=== PATIENT | male | born 1950 | race African-American/Black ===

== ENCOUNTER 2016-05-17 17:06 | Inpatient (IN) ==
[2016-05-17] MEDS ORDERED: PANTOPRAZOLE 40 MG VIAL IV STA (19:10)
[2016-05-17] MEDS ORDERED: ONDANSETRON 4 MG/2 ML VIAL IV STA (19:10)
[2016-05-17] MEDS ORDERED: SODIUM CHLORIDE 0.9% 1,000 ML IV STA (19:10)
[2016-05-17] MEDS ORDERED: METOPROLOL TARTRATE 5 MG/5 ML VIAL IV STA (19:12)
[2016-05-17] MEDS ORDERED: METOCLOPRAMIDE 10 MG/2 ML VIAL IV STA (19:12)
--- NOTE | 2016-05-17 19:15 | Emergency Department Note ---
Arrival - Arrival Chief Complaint: Neuro Stated Complaint: LEG CRAMPS ED Nursing Triage Note: PT C/O WEAKNESS TO LEFT UPPER AND LOWER EXTREMITIES. PT STATES HAD MUSCLES SPASMS IN LEFT LEG 2 DAYS AGO, GIVEN BACLOFEN BY DR VELOZ. PT STATES HE HAS HAD N/V SINCE THEN. PT STATES SINCE YESTERDAY MORNING HE HAS HAD INCREASED WEAKNESS IN LEFT ARM/HAND. STATES HAS DROPPED HIS CANE AND A GLASS A WATER WITHOUT REALIZING HE DID NOT HAVE A [facility]. NO FACIAL DROOP OR SLURRED SPEECH NOTED. Mode of Arrival: Wheelchair Limitations: No Limitations Source: Patient Time Seen by Provider: 05/17/16 19:10 - History of Present Illness HPI Narrative: This 65-year-old black male presents primarily for complaints of nausea and vomiting following beginning Lyrica for muscle cramps of the left lower extremity and to a lesser extent the right lower extremity. However the patient also gives a history of feeling weak with the left upper and lower extremities approximately 7-10 days ago. However on further questioning it would appear his weakness is more association with cramps and what that does to his function. He denies any recent headaches, visual changes, chest pain, shortness breath, diarrhea, chills, fever, slurred speech, or focal weakness. Currently he is in no acute distress. Onset (ago): day(s) Consistency: constant Severity: moderate Allergies/Adverse Reactions: Allergies Allergy/AdvReac Type Severity Reaction Status Date / Time metformin Allergy Vomiting Verified 05/17/16 17:38 Home Medications: Home Medications Medication Instructions Recorded Confirmed Type Aspirin EC Tab 81 mg PO DAILY 05/17/16 05/17/16 History Atorvastatin [Lipitor] 10 mg PO DAILY 05/17/16 05/17/16 History Baclofen Tab [Lioresal] 5 mg PO TID W/MEALS 05/17/16 05/17/16 History Cetirizine Tab [ZyrTEC Tab] 10 mg PO BEDTIME 05/17/16 05/17/16 History Doxazosin [Cardura] 4 mg PO DAILY 05/17/16 05/17/16 History Ferrous Sulfate Tab [Feosol 325 mg PO BID 05/17/16 05/17/16 History Original Tab] Isosorbide Mononitrate [Isosorbide 30 mg PO DAILY 05/17/16 05/17/16 History Mononitrate ER] Mupirocin 2% Oint [Bactroban 2% 1 applic TOP BID 05/17/16 05/17/16 History Oint] glipiZIDE [Glipizide] 5 mg PO BID 05/17/16 05/17/16 History hydrALAZINE TAB [Apresoline Tab] 75 mg PO TID 05/17/16 05/17/16 History Review of System - Review of System 12 point system: reviewed and no additional remarkable complaints except as stated - Review of System Constitutional: Present: as per HPI Respiratory: Present: as per HPI Cardiovascular: Present: as per HPI Gastrointestinal: Present: as per HPI Neurological: Present: as per HPI Medical,Surgical,& Family Hx - Medical History Cardio: History of: Hypertension Endocrine: History of: Diabetes Mellitus (IDDM), Dyslipidemia - Social History Smoking Status: Never smoker Frequency of Alcohol Use: None Type of Drug Use: None Exam Physical Examination: GENERAL: Well developed, well nourished black male in no acute distress. HEENT: Normocephalic. No trauma. Moist mucous membranes. EOMI. PERRLA. ENT normal NECK: Supple. No adenopathy. CARDIAC: Regular. No murmurs. Heart rate 70 CHEST: Clear to auscultation. No respiratory distress. O2 sat 98% ABDOMEN: Soft. Nontender. Active bowel sounds. EXTREMITIES: No trauma. Normal ROM. No pedal edema. Right BKA SKIN: No diaphoresis. No rash. NEURO: Alert. Oriented 3. Motor, sensory, vibratory intact with no evidence of left-sided weakness at this time. Vital Signs: Vital Signs Temperature 97.6 F 05/17/16 17:28 Pulse Rate 70 05/17/16 17:28 Respiratory Rate 18 05/17/16 17:28 Blood Pressure 229/88 05/17/16 17:28 O2 Sat by Pulse Oximetry 98 05/17/16 17:28 Course - Reevaluation(s) Reevaluation #1: Discussed with patient need for hospitalization and follow-up on his abnormal laboratory values. - Consultations Consultation #1: Discussed with Dr. Alexi Solomon who will admit to Dr. Kat Liu further evaluation treatment. Results - Labs CBC & BMP: 05/17/16 19:36 05/17/16 19:36 Labs: I have reviewed the laboratory noted the abnormal cardiac enzymes. - Impressions EKG: First-degree heart block, normal QRS duration. Left ventricular hypertrophy with left ventricular strain. Heart rate 61. No acute injury pattern noted. - Diagnostic Findings Procedure: Abdominal x-ray: image reviewed by me, report reviewed by me ( nonspecific gas and feces), CT: image reviewed by me, report reviewed by me ( head: No acute injury pattern) Disposition Clinical Impression: abnormal cardiac enzymes, muscle spasms Case discussed with: patient Disposition: Still a Patient Condition: Stable Time of Disposition: 21:22
[2016-05-17] MEDS ORDERED: PANTOPRAZOLE 40 MG VIAL IV ONE (19:31)
[2016-05-17] MEDS ORDERED: ONDANSETRON 4 MG/2 ML VIAL ONE (19:31)
[2016-05-17] MEDS ORDERED: METOPROLOL TARTRATE 5 MG/5 ML VIAL IV ONE (19:31)
[2016-05-17] MEDS ORDERED: METOCLOPRAMIDE 10 MG/2 ML VIAL ONE (19:31)
--- NOTE | 2016-05-17 19:42 | CT Report ---
Exam: CT scan of brain without contrast Date: 05/17/2016 Indication: Left-sided weakness Comparison: None Patient's classification: Emergency department Technical: Images were obtained from the skull base to the vertex without the use of intravenous contrast. Dose reduction was performed with decreasing kv and mA and automated exposure Total DLP: 1053.4 mGy*cm Findings: The brainstem, cerebellum and cerebral hemispheres are intact. The paranasal sinuses are unremarkable. Mastoids are intact. The ventricles are located in normal position without midline shift or mass effect. The globes and sella are intact. The calvarium is unremarkable. Impression: 1. No acute hemorrhage infarction or mass effect. If symptoms or MRI is recommended. PROCEDURE INTERPRETED AT [facility] DEPARTMENT OF RADIOLOGY Final Report Signed by: Dr. Tarun Viera
--- NOTE | 2016-05-17 19:45 | XRay Report ---
Exam: XR abdomen 2V Date: 05/17/2016 7:10 PM Indication: Abdominal pain Comparison: None Technical:Supine erect imaging Findings: Mild cardiomegaly present. The liver and spleen shadows are mostly obscured. The renal shadows are obscured Nonspecific GI pattern is present. Degenerative change present along the thoracolumbar spine. Vascular plaque is present. Impression: 1. Nonspecific GI pattern 2. Degenerative spondylosis changes thoracolumbar spine and hips reveal mild arthritic change present PROCEDURE INTERPRETED AT [facility] DEPARTMENT OF RADIOLOGY Final Report Signed by: Dr. Tarun Viera
[2016-05-17 20:14] LABS: Basophils % 0.6 % (0.0-0.8); Eosinophils # 0.1 10*3/uL (0.0-0.87); Eosinophils % 1.1 % (0.00-10.9); Hematocrit 36.7 VOL% (42.0-52.0); Hemoglobin 11.9 GM/DL (14.0-18.0); Immature Granulocytes % 0.5 %; Immature Granulocytes Absolute 0.03 #; Lymphocytes # 0.6 10*3/uL (1.4-4.0); Lymphocytes % 9.6 % (21.2-54.2); Mean Corpuscular HGB Conc 32.4 GM/DL (32-36); Mean Corpuscular Hemoglobin 30 PG (27-34); Mean Corpuscular Volume 92.4 FL (87-102); Mean Platelet Volume 12.9 FL (9.6-12.0); Monocytes # 0.4 10*3/uL (0.11-0.8); Monocytes % 5.6 % (1.7-12.7); Neutrophils # 5.4 10*3/uL (1.4-7.4); Neutrophils % 82.6 % (38.7-73.9); Platelet Count 169 10*3/uL (130-400); Red Blood Count 3.97 10*6/uL (3.8-5.5); White Blood Count 6.6 10*3/uL (4.5-13.71)
[2016-05-17 20:33] LABS: Albumin 3.6 G/DL (3.4-5.0); Bilirubin,Total 0.6 MG/DL (0.2-1.0); CKMB % 1.2 %; Calcium 9.2 MG/DL (8.5-10.1); Osmolality,Calculated 303.3 MOS/KG (273-304); Potassium 4.8 MMOL/L (3.5-5.1); Total Protein 7.2 G/DL (6.4-8.3)
[2016-05-17 20:34] LABS: Troponin I Only 0.054 NG/ML (0.00-0.045)
--- NOTE | 2016-05-17 20:38 | EKG Report ---
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
[2016-05-17] MEDS ORDERED: hydrALAZINE 20 MG/1 ML VIAL IV STA (21:02)
[2016-05-17] MEDS ORDERED: hydrALAZINE 20 MG/1 ML VIAL ONE (21:02)
[2016-05-17] MEDS ORDERED: ONDANSETRON 4 MG/2 ML VIAL IV PRN (21:23)
[2016-05-17 23:12] LABS: Apearance,Urine Slightly Hazy (Clear); Bilirubin,Urine Negative (Negative); Blood, Urine Small mg/dL (Negative); Glucose,Urine (UA) 50 mg/dL (Negative); Granular Casts,Urine 4 /LPF (0-1); Hyaline Casts,Urine 3 /LPF (0-3); Ketones,Urine 5 mg/dL (Negative); Mucus,Urine Occasional /LPF (Occasional); Nitrite,Urine Negative (Negative); Protein,Urine >=500 MG/DL; RBC,Urine 7 /HPF (0-4); Urine Color Yellow (Yellow); Urine Specific Gravity 1.019 (1.001-1.035); Urine Urobilinogen < 2.0 EU/DL (0.2-1.0); WBC,Urine 1 /HPF (0-6)
[2016-05-17] MEDS ORDERED: DEXTROSE 50% 25 GM/50 ML VIAL IV PRN (23:17)
[2016-05-17] MEDS ORDERED: GLUCAGON 1 MG VIAL IM PRN (23:17)
[2016-05-18 04:28] LABS: CKMB % 1.1 %
[2016-05-18 04:32] LABS: Troponin I Only 0.073 NG/ML (0.00-0.045)
--- NOTE | 2016-05-18 07:34 | EKG Report ---
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
[2016-05-18] MEDS: glipiZIDE 5 MG TABLET PO SCH ×2 (08:34→17:17)
[2016-05-18] MEDS: INSULIN LISPRO 100 UNIT/ML SUBCUT SCH ×4 (08:37→21:02)
[2016-05-18] MEDS: PANTOPRAZOLE 40 MG TABLET PO SCH (08:38)
[2016-05-18] MEDS: NITROGLYCERIN 2% OINT 1 INCH/GM PACK TOP SCH ×2 (08:57→21:07)
--- NOTE | 2016-05-18 14:17 | Internal Med History&Physical ---
Assessment and Plan (1) Diabetes Status: Chronic Current Visit: Yes Qualifiers: Diabetes mellitus type: type 2 Diabetes mellitus complication status: with circulatory complication Diabetes mellitus complication detail: with peripheral angiopathy with gangrene Diabetes mellitus group home insulin use: without technician terminal and repeater use Qualified Code(s): E11.52 - Type 2 diabetes mellitus with diabetic peripheral angiopathy with gangrene (2) Hypertension Problem details: uncontrolled and historically uncontrolled Status: Chronic Current Visit: Yes Qualifiers: Hypertension type: essential hypertension Qualified Code(s): I10 - Essential (primary) hypertension (3) Numbness and tingling Status: Acute Current Visit: Yes (4) Noncompliance Status: Acute Current Visit: Yes History of Present Illness Chief complaint: acute numbness History of present illness: Mr. Casarez is a 65 year old male with history of HTN, DM, left below knee amputation, OA, who presented to ER with numbness and tingling to arms acutely. CT brain negative. He was found to have taken an overdose of Baclofen because of cramping in his leg. Home Medications Medication Instructions Recorded Confirmed Type Aspirin EC Tab 81 mg PO DAILY 05/17/16 05/17/16 History Atorvastatin [Lipitor] 10 mg PO DAILY 05/17/16 05/17/16 History Baclofen Tab [Lioresal] 5 mg PO TID W/MEALS 05/17/16 05/17/16 History Cetirizine Tab [ZyrTEC Tab] 10 mg PO BEDTIME 05/17/16 05/17/16 History Doxazosin [Cardura] 4 mg PO DAILY 05/17/16 05/17/16 History Ferrous Sulfate Tab [Feosol 325 mg PO BID 05/17/16 05/17/16 History Original Tab] Isosorbide Mononitrate [Isosorbide 30 mg PO DAILY 05/17/16 05/17/16 History Mononitrate ER] Mupirocin 2% Oint [Bactroban 2% 1 applic TOP BID 05/17/16 05/17/16 History Oint] glipiZIDE [Glipizide] 5 mg PO BID 05/17/16 05/17/16 History hydrALAZINE TAB [Apresoline Tab] 75 mg PO TID 05/17/16 05/17/16 History Allergies Allergy/AdvReac Type Severity Reaction Status Date / Time metformin Allergy Vomiting Verified 05/17/16 17:38 Medical,Surgical,& Family Hx - Medical History Cardio: History of: Hypertension Psychological: History of: Anxiety Disorders HEENT: History of: Eye Problem Endocrine: History of: Diabetes Mellitus (IDDM), Dyslipidemia Gastrointestinal: History of: GERD Musculoskeletal: History of: Amputation Hematology: History of: Anemia (chronic disease) - Surgical History Orthopedic Surgeries: Surgical HX of;: Orthopedic Surgery (left lower extremitiy amputation) - Family History Family History: Reports;: Family Diabetes, Family Heart Disease, Family Hypertension - Social History Smoking Status: Never smoker Frequency of Alcohol Use: None Type of Drug Use: None Marital Status: Lives With:: Spouse Functional capacity: independent ambulation - Constitutional Constitutional: Present: weakness - Respiratory Respiratory: Present: dyspnea (occasionaly) - Gastrointestinal Gastrointestinal: Present: nausea - Musculoskeletal Musculoskeletal: Present: arthralgias, myalgias - Neurological Neurological: Present: focal weakness Exam - Constitutional Vitals: Period Temp Pulse Resp BP Sys/Blankenship Pulse Ox Last 24 Hr 97.8 F-98.6 F 63-69 16-18 150-214/54-83 98-100 General appearance: no acute distress - Head Head exam: Present: normocephalic - Eye Eye exam: Present: EOMI - Respiratory Respiratory exam: Present: clear to auscultation bilaterally - Cardiovascular Cardiovascular exam: Present: regular rate and rhythm - GI/Abdominal GI/Abdominal exam: Present: soft. Absent: tenderness - Extremities Exam Extremities exam: Absent: edema (left lower extremitiy) - Neurological Exam Neurological exam: Present: alert, oriented X3 - Psychiatric Psychiatric exam: Present: normal affect, normal mood - Skin Skin exam: Present: warm, dry Results - Labs CBC & BMP: 05/17/16 19:36 05/17/16 19:36 - EKG EKG shows: sinus rhythm - Diagnostic Findings Procedure: Chest x-ray: report reviewed by me Quality Measures - Stroke Onset of Symptoms Date: 05/14/16
[2016-05-18] MEDS ORDERED: DOXAZOSIN 4 MG TABLET PO ONE (20:16)
[2016-05-18] MEDS ORDERED: ASPIRIN EC 81 MG TABLET PO ONE (20:17)
[2016-05-18] MEDS ORDERED: ISOSORBIDE MONONITRATE 30 MG TABLET PO ONE (20:19)
--- NOTE | 2016-05-18 20:42 | Discharge Summary ---
Hospital Course - Hospital Course Hospital Course: Mr. Casarez is a 65 year old male with history of HTN, DM, left below knee amputation, OA, who presented to ER with numbness and tingling to arms acutely. CT brain negative. He was found to have taken an overdose of Baclofen because of cramping in his leg. Will discharge him to home and will discontinue Baclofen. He can try Zanaflex at bedtime for muscle cramps. Diagnosis - Discharge Diagnosis (1) Diabetes Status: Chronic (2) Hypertension Status: Chronic (3) Numbness and tingling Status: Acute (4) Noncompliance Status: Acute Discharge Plan - Discharge Data Disposition: Disch To Home/Self Care Condition at Discharge: Stable Discharge Diet: heart healthy, low fat, low cholesterol Activity: increase activity as tolerated - Discharge Medications New glipiZIDE [Glucotrol] 15 mg PO BIDAC #60 tablet hydrALAZINE TAB [Apresoline Tab] 100 mg PO TID #90 tablet Continue Doxazosin [Cardura] 4 mg PO DAILY Mupirocin 2% Oint [Bactroban 2% Oint] 1 applic TOP BID Isosorbide Mononitrate [Isosorbide Mononitrate ER] 30 mg PO DAILY Cetirizine Tab [ZyrTEC Tab] 10 mg PO BEDTIME Atorvastatin [Lipitor] 10 mg PO DAILY Aspirin EC Tab 81 mg PO DAILY Ferrous Sulfate Tab [Feosol Original Tab] 325 mg PO BID Discontinued glipiZIDE [Glipizide] 5 mg PO BID hydrALAZINE TAB [Apresoline Tab] 75 mg PO TID Baclofen Tab [Lioresal] 5 mg PO TID W/MEALS - Follow Up or Referral Follow Up: Elizabeth Liu DO [Physician] - - Forms/Instructions Additional Discharge Instructions: Follow up with Dr. Saúl Liu at clinic within 2 weeks. He can be discharged tomorrow, Saturday, morning after breakfast. Exam - Constitutional Vitals: Period Temp Pulse Resp BP Sys/Blankenship Pulse Ox Last 24 Hr 97.8 F-98.6 F 62-69 16-20 150-214/54-83 98-100 Exam: General appearance: no acute distress - Respiratory Respiratory exam: Present: clear to auscultation bilaterally - Cardiovascular Cardiovascular exam: Present: regular rate and rhythm - GI/Abdominal GI/Abdominal exam: Present: soft. Absent: tenderness - Extremities Exam Extremities exam: Absent: edema (left lower extremitiy) - Neurological Exam Neurological exam: Present: alert, oriented X3 - Psychiatric Psychiatric exam: Present: normal affect, normal mood - Skin Skin exam: Present: warm, dry Discharge Results Labs on day of discharge: Labs from last 24 hours 05/18/16 05/18/16 05/18/16 19:54 15:22 11:21 POC Glucose 208 H 199 H 120 H Total Creatine Kinase CK-MB (CK-2) CK and CKMB Interp Troponin I 05/18/16 05/18/16 07:02 03:28 POC Glucose 172 H Total Creatine Kinase 596 H D CK-MB (CK-2) 6.7 H CK and CKMB Interp 1.1 Troponin I 0.073 H D DS: Provider Date of admission: 05/17/16 21:22 Primary care physician: . No PCP Attending physician on admission: Elizabeth Liu DO Discharging clinician: Elizabeth Liu DO Expected date of discharge: 05/19/16
[2016-05-18] MEDS ORDERED: CETIRIZINE 10 MG TABLET PO SCH (21:00)
[2016-05-18] MEDS ORDERED: ROSUVASTATIN 10 MG TABLET PO SCH (21:00)
[2016-05-19] MEDS ORDERED: DOXAZOSIN 4 MG TABLET PO SCH (09:00)
[2016-05-19] MEDS ORDERED: ASPIRIN EC 81 MG TABLET PO SCH (09:00)
[2016-05-19] MEDS ORDERED: ISOSORBIDE MONONITRATE 30 MG TABLET PO SCH (09:00)
[2016-05-19] MEDS: INSULIN LISPRO 100 UNIT/ML SUBCUT SCH ×2 (09:45→12:34)
--- NOTE | 2016-05-19 09:48 | Internal Med Progress Note ---
Assessment and Plan (1) Numbness and tingling Status: Acute Assessment and plan: 65-year-old male admitted to acute care * Diabetes. Blood sugar is low this morning. Will recheck Accu-Chek. May have to decrease his dose * Hypertension. Blood pressure is stable * Baclofen overdose. This has been discontinued. * Patient will go home. His blood sugar was 147 today Current Visit: Yes (2) Diabetes Status: Chronic Current Visit: Yes Qualifiers: Diabetes mellitus type: type 2 Diabetes mellitus complication status: with circulatory complication Diabetes mellitus complication detail: with peripheral angiopathy with gangrene Diabetes mellitus meterman insulin use: without [place] [facility] use Qualified Code(s): E11.52 - Type 2 diabetes mellitus with diabetic peripheral angiopathy with gangrene (3) Hypertension Problem details: uncontrolled and historically uncontrolled Status: Chronic Current Visit: Yes Qualifiers: Hypertension type: essential hypertension Qualified Code(s): I10 - Essential (primary) hypertension Internal Medicine - PN: Subj Interval history: Patient is feeling fine this morning. No chest pain or shortness of breath. He feels he is back to normal and wants to go home. Exam (Progress Note) - Constitutional Vitals: Period Temp Pulse Resp BP Sys/Blankenship Pulse Ox Last 24 Hr 97.8 F-98.7 F 62-75 18-20 140-192/60-84 97-100 General appearance: over weight - Head Head exam: Present: normal inspection - Eye Eye exam: Present: EOMI - Neck Neck exam: Present: normal inspection - Respiratory Respiratory exam: Present: clear to auscultation bilaterally - GI/Abdominal GI/Abdominal exam: Present: normal bowel sounds, soft. Absent: tenderness - Extremities Exam Extremities exam: Present: other (Right below-knee amputation ) Results - Labs CBC & BMP: 05/17/16 19:36 05/17/16 19:36 Quality Measures - Stroke Onset of Symptoms Date: 05/14/16 Specialty Discharge - Follow Up or Referrals Follow up with: Elizabeth Liu DO [Physician] -
[2016-05-19 10:30] VITALS: BP 133/55
[2016-05-19] MEDS: glipiZIDE 5 MG TABLET PO SCH (10:42)
[2016-05-19] MEDS: NITROGLYCERIN 2% OINT 1 INCH/GM PACK TOP SCH (10:42)
[2016-05-19] MEDS: PANTOPRAZOLE 40 MG TABLET PO SCH (10:42)
== END 2016-05-19 12:45 | disposition home or self-care (01) | DRG 918 ==
LOC: N.ED 17:06 → N.EDINP 21:22 → N.3E 22:46
PROVIDERS: ADMIT Internal Medicine; ATTEND Internal Medicine

== ENCOUNTER 2018-05-09 05:58 | Inpatient (IN) ==
[2018-05-09] MEDS ORDERED: DIAZEPAM 5 MG TABLET PO ONE (06:00)
[2018-05-09] MEDS ORDERED: diphenhydrAMINE CAP 25 MG CAPSULE PO ONE (06:00)
[2018-05-09] MEDS ORDERED: POTASSIUM CHLORIDE RIDER 10 MEQ in PREMIX 1 EACH IV PRN (06:00)
[2018-05-09] MEDS ORDERED: MAGNESIUM SULF RIDER 2 GM in PREMIX 1 EACH IV PRN (06:00)
[2018-05-09] MEDS ORDERED: SODIUM CHLORIDE 0.9% 1,000 ML IV SCH (06:00)
[2018-05-09] MEDS ORDERED: ASPIRIN 325 MG TABLET PO ONE (06:00)
[2018-05-09] MEDS ORDERED: diphenhydrAMINE CAP 25 MG CAPSULE ONE (06:54)
[2018-05-09] MEDS ORDERED: DIAZEPAM 5 MG TABLET ONE (06:54)
[2018-05-09] MEDS ORDERED: ASPIRIN 325 MG TABLET ONE (06:55)
[2018-05-09] MEDS ORDERED: LIDOCAINE 1% 20 ML VIAL ONE (08:26)
[2018-05-09] MEDS ORDERED: MIDAZOLAM 2 MG/2 ML VIAL ONE (08:26)
[2018-05-09] MEDS ORDERED: HYDROmorphone 2 MG/1 ML VIAL ONE (08:26)
[2018-05-09] MEDS ORDERED: hydrALAZINE 20 MG/1 ML VIAL ONE (09:06)
[2018-05-09] MEDS ORDERED: NITROGLYCERIN DRIP 50 MG/250 ML BOTTLE IV ONE (09:27)
[2018-05-09] MEDS ORDERED: VERAPAMIL 5 MG/2 ML VIAL ONE (09:27)
[2018-05-09] MEDS ORDERED: HEPARIN 5,000 UNIT/1 ML VIAL ONE (09:32)
[2018-05-09] MEDS ORDERED: NITROGLYCERIN SL 0.4 MG TABLET SL PRN (11:39)
[2018-05-09] MEDS ORDERED: ACETAMINOPHEN 325 MG TABLET PO PRN (11:39)
[2018-05-09] MEDS ORDERED: HYDROmorphone 2 MG/1 ML VIAL IV PRN (11:39)
[2018-05-09] MEDS ORDERED: ZALEPLON 5 MG CAPSULE PO PRN (11:39)
[2018-05-09] MEDS ORDERED: TICAGRELOR 90 MG TABLET ONE (11:43)
[2018-05-09] MEDS ORDERED: SODIUM CHLORIDE 0.45% 1,000 ML IV SCH (12:00)
[2018-05-09] MEDS ORDERED: amLODIPine 10 MG TABLET PO ONE (15:23)
[2018-05-09] MEDS: SODIUM CHLORIDE 0.45% 1,000 ML IV SCH (17:38)
[2018-05-09] MEDS: ISOSORBIDE DINITRATE 20 MG TABLET PO SCH (22:16)
[2018-05-10] MEDS: ONDANSETRON 4 MG/2 ML VIAL IV PRN ×2 (06:17→09:45)
[2018-05-10] MEDS: ISOSORBIDE DINITRATE 20 MG TABLET PO SCH ×3 (10:47→20:26)
[2018-05-10] MEDS: TICAGRELOR 90 MG TABLET PO SCH ×2 (10:47→20:26)
[2018-05-10 12:08] LABS: Basophils % 0.2 % (0.0-0.8); Eosinophils % 0.2 % (0.00-10.9); Hematocrit 31.8 VOL% (42.0-52.0); Hemoglobin 9.7 GM/DL (14.0-18.0); Immature Granulocytes % 0.4 %; Immature Granulocytes Absolute 0.04 #; Lymphocytes # 0.4 10*3/uL (1.4-4.0); Lymphocytes % 3.9 % (21.2-54.2); Mean Corpuscular HGB Conc 30.5 GM/DL (32-36); Mean Corpuscular Hemoglobin 29 PG (27-34); Mean Corpuscular Volume 93.5 FL (87-102); Mean Platelet Volume 11.6 FL (9.6-12.0); Monocytes # 0.6 10*3/uL (0.11-0.8); Monocytes % 6.7 % (1.7-12.7); Neutrophils # 7.9 10*3/uL (1.4-7.4); Neutrophils % 88.6 % (38.7-73.9); Platelet Count 176 T/CUMM (130-400); Red Cell Distribution Width 15.3 % (9.3-17.3); White Blood Count 8.9 T/CUMM (4-12)
[2018-05-10 12:26] LABS: Albumin 3.4 G/DL (3.4-5.0); Bilirubin,Total 0.5 MG/DL (0.2-1.0); Calcium 9.2 MG/DL (8.5-10.1); Osmolality,Calculated 294.4 MOS/KG (273-304); Potassium 4.3 MMOL/L (3.5-5.1); Total Protein 7.5 G/DL (6.4-8.3)
[2018-05-10 12:44] LABS: Anisocytosis 1+; Lymphocytes 5 % (20-55); Platelet Estimate Normal; Segmented Neutrophils 88 % (50-85); Total Cells Counted 100
[2018-05-10 12:45] LABS: Macrocytosis 1+
[2018-05-10] MEDS ORDERED: FUROSEMIDE 80 MG TABLET PO ONE (13:28)
[2018-05-11] MEDS: ISOSORBIDE DINITRATE 20 MG TABLET PO SCH ×3 (08:20→22:37)
[2018-05-11] MEDS: TICAGRELOR 90 MG TABLET PO SCH ×2 (08:20→22:37)
[2018-05-11] MEDS: SODIUM CHLORIDE 0.45% 1,000 ML IV SCH (10:04)
[2018-05-11] MEDS ORDERED: FUROSEMIDE 80 MG TABLET PO ONE (11:21)
[2018-05-11] MEDS: amLODIPine 5 MG TABLET PO SCH (11:37)
[2018-05-12 07:41] LABS: Calcium 9.3 MG/DL (8.5-10.1); Osmolality,Calculated 293.4 MOS/KG (273-304)
[2018-05-12] MEDS ORDERED: ONDANSETRON ODT 4 MG TABLET PO ONE (09:00)
[2018-05-12] MEDS ORDERED: ALBUTEROL 2.5 MG/3 ML NEB RESP TX PRN (09:02)
[2018-05-12] MEDS ORDERED: DEXTROSE 50% 25 GM/50 ML VIAL IV PRN (09:06)
[2018-05-12] MEDS ORDERED: GLUCAGON 1 MG VIAL IM PRN (09:06)
[2018-05-12] MEDS: TICAGRELOR 90 MG TABLET PO SCH (09:13)
[2018-05-12] MEDS: ISOSORBIDE DINITRATE 20 MG TABLET PO SCH ×3 (09:13→20:52)
[2018-05-12] MEDS: CARVEDILOL 3.125 MG TABLET PO SCH ×3 (09:14→20:52)
[2018-05-12] MEDS: amLODIPine 5 MG TABLET PO SCH (09:14)
[2018-05-12] MEDS ORDERED: CLOPIDOGREL 300 MG TABLET PO ONE (10:26)
[2018-05-12] MEDS: INSULIN LISPRO 100 UNIT/ML SUBCUT SCH ×3 (12:58→20:55)
[2018-05-12] MEDS ORDERED: ONDANSETRON ODT 4 MG TABLET PO PRN (13:50)
[2018-05-12] MEDS: CALCIUM CARBONATE CHEW 500 MG TABLET PO PRN ×2 (15:15→20:52)
[2018-05-12] MEDS ORDERED: BISACODYL 5 MG TABLET PO ONE (19:29)
[2018-05-12] MEDS: PIOGLITAZONE 15 MG TABLET PO SCH (20:52)
[2018-05-12] MEDS: ROSUVASTATIN 10 MG TABLET PO SCH (20:52)
[2018-05-12] MEDS: ASPIRIN EC 81 MG TABLET PO SCH (20:52)
[2018-05-12] MEDS: INSULIN GLARGINE 100 UNIT/ML SUBCUT SCH (20:54)
[2018-05-12] MEDS: LATANOPROST 0.005% OPH SOLN 2.5 ML BOTTLE RIGHT EYE SCH (20:57)
[2018-05-12] MEDS: DORZOLAMIDE/TIMOLOL OPH SOLN 10 ML BOTTLE RIGHT EYE SCH (20:58)
[2018-05-13 07:29] LABS: Basophils % 0.6 % (0.0-0.8); Eosinophils # 0.3 10*3/uL (0.0-0.87); Hematocrit 31.2 VOL% (42.0-52.0); Hemoglobin 9.3 GM/DL (14.0-18.0); Immature Granulocytes % 0.9 %; Immature Granulocytes Absolute 0.06 #; Lymphocytes # 0.7 10*3/uL (1.4-4.0); Lymphocytes % 10.8 % (21.2-54.2); Mean Corpuscular HGB Conc 29.8 GM/DL (32-36); Mean Corpuscular Hemoglobin 29 PG (27-34); Mean Corpuscular Volume 97.8 FL (87-102); Mean Platelet Volume 11.9 FL (9.6-12.0); Monocytes # 0.7 10*3/uL (0.11-0.8); Monocytes % 9.8 % (1.7-12.7); Neutrophils # 4.9 10*3/uL (1.4-7.4); Neutrophils % 72.9 % (38.7-73.9); Platelet Count 146 T/CUMM (130-400); Red Blood Count 3.19 MC/CUMM (3.8-5.5); White Blood Count 6.7 T/CUMM (4-12)
[2018-05-13 07:34] LABS: Calcium 7.5 MG/DL (8.5-10.1); Osmolality,Calculated 291.5 MOS/KG (273-304); Potassium 4.9 MMOL/L (3.5-5.1)
[2018-05-13] MEDS: CLOPIDOGREL 75 MG TABLET PO SCH (09:04)
[2018-05-13] MEDS: ISOSORBIDE DINITRATE 20 MG TABLET PO SCH ×3 (09:04→22:13)
[2018-05-13] MEDS: amLODIPine 5 MG TABLET PO SCH (09:04)
[2018-05-13] MEDS: CARVEDILOL 3.125 MG TABLET PO SCH (09:04)
[2018-05-13] MEDS: INSULIN LISPRO 100 UNIT/ML SUBCUT SCH ×4 (09:09→22:14)
[2018-05-13] MEDS ORDERED: CARVEDILOL 3.125 MG TABLET PO ONE (14:38)
[2018-05-13] MEDS: DORZOLAMIDE/TIMOLOL OPH SOLN 10 ML BOTTLE RIGHT EYE SCH ×2 (14:52→22:19)
[2018-05-13] MEDS ORDERED: MAGNESIUM HYDROXIDE SUSP 30 ML UDCUP PO PRN (15:01)
[2018-05-13] MEDS: PIOGLITAZONE 15 MG TABLET PO SCH (22:11)
[2018-05-13] MEDS: ROSUVASTATIN 10 MG TABLET PO SCH (22:12)
[2018-05-13] MEDS: ASPIRIN EC 81 MG TABLET PO SCH (22:12)
[2018-05-13] MEDS: CARVEDILOL 6.25 MG TABLET PO SCH (22:13)
[2018-05-13] MEDS: INSULIN GLARGINE 100 UNIT/ML SUBCUT SCH (22:16)
[2018-05-13] MEDS: LATANOPROST 0.005% OPH SOLN 2.5 ML BOTTLE RIGHT EYE SCH (22:20)
[2018-05-14 06:05] LABS: Basophils % 0.4 % (0.0-0.8); Eosinophils # 0.4 10*3/uL (0.0-0.87); Eosinophils % 5.6 % (0.00-10.9); Hematocrit 30.3 VOL% (42.0-52.0); Hemoglobin 9.3 GM/DL (14.0-18.0); Immature Granulocytes % 0.9 %; Immature Granulocytes Absolute 0.06 #; Lymphocytes # 0.7 10*3/uL (1.4-4.0); Lymphocytes % 10.2 % (21.2-54.2); Mean Corpuscular HGB Conc 30.7 GM/DL (32-36); Mean Corpuscular Hemoglobin 29 PG (27-34); Mean Corpuscular Volume 95.3 FL (87-102); Mean Platelet Volume 12.1 FL (9.6-12.0); Monocytes # 0.7 10*3/uL (0.11-0.8); Monocytes % 10.5 % (1.7-12.7); Neutrophils # 4.9 10*3/uL (1.4-7.4); Neutrophils % 72.4 % (38.7-73.9); Platelet Count 191 T/CUMM (130-400); Red Blood Count 3.18 MC/CUMM (3.8-5.5); Red Cell Distribution Width 14.7 % (9.3-17.3); White Blood Count 6.8 T/CUMM (4-12)
[2018-05-14 06:21] LABS: Calcium 8.7 MG/DL (8.5-10.1); Osmolality,Calculated 297.3 MOS/KG (273-304); Potassium 4.2 MMOL/L (3.5-5.1)
[2018-05-14] MEDS: INSULIN LISPRO 100 UNIT/ML SUBCUT SCH ×4 (08:24→21:32)
[2018-05-14] MEDS: amLODIPine 5 MG TABLET PO SCH (08:24)
[2018-05-14] MEDS: CLOPIDOGREL 75 MG TABLET PO SCH (08:24)
[2018-05-14] MEDS: DORZOLAMIDE/TIMOLOL OPH SOLN 10 ML BOTTLE RIGHT EYE SCH ×2 (08:24→21:17)
[2018-05-14] MEDS: CARVEDILOL 6.25 MG TABLET PO SCH (08:24)
[2018-05-14] MEDS: ISOSORBIDE DINITRATE 20 MG TABLET PO SCH ×3 (08:24→21:17)
[2018-05-14] MEDS: ALBUTEROL 2.5 MG/3 ML NEB RESP TX SCH ×2 (14:16→19:46)
[2018-05-14] MEDS: CALCIUM CARBONATE CHEW 500 MG TABLET PO PRN (17:18)
[2018-05-14] MEDS: BENZONATATE 100 MG CAPSULE PO PRN (19:59)
[2018-05-14] MEDS: LATANOPROST 0.005% OPH SOLN 2.5 ML BOTTLE RIGHT EYE SCH (21:16)
[2018-05-14] MEDS: PIOGLITAZONE 15 MG TABLET PO SCH (21:17)
[2018-05-14] MEDS: BUDESONIDE/FORMOTEROL 160-4.5 INHALER 6 GM INH SCH (21:18)
[2018-05-14] MEDS: NEBIVOLOL 5 MG TABLET PO SCH (21:21)
[2018-05-14] MEDS: ROSUVASTATIN 10 MG TABLET PO SCH (21:21)
[2018-05-14] MEDS: INSULIN GLARGINE 100 UNIT/ML SUBCUT SCH (21:27)
[2018-05-14] MEDS: ASPIRIN EC 81 MG TABLET PO SCH (21:31)
[2018-05-15] MEDS: ALBUTEROL 2.5 MG/3 ML NEB RESP TX SCH ×4 (00:41→20:03)
[2018-05-15] MEDS: CALCIUM CARBONATE CHEW 500 MG TABLET PO PRN ×4 (00:49→20:26)
[2018-05-15] MEDS: BENZONATATE 100 MG CAPSULE PO PRN ×2 (04:13→20:26)
[2018-05-15 07:17] LABS: Basophils % 0.3 % (0.0-0.8); Eosinophils # 0.3 10*3/uL (0.0-0.87); Eosinophils % 4.9 % (0.00-10.9); Hematocrit 27.9 VOL% (42.0-52.0); Hemoglobin 8.4 GM/DL (14.0-18.0); Immature Granulocytes % 0.6 %; Immature Granulocytes Absolute 0.04 #; Lymphocytes # 0.6 10*3/uL (1.4-4.0); Lymphocytes % 9.3 % (21.2-54.2); Mean Corpuscular HGB Conc 30.1 GM/DL (32-36); Mean Corpuscular Hemoglobin 28 PG (27-34); Mean Corpuscular Volume 93.9 FL (87-102); Mean Platelet Volume 12.1 FL (9.6-12.0); Monocytes # 0.7 10*3/uL (0.11-0.8); Monocytes % 10.9 % (1.7-12.7); Neutrophils # 4.8 10*3/uL (1.4-7.4); Platelet Count 187 T/CUMM (130-400); Red Blood Count 2.97 MC/CUMM (3.8-5.5); Red Cell Distribution Width 14.6 % (9.3-17.3); White Blood Count 6.5 T/CUMM (4-12)
[2018-05-15 07:42] LABS: Calcium 8.6 MG/DL (8.5-10.1); Osmolality,Calculated 294.4 MOS/KG (273-304); Potassium 4.1 MMOL/L (3.5-5.1)
[2018-05-15] MEDS: INSULIN LISPRO 100 UNIT/ML SUBCUT SCH ×4 (08:02→20:43)
[2018-05-15] MEDS: amLODIPine 5 MG TABLET PO SCH (08:11)
[2018-05-15] MEDS: ISOSORBIDE DINITRATE 20 MG TABLET PO SCH ×3 (08:12→21:51)
[2018-05-15] MEDS: CLOPIDOGREL 75 MG TABLET PO SCH (08:12)
[2018-05-15] MEDS: DORZOLAMIDE/TIMOLOL OPH SOLN 10 ML BOTTLE RIGHT EYE SCH ×2 (08:12→20:43)
[2018-05-15] MEDS: NEBIVOLOL 5 MG TABLET PO SCH (08:12)
[2018-05-15] MEDS: BUDESONIDE/FORMOTEROL 160-4.5 INHALER 6 GM INH SCH ×2 (08:13→21:50)
[2018-05-15] MEDS: ROSUVASTATIN 10 MG TABLET PO SCH (20:26)
[2018-05-15] MEDS: PIOGLITAZONE 15 MG TABLET PO SCH (20:26)
[2018-05-15] MEDS: ASPIRIN EC 81 MG TABLET PO SCH (20:27)
[2018-05-15] MEDS: INSULIN GLARGINE 100 UNIT/ML SUBCUT SCH (20:42)
[2018-05-15] MEDS: LATANOPROST 0.005% OPH SOLN 2.5 ML BOTTLE RIGHT EYE SCH (20:42)
[2018-05-16] MEDS: ALBUTEROL 2.5 MG/3 ML NEB RESP TX SCH ×2 (00:57→08:00)
[2018-05-16 05:00] LABS: Basophils % 0.4 % (0.0-0.8); Eosinophils # 0.2 10*3/uL (0.0-0.87); Eosinophils % 4.2 % (0.00-10.9); Hematocrit 26.3 VOL% (42.0-52.0); Immature Granulocytes % 0.5 %; Immature Granulocytes Absolute 0.03 #; Lymphocytes # 0.7 10*3/uL (1.4-4.0); Lymphocytes % 12.1 % (21.2-54.2); Mean Corpuscular HGB Conc 30.4 GM/DL (32-36); Mean Corpuscular Hemoglobin 29 PG (27-34); Mean Corpuscular Volume 95.3 FL (87-102); Monocytes # 0.7 10*3/uL (0.11-0.8); Monocytes % 11.8 % (1.7-12.7); Neutrophils # 3.9 10*3/uL (1.4-7.4); Platelet Count 175 T/CUMM (130-400); Red Blood Count 2.76 MC/CUMM (3.8-5.5); Red Cell Distribution Width 14.9 % (9.3-17.3); White Blood Count 5.5 T/CUMM (4-12)
[2018-05-16 05:16] LABS: Calcium 8.7 MG/DL (8.5-10.1); Osmolality,Calculated 298.4 MOS/KG (273-304); Potassium 4.2 MMOL/L (3.5-5.1)
[2018-05-16] MEDS: INSULIN LISPRO 100 UNIT/ML SUBCUT SCH ×2 (08:03→13:33)
[2018-05-16] MEDS: amLODIPine 5 MG TABLET PO SCH (08:48)
[2018-05-16] MEDS: CLOPIDOGREL 75 MG TABLET PO SCH (08:49)
[2018-05-16] MEDS: ISOSORBIDE DINITRATE 20 MG TABLET PO SCH (08:49)
[2018-05-16] MEDS: BUDESONIDE/FORMOTEROL 160-4.5 INHALER 6 GM INH SCH (08:50)
[2018-05-16] MEDS: DORZOLAMIDE/TIMOLOL OPH SOLN 10 ML BOTTLE RIGHT EYE SCH (08:50)
[2018-05-16] MEDS ORDERED: NEBIVOLOL 5 MG TABLET PO SCH ×2 (09:00)
[2018-05-16 12:58] VITALS: BP 143/61
== END 2018-05-16 14:37 | disposition home or self-care (01) | DRG 981 ==
LOC: N.CL 05:58 → N.5E 12:09 → SUPCPDRO 05-14 13:32
PROVIDERS: ADMIT Internal Medicine Cardiovascular Disease; ATTEND Internal Medicine Cardiovascular Disease

== ENCOUNTER 2018-06-01 01:52 | Inpatient (IN) ==
[2018-06-01 03:02] LABS: Allen Test Positive; Pt O2 Delivery Device Room Air
[2018-06-01 03:03] LABS: ABG PCO2 27.3 MM HG (35-48); ABG PH 7.368 (7.35-7.45); ABG TCO2 15.3 MMOL/L (23-27)
[2018-06-01 03:42] LABS: Basophils % 0.3 % (0.0-0.8); Eosinophils % 0.1 % (0.00-10.9); Immature Granulocytes % 0.5 %; Immature Granulocytes Absolute 0.04 #; Lymphocytes # 0.5 10*3/uL (1.4-4.0); Lymphocytes % 6.8 % (21.2-54.2); Mean Corpuscular HGB Conc 30.3 GM/DL (32-36); Mean Corpuscular Hemoglobin 30 PG (27-34); Mean Corpuscular Volume 97.5 FL (87-102); Mean Platelet Volume 12.2 FL (9.6-12.0); Monocytes # 0.3 10*3/uL (0.11-0.8); Monocytes % 4.1 % (1.7-12.7); Neutrophils # 7.1 10*3/uL (1.4-7.4); Neutrophils % 88.2 % (38.7-73.9); Platelet Count 129 T/CUMM (130-400); Red Blood Count 1.59 MC/CUMM (3.8-5.5); Red Cell Distribution Width 16.3 % (9.3-17.3)
[2018-06-01 03:44] LABS: Hematocrit 15.5 VOL% (42.0-52.0); Hemoglobin 4.7 GM/DL (14.0-18.0)
[2018-06-01 03:48] LABS: PT Patient Result 10.7 SECS
[2018-06-01 04:15] LABS: Alanine Aminotransferase 26 U/L (16-61); Albumin 3.1 G/DL (3.4-5.0); Alkaline Phosphatase 49 U/L (45-117); Aspartate Amino Transferase 43 U/L (0-37); Bilirubin,Total < 0.39 MG/DL (0.2-1.0); Blood Urea Nitrogen 89 MG/DL (7-18); Calcium 9.2 MG/DL (8.5-10.1); Glucose 193 MG/DL (74-106); Osmolality,Calculated 314.1 MOS/KG (273-304); Potassium 5.1 MMOL/L (3.5-5.1); Sodium 142 MMOL/L (136-145); Total Protein 6.1 G/DL (6.4-8.3)
[2018-06-01] MEDS ORDERED: ONDANSETRON 4 MG/2 ML VIAL IV PRN (05:02)
[2018-06-01] MEDS ORDERED: ACETAMINOPHEN 325 MG TABLET PO PRN (05:02)
[2018-06-01] MEDS ORDERED: FUROSEMIDE 20 MG/2 ML VIAL IV STA (05:02)
[2018-06-01] MEDS ORDERED: diphenhydrAMINE 50 MG/1 ML VIAL IV STA (05:02)
[2018-06-01] MEDS ORDERED: SODIUM CHLORIDE 0.9% 1,000 ML IV PRN (07:24)
[2018-06-01] MEDS ORDERED: DEXTROSE 50% 25 GM/50 ML SYRINGE IV PRN (07:51)
[2018-06-01] MEDS ORDERED: GLUCAGON 1 MG VIAL IM PRN (07:51)
[2018-06-01] MEDS ORDERED: diphenhydrAMINE CAP 25 MG CAPSULE PO ONE (08:06)
[2018-06-01] MEDS ORDERED: FUROSEMIDE 20 MG/2 ML VIAL IV ONE (08:06)
[2018-06-01] MEDS ORDERED: ACETAMINOPHEN 325 MG TABLET PO ONE (08:06)
[2018-06-01] MEDS: PANTOPRAZOLE 40 MG VIAL IV SCH ×2 (09:31→21:11)
[2018-06-01] MEDS: INSULIN LISPRO 100 UNIT/ML SUBCUT SCH ×3 (12:04→21:09)
[2018-06-01] MEDS ORDERED: FUROSEMIDE 40 MG/4 ML VIAL ONE (15:06)
[2018-06-01] MEDS: ROSUVASTATIN 10 MG TABLET PO SCH (21:08)
[2018-06-01] MEDS: ISOSORBIDE DINITRATE 10 MG TABLET PO SCH (21:09)
[2018-06-01] MEDS: INSULIN GLARGINE 100 UNIT/ML SUBCUT SCH (21:10)
[2018-06-01] MEDS: DORZOLAMIDE/TIMOLOL OPH SOLN 10 ML BOTTLE RIGHT EYE SCH (21:13)
[2018-06-01] MEDS: BUDESONIDE/FORMOTEROL 160-4.5 INHALER 6 GM INH SCH (21:13)
[2018-06-01] MEDS: LATANOPROST 0.005% OPH SOLN 2.5 ML BOTTLE RIGHT EYE SCH (21:14)
[2018-06-01 23:16] LABS: Hematocrit 26.2 VOL% (42.0-52.0)
[2018-06-01] MEDS ORDERED: hydrALAZINE 20 MG/1 ML VIAL IV PRN (23:18)
[2018-06-01 23:21] LABS: Hemoglobin 8.2 GM/DL (14.0-18.0)
[2018-06-02 04:29] LABS: Basophils % 0.4 % (0.0-0.8); Eosinophils # 0.2 10*3/uL (0.0-0.87); Eosinophils % 2.1 % (0.00-10.9); Hematocrit 26.7 VOL% (42.0-52.0); Hemoglobin 8.2 GM/DL (14.0-18.0); Immature Granulocytes % 0.6 %; Immature Granulocytes Absolute 0.06 #; Lymphocytes % 10.8 % (21.2-54.2); Mean Corpuscular HGB Conc 30.7 GM/DL (32-36); Mean Corpuscular Hemoglobin 28 PG (27-34); Mean Corpuscular Volume 90.2 FL (87-102); Mean Platelet Volume 12.6 FL (9.6-12.0); Monocytes # 0.9 10*3/uL (0.11-0.8); Monocytes % 9.3 % (1.7-12.7); NRBC # 0.03 10*3/uL; Neutrophils # 7.4 10*3/uL (1.4-7.4); Neutrophils % 76.8 % (38.7-73.9); Platelet Count 117 T/CUMM (130-400); Red Blood Count 2.96 MC/CUMM (3.8-5.5); Red Cell Distribution Width 18.2 % (9.3-17.3); White Blood Count 9.6 T/CUMM (4-12)
[2018-06-02 04:44] LABS: Albumin 3.4 G/DL (3.4-5.0); Bilirubin,Total 0.4 MG/DL (0.2-1.0); Calcium 9.2 MG/DL (8.5-10.1); Osmolality,Calculated 311.1 MOS/KG (273-304); Potassium 4.7 MMOL/L (3.5-5.1); Total Protein 6.8 G/DL (6.4-8.3)
[2018-06-02] MEDS: INSULIN LISPRO 100 UNIT/ML SUBCUT SCH ×4 (08:26→21:58)
[2018-06-02] MEDS: PANTOPRAZOLE 40 MG VIAL IV SCH ×2 (08:43→21:57)
[2018-06-02] MEDS ORDERED: PIOGLITAZONE 15 MG TABLET PO SCH (09:00)
[2018-06-02] MEDS ORDERED: CARVEDILOL 3.125 MG TABLET PO SCH (10:00)
[2018-06-02] MEDS ORDERED: METOPROLOL SUCCINATE XL 25 MG TABLET PO SCH (10:00)
[2018-06-02] MEDS ORDERED: PROPOFOL 200 MG/20 ML VIAL IV ONE (10:20)
[2018-06-02] MEDS ORDERED: LIDOCAINE 100 MG/5 ML SYRINGE ONE (10:20)
[2018-06-02] MEDS ORDERED: ETOMIDATE 20 MG/10 ML VIAL IV ONE (10:20)
[2018-06-02 10:33] LABS: CKMB % 3.4 %
[2018-06-02 10:36] LABS: Troponin I 24.1 NG/ML (0.00-0.045)
[2018-06-02] MEDS: ISOSORBIDE DINITRATE 10 MG TABLET PO SCH ×2 (11:28→21:58)
[2018-06-02] MEDS: BUDESONIDE/FORMOTEROL 160-4.5 INHALER 6 GM INH SCH ×2 (11:29→21:58)
[2018-06-02] MEDS ORDERED: BISACODYL 5 MG TABLET PO ONE (12:00)
[2018-06-02] MEDS: NEBIVOLOL 5 MG TABLET PO SCH (13:46)
[2018-06-02 14:21] LABS: Troponin I 16.8 NG/ML (0.00-0.045)
[2018-06-02] MEDS: DORZOLAMIDE/TIMOLOL OPH SOLN 10 ML BOTTLE RIGHT EYE SCH ×2 (15:32→21:58)
[2018-06-02 16:49] LABS: CKMB % 2.8 %
[2018-06-02 16:51] LABS: Troponin I 17.2 NG/ML (0.00-0.045)
[2018-06-02] MEDS ORDERED: POLYETHYLENE GLYCOL POWDER 255 GM BOTTLE PO ONE (18:00)
[2018-06-02] MEDS: INSULIN GLARGINE 100 UNIT/ML SUBCUT SCH (21:57)
[2018-06-02] MEDS: ROSUVASTATIN 10 MG TABLET PO SCH (21:58)
[2018-06-02] MEDS: LATANOPROST 0.005% OPH SOLN 2.5 ML BOTTLE RIGHT EYE SCH (21:59)
[2018-06-03 03:59] LABS: Basophils % 0.3 % (0.0-0.8); Eosinophils # 0.2 10*3/uL (0.0-0.87); Eosinophils % 2.3 % (0.00-10.9); Hematocrit 26.8 VOL% (42.0-52.0); Immature Granulocytes % 0.4 %; Immature Granulocytes Absolute 0.03 #; Lymphocytes # 0.6 10*3/uL (1.4-4.0); Lymphocytes % 8.4 % (21.2-54.2); Mean Corpuscular HGB Conc 29.9 GM/DL (32-36); Mean Corpuscular Hemoglobin 28 PG (27-34); Mean Corpuscular Volume 94.7 FL (87-102); Mean Platelet Volume 12.3 FL (9.6-12.0); Monocytes # 0.7 10*3/uL (0.11-0.8); Neutrophils # 6.1 10*3/uL (1.4-7.4); Neutrophils % 79.6 % (38.7-73.9); Platelet Count 110 T/CUMM (130-400); Red Blood Count 2.83 MC/CUMM (3.8-5.5); Red Cell Distribution Width 18.4 % (9.3-17.3); White Blood Count 7.7 T/CUMM (4-12)
[2018-06-03 04:05] LABS: PT Patient Result 10.7 SECS
[2018-06-03 04:10] LABS: Osmolality,Calculated 306.3 MOS/KG (273-304); Potassium 4.7 MMOL/L (3.5-5.1)
[2018-06-03 04:23] LABS: Albumin 3.4 G/DL (3.4-5.0); Bilirubin,Direct 0.1 MG/DL (0.0-0.20); Bilirubin,Indirect 0.3 MG/DL (0.0-1.0); Bilirubin,Total 0.4 MG/DL (0.2-1.0); Total Protein 6.4 G/DL (6.4-8.3)
[2018-06-03] MEDS: INSULIN LISPRO 100 UNIT/ML SUBCUT SCH ×4 (07:25→21:28)
[2018-06-03] MEDS: BUDESONIDE/FORMOTEROL 160-4.5 INHALER 6 GM INH SCH ×2 (08:07→21:26)
[2018-06-03] MEDS: DORZOLAMIDE/TIMOLOL OPH SOLN 10 ML BOTTLE RIGHT EYE SCH ×2 (08:07→21:25)
[2018-06-03] MEDS: PANTOPRAZOLE 40 MG VIAL IV SCH ×2 (08:07→21:23)
[2018-06-03] MEDS ORDERED: PROPOFOL 200 MG/20 ML VIAL IV ONE (09:00)
[2018-06-03] MEDS ORDERED: LIDOCAINE 2% 5 ML VIAL ONE (09:00)
[2018-06-03] MEDS: NEBIVOLOL 5 MG TABLET PO SCH (13:02)
[2018-06-03] MEDS: ISOSORBIDE DINITRATE 10 MG TABLET PO SCH (16:12)
[2018-06-03] MEDS: INSULIN GLARGINE 100 UNIT/ML SUBCUT SCH (21:25)
[2018-06-03] MEDS: LATANOPROST 0.005% OPH SOLN 2.5 ML BOTTLE RIGHT EYE SCH (21:26)
[2018-06-03] MEDS: ROSUVASTATIN 10 MG TABLET PO SCH (21:26)
[2018-06-03] MEDS: ISOSORBIDE DINITRATE 20 MG TABLET PO SCH (21:27)
[2018-06-04 05:06] LABS: Basophils % 0.2 % (0.0-0.8); Eosinophils # 0.3 10*3/uL (0.0-0.87); Eosinophils % 4.7 % (0.00-10.9); Hematocrit 24.9 VOL% (42.0-52.0); Hemoglobin 7.5 GM/DL (14.0-18.0); Immature Granulocytes % 0.5 %; Immature Granulocytes Absolute 0.03 #; Lymphocytes # 0.6 10*3/uL (1.4-4.0); Lymphocytes % 9.3 % (21.2-54.2); Mean Corpuscular HGB Conc 30.1 GM/DL (32-36); Mean Corpuscular Hemoglobin 28 PG (27-34); Mean Corpuscular Volume 94.3 FL (87-102); Mean Platelet Volume 12.2 FL (9.6-12.0); Monocytes # 0.7 10*3/uL (0.11-0.8); Monocytes % 11.4 % (1.7-12.7); Neutrophils # 4.6 10*3/uL (1.4-7.4); Neutrophils % 73.9 % (38.7-73.9); Platelet Count 108 T/CUMM (130-400); Red Blood Count 2.64 MC/CUMM (3.8-5.5); Red Cell Distribution Width 18.6 % (9.3-17.3); White Blood Count 6.2 T/CUMM (4-12)
[2018-06-04 05:35] LABS: Calcium 8.5 MG/DL (8.5-10.1); Osmolality,Calculated 305.3 MOS/KG (273-304); Potassium 4.5 MMOL/L (3.5-5.1)
[2018-06-04] MEDS: INSULIN LISPRO 100 UNIT/ML SUBCUT SCH ×4 (07:57→20:18)
[2018-06-04] MEDS ORDERED: NEBIVOLOL 5 MG TABLET PO SCH (09:00)
[2018-06-04] MEDS: ISOSORBIDE DINITRATE 20 MG TABLET PO SCH ×3 (09:05→20:18)
[2018-06-04] MEDS: PANTOPRAZOLE 40 MG VIAL IV SCH ×2 (09:05→20:19)
[2018-06-04] MEDS: BUDESONIDE/FORMOTEROL 160-4.5 INHALER 6 GM INH SCH ×2 (09:08→20:19)
[2018-06-04] MEDS: DORZOLAMIDE/TIMOLOL OPH SOLN 10 ML BOTTLE RIGHT EYE SCH ×2 (09:08→20:18)
[2018-06-04] MEDS ORDERED: SODIUM CHLORIDE 0.9% 1,000 ML IV PRN (18:14)
[2018-06-04 19:03] LABS: % Iron Saturation 9.8 % (18-50)
[2018-06-04] MEDS: ROSUVASTATIN 10 MG TABLET PO SCH (20:18)
[2018-06-04] MEDS: MAGNESIUM HYDROXIDE SUSP 30 ML UDCUP PO SCH (20:19)
[2018-06-04] MEDS: LATANOPROST 0.005% OPH SOLN 2.5 ML BOTTLE RIGHT EYE SCH (20:19)
[2018-06-04] MEDS: BENZONATATE 100 MG CAPSULE PO PRN (20:19)
[2018-06-04] MEDS: INSULIN GLARGINE 100 UNIT/ML SUBCUT SCH (20:19)
[2018-06-05 04:55] LABS: Basophils % 0.3 % (0.0-0.8); Eosinophils # 0.3 10*3/uL (0.0-0.87); Hematocrit 29.2 VOL% (42.0-52.0); Immature Granulocytes % 0.5 %; Immature Granulocytes Absolute 0.03 #; Lymphocytes # 0.5 10*3/uL (1.4-4.0); Lymphocytes % 8.6 % (21.2-54.2); Mean Corpuscular HGB Conc 30.8 GM/DL (32-36); Mean Corpuscular Hemoglobin 29 PG (27-34); Mean Platelet Volume 12.4 FL (9.6-12.0); Monocytes # 0.7 10*3/uL (0.11-0.8); Monocytes % 11.5 % (1.7-12.7); Neutrophils # 4.7 10*3/uL (1.4-7.4); Neutrophils % 75.1 % (38.7-73.9); Platelet Count 115 T/CUMM (130-400); Red Blood Count 3.14 MC/CUMM (3.8-5.5); Red Cell Distribution Width 17.6 % (9.3-17.3); White Blood Count 6.3 T/CUMM (4-12)
[2018-06-05 05:17] LABS: Calcium 8.3 MG/DL (8.5-10.1); Osmolality,Calculated 300.3 MOS/KG (273-304); Potassium 4.4 MMOL/L (3.5-5.1)
[2018-06-05] MEDS: BENZONATATE 100 MG CAPSULE PO PRN ×3 (06:56→20:02)
[2018-06-05] MEDS: INSULIN LISPRO 100 UNIT/ML SUBCUT SCH ×4 (08:30→21:42)
[2018-06-05] MEDS: PANTOPRAZOLE 40 MG VIAL IV SCH ×2 (08:50→21:42)
[2018-06-05] MEDS: MAGNESIUM HYDROXIDE SUSP 30 ML UDCUP PO SCH ×3 (08:52→21:42)
[2018-06-05] MEDS: ISOSORBIDE DINITRATE 20 MG TABLET PO SCH ×3 (08:52→21:42)
[2018-06-05] MEDS: BUDESONIDE/FORMOTEROL 160-4.5 INHALER 6 GM INH SCH ×2 (08:52→21:42)
[2018-06-05] MEDS: DORZOLAMIDE/TIMOLOL OPH SOLN 10 ML BOTTLE RIGHT EYE SCH ×2 (08:52→21:42)
[2018-06-05] MEDS ORDERED: FUROSEMIDE 40 MG/4 ML VIAL IM ONE (17:54)
[2018-06-05] MEDS ORDERED: FUROSEMIDE 40 MG/4 ML VIAL IV ONE (18:12)
[2018-06-05] MEDS: INSULIN GLARGINE 100 UNIT/ML SUBCUT SCH (21:14)
[2018-06-05] MEDS: LATANOPROST 0.005% OPH SOLN 2.5 ML BOTTLE RIGHT EYE SCH (21:42)
[2018-06-05] MEDS: ROSUVASTATIN 10 MG TABLET PO SCH (21:42)
[2018-06-05] MEDS: guaiFENesin 200 MG/10 ML UDCUP PO PRN (22:16)
[2018-06-06] MEDS: BENZONATATE 100 MG CAPSULE PO PRN ×4 (01:25→21:41)
[2018-06-06] MEDS: guaiFENesin 200 MG/10 ML UDCUP PO PRN ×4 (01:25→21:41)
[2018-06-06 05:20] LABS: Basophils % 0.3 % (0.0-0.8); Eosinophils # 0.3 10*3/uL (0.0-0.87); Eosinophils % 3.4 % (0.00-10.9); Hematocrit 33.3 VOL% (42.0-52.0); Hemoglobin 10.3 GM/DL (14.0-18.0); Immature Granulocytes % 0.4 %; Immature Granulocytes Absolute 0.03 #; Lymphocytes # 0.5 10*3/uL (1.4-4.0); Lymphocytes % 6.8 % (21.2-54.2); Mean Corpuscular HGB Conc 30.9 GM/DL (32-36); Mean Corpuscular Hemoglobin 28 PG (27-34); Mean Corpuscular Volume 90.2 FL (87-102); Mean Platelet Volume 12.5 FL (9.6-12.0); Monocytes # 0.8 10*3/uL (0.11-0.8); Monocytes % 10.6 % (1.7-12.7); Neutrophils # 5.9 10*3/uL (1.4-7.4); Neutrophils % 78.5 % (38.7-73.9); Platelet Count 148 T/CUMM (130-400); Red Blood Count 3.69 MC/CUMM (3.8-5.5); Red Cell Distribution Width 17.6 % (9.3-17.3); White Blood Count 7.5 T/CUMM (4-12)
[2018-06-06 05:39] LABS: Calcium 8.8 MG/DL (8.5-10.1); Osmolality,Calculated 299.3 MOS/KG (273-304); Potassium 4.2 MMOL/L (3.5-5.1)
[2018-06-06 05:45] LABS: Albumin 3.3 G/DL (3.4-5.0); Bilirubin,Direct 0.14 MG/DL (0.0-0.20); Bilirubin,Indirect 0.5 MG/DL (0.0-1.0); Bilirubin,Total 0.6 MG/DL (0.2-1.0); Total Protein 6.2 G/DL (6.4-8.3)
[2018-06-06] MEDS: INSULIN LISPRO 100 UNIT/ML SUBCUT SCH ×4 (07:55→21:48)
[2018-06-06] MEDS ORDERED: CYANOCOBALAMIN 1000 MCG/1 ML VIAL IM ONE (09:00)
[2018-06-06] MEDS: MAGNESIUM HYDROXIDE SUSP 30 ML UDCUP PO SCH ×3 (09:13→21:23)
[2018-06-06] MEDS: ISOSORBIDE DINITRATE 20 MG TABLET PO SCH ×3 (09:13→21:23)
[2018-06-06] MEDS: PANTOPRAZOLE 40 MG VIAL IV SCH ×2 (09:14→21:22)
[2018-06-06] MEDS: FUROSEMIDE 40 MG/4 ML VIAL IV SCH (09:15)
[2018-06-06] MEDS: DORZOLAMIDE/TIMOLOL OPH SOLN 10 ML BOTTLE RIGHT EYE SCH ×2 (10:08→21:21)
[2018-06-06] MEDS: BUDESONIDE/FORMOTEROL 160-4.5 INHALER 6 GM INH SCH ×2 (10:08→21:48)
[2018-06-06] MEDS: LATANOPROST 0.005% OPH SOLN 2.5 ML BOTTLE RIGHT EYE SCH (21:22)
[2018-06-06] MEDS: ROSUVASTATIN 10 MG TABLET PO SCH (21:24)
[2018-06-06] MEDS: INSULIN GLARGINE 100 UNIT/ML SUBCUT SCH (21:48)
[2018-06-07 06:08] LABS: Basophils % 0.5 % (0.0-0.8); Eosinophils # 0.3 10*3/uL (0.0-0.87); Eosinophils % 4.2 % (0.00-10.9); Hematocrit 29.7 VOL% (42.0-52.0); Hemoglobin 9.2 GM/DL (14.0-18.0); Immature Granulocytes % 0.3 %; Immature Granulocytes Absolute 0.02 #; Lymphocytes # 0.5 10*3/uL (1.4-4.0); Lymphocytes % 7.4 % (21.2-54.2); Mean Corpuscular Hemoglobin 28 PG (27-34); Mean Corpuscular Volume 90.3 FL (87-102); Mean Platelet Volume 12.6 FL (9.6-12.0); Monocytes # 0.7 10*3/uL (0.11-0.8); Monocytes % 11.3 % (1.7-12.7); Neutrophils # 4.7 10*3/uL (1.4-7.4); Neutrophils % 76.3 % (38.7-73.9); Platelet Count 141 T/CUMM (130-400); Red Blood Count 3.29 MC/CUMM (3.8-5.5); Red Cell Distribution Width 17.2 % (9.3-17.3); White Blood Count 6.2 T/CUMM (4-12)
[2018-06-07 06:23] LABS: Calcium 8.4 MG/DL (8.5-10.1); Osmolality,Calculated 300.3 MOS/KG (273-304); Potassium 4.3 MMOL/L (3.5-5.1)
[2018-06-07] MEDS: INSULIN LISPRO 100 UNIT/ML SUBCUT SCH ×2 (08:41→12:14)
[2018-06-07] MEDS: DORZOLAMIDE/TIMOLOL OPH SOLN 10 ML BOTTLE RIGHT EYE SCH (09:05)
[2018-06-07] MEDS: BUDESONIDE/FORMOTEROL 160-4.5 INHALER 6 GM INH SCH (09:05)
[2018-06-07] MEDS: BENZONATATE 100 MG CAPSULE PO PRN (09:06)
[2018-06-07] MEDS: ISOSORBIDE DINITRATE 20 MG TABLET PO SCH (09:06)
[2018-06-07] MEDS: guaiFENesin 200 MG/10 ML UDCUP PO PRN (09:06)
[2018-06-07] MEDS: MAGNESIUM HYDROXIDE SUSP 30 ML UDCUP PO SCH (09:07)
[2018-06-07] MEDS: PANTOPRAZOLE 40 MG VIAL IV SCH (09:07)
[2018-06-07] MEDS: FUROSEMIDE 40 MG/4 ML VIAL IV SCH (09:07)
[2018-06-07 12:17] VITALS: BP 136/55
== END 2018-06-07 14:42 | disposition home or self-care (01) | DRG 280 ==
LOC: N.ED 01:52 → N.EDINP 05:01 → N.ICU 06:54 → N.3E 06-06 01:33
PROVIDERS: ADMIT Internal Medicine; ATTEND Internal Medicine

== ENCOUNTER 2018-06-12 20:31 | Inpatient (IN) ==
[2018-06-12] MEDS ORDERED: ALBUTEROL/IPRATROPIUM 3 ML NEB RESP TX STA (20:54)
[2018-06-12 21:08] LABS: Basophils % 0.3 % (0.0-0.8); Eosinophils # 0.1 10*3/uL (0.0-0.87); Eosinophils % 0.7 % (0.00-10.9); Hematocrit 39.3 VOL% (42.0-52.0); Hemoglobin 12.1 GM/DL (14.0-18.0); Immature Granulocytes % 0.5 %; Immature Granulocytes Absolute 0.05 #; Lymphocytes # 0.4 10*3/uL (1.4-4.0); Lymphocytes % 4.2 % (21.2-54.2); Mean Corpuscular HGB Conc 30.8 GM/DL (32-36); Mean Corpuscular Hemoglobin 28 PG (27-34); Mean Platelet Volume 11.2 FL (9.6-12.0); Monocytes # 0.6 10*3/uL (0.11-0.8); Monocytes % 6.3 % (1.7-12.7); Neutrophils # 8.7 10*3/uL (1.4-7.4); Platelet Count 245 T/CUMM (130-400); Red Blood Count 4.27 MC/CUMM (3.8-5.5); Red Cell Distribution Width 17.1 % (9.3-17.3); White Blood Count 9.9 T/CUMM (4-12)
[2018-06-12 21:22] LABS: INR 0.9; PT Patient Result 9.9 SECS
[2018-06-12 21:28] LABS: Albumin 3.8 G/DL (3.4-5.0); Bilirubin,Total 0.5 MG/DL (0.2-1.0); Calcium 9.3 MG/DL (8.5-10.1); Osmolality,Calculated 288.4 MOS/KG (273-304); Potassium 5.2 MMOL/L (3.5-5.1); Total Protein 8.4 G/DL (6.4-8.3)
[2018-06-12 21:32] LABS: ABG Base Excess 0.7 MMOL/L (-2.5-2.5); ABG HCO3 24.9 MMOL/L (20-26); ABG Oxygen Saturation 90.9 % (95-100); ABG PCO2 38.4 MM HG (35-48); ABG PH 7.421 (7.35-7.45); ABG PO2 57.6 MM HG (80-95); ABG TCO2 22.4 MMOL/L (23-27); Allen Test Positive
[2018-06-12 21:34] LABS: Eosinophils 1 % (0-10); Lymphocytes 5 % (20-55); Segmented Neutrophils 92 % (50-85); Total Cells Counted 100
[2018-06-12 21:35] LABS: Platelet Estimate Normal
[2018-06-12] MEDS ORDERED: LEVOFLOXACIN INJ 500 MG in PREMIX 1 EACH IV STA (22:34)
[2018-06-12] MEDS ORDERED: ACETAMINOPHEN 325 MG TABLET PO PRN (23:16)
[2018-06-12] MEDS ORDERED: ONDANSETRON 4 MG/2 ML VIAL IV PRN (23:16)
[2018-06-13] MEDS ORDERED: ALBUTEROL/IPRATROPIUM 3 ML NEB RESP TX SCH (01:00)
[2018-06-13 02:10] LABS: Basophils % 0.2 % (0.0-0.8); Eosinophils % 0.4 % (0.00-10.9); Hematocrit 35.3 VOL% (42.0-52.0); Hemoglobin 10.9 GM/DL (14.0-18.0); Immature Granulocytes % 0.3 %; Immature Granulocytes Absolute 0.03 #; Lymphocytes # 0.5 10*3/uL (1.4-4.0); Lymphocytes % 4.2 % (21.2-54.2); Mean Corpuscular HGB Conc 30.9 GM/DL (32-36); Mean Corpuscular Hemoglobin 29 PG (27-34); Mean Corpuscular Volume 92.2 FL (87-102); Mean Platelet Volume 10.9 FL (9.6-12.0); Monocytes # 0.8 10*3/uL (0.11-0.8); Monocytes % 7.5 % (1.7-12.7); Neutrophils # 9.5 10*3/uL (1.4-7.4); Neutrophils % 87.4 % (38.7-73.9); Platelet Count 242 T/CUMM (130-400); Red Blood Count 3.83 MC/CUMM (3.8-5.5); White Blood Count 10.9 T/CUMM (4-12)
[2018-06-13 02:36] LABS: Albumin 3.4 G/DL (3.4-5.0); Bilirubin,Total 0.6 MG/DL (0.2-1.0); Calcium 8.9 MG/DL (8.5-10.1); Osmolality,Calculated 290.3 MOS/KG (273-304)
[2018-06-13 02:39] LABS: Lymphocytes 4 % (20-55); Segmented Neutrophils 90 % (50-85); Total Cells Counted 100
[2018-06-13 02:40] LABS: Ovalocytes 1+; Platelet Estimate Normal
[2018-06-13] MEDS: AZITHROMYCIN INJ 500 MG in SODIUM CHLORIDE 0.9% 250 ML IV SCH (03:21)
[2018-06-13] MEDS ORDERED: ALBUTEROL/IPRATROPIUM 3 ML NEB RESP TX ONE (04:13)
[2018-06-13] MEDS: ALBUTEROL 1.25 MG/3 ML NEB RESP TX SCH ×7 (07:00→21:47)
[2018-06-13] MEDS ORDERED: guaiFENesin 200 MG/10 ML UDCUP PO PRN (07:08)
[2018-06-13] MEDS ORDERED: ACETAMINOPHEN 325 MG TABLET PO PRN (07:08)
[2018-06-13] MEDS ORDERED: GLUCAGON 1 MG VIAL IM PRN (07:19)
[2018-06-13] MEDS ORDERED: DEXTROSE 50% 25 GM/50 ML SYRINGE IV PRN ×2 (07:19→10:02)
[2018-06-13] MEDS ORDERED: FUROSEMIDE 40 MG/4 ML VIAL IV ONE ×2 (07:25→10:19)
[2018-06-13] MEDS: ALBUTEROL/IPRATROPIUM 3 ML NEB RESP TX SCH ×4 (07:33→19:19)
[2018-06-13] MEDS: INSULIN REGULAR 100 UNIT/ML SUBCUT SCH ×4 (07:57→22:59)
[2018-06-13] MEDS: BUDESONIDE 0.25 MG/2 ML NEB RESP TX SCH ×2 (08:43→19:19)
[2018-06-13] MEDS ORDERED: PANTOPRAZOLE 40 MG TABLET PO SCH (09:00)
[2018-06-13] MEDS: INSULIN GLARGINE 100 UNIT/ML SUBCUT SCH (10:09)
[2018-06-13] MEDS: ISOSORBIDE DINITRATE 20 MG TABLET PO SCH ×3 (10:10→22:58)
[2018-06-13] MEDS: FERROUS SULFATE 325 MG TABLET PO SCH (10:10)
[2018-06-13] MEDS: MAGNESIUM HYDROXIDE SUSP 30 ML UDCUP PO SCH ×3 (10:10→23:04)
[2018-06-13] MEDS: ASPIRIN EC 81 MG TABLET PO SCH (10:10)
[2018-06-13] MEDS: methylPREDNISolone SOD SUC 40 MG/1 ML VIAL IV SCH ×2 (10:11→17:03)
[2018-06-13] MEDS: cefTRIAXone 1,000 MG in SYRINGE 1 EACH IV SCH (17:05)
[2018-06-13] MEDS: ROSUVASTATIN 10 MG TABLET PO SCH (22:58)
[2018-06-13] MEDS: LATANOPROST 0.005% OPH SOLN 2.5 ML BOTTLE RIGHT EYE SCH (22:59)
[2018-06-13] MEDS ORDERED: LEVOFLOXACIN INJ 250 MG in PREMIX 1 EACH IV SCH (23:45)
[2018-06-14] MEDS: ALBUTEROL/IPRATROPIUM 3 ML NEB RESP TX SCH ×7 (00:03→22:36)
[2018-06-14] MEDS: ALBUTEROL 1.25 MG/3 ML NEB RESP TX SCH ×6 (00:06→10:32)
[2018-06-14] MEDS: methylPREDNISolone SOD SUC 40 MG/1 ML VIAL IV SCH ×3 (00:36→16:59)
[2018-06-14] MEDS: AZITHROMYCIN INJ 500 MG in SODIUM CHLORIDE 0.9% 250 ML IV SCH (04:03)
[2018-06-14 05:26] LABS: Hematocrit 29.5 VOL% (42.0-52.0); Immature Granulocytes % 0.7 %; Immature Granulocytes Absolute 0.06 #; Lymphocytes # 0.3 10*3/uL (1.4-4.0); Lymphocytes % 3.6 % (21.2-54.2); Mean Corpuscular HGB Conc 30.5 GM/DL (32-36); Mean Corpuscular Hemoglobin 28 PG (27-34); Mean Corpuscular Volume 92.8 FL (87-102); Mean Platelet Volume 11.7 FL (9.6-12.0); Monocytes # 0.3 10*3/uL (0.11-0.8); Monocytes % 3.6 % (1.7-12.7); Neutrophils # 7.6 10*3/uL (1.4-7.4); Neutrophils % 92.1 % (38.7-73.9); Platelet Count 208 T/CUMM (130-400); Red Blood Count 3.18 MC/CUMM (3.8-5.5); Red Cell Distribution Width 16.8 % (9.3-17.3); White Blood Count 8.2 T/CUMM (4-12)
[2018-06-14 05:37] LABS: Calcium 8.7 MG/DL (8.5-10.1); Osmolality,Calculated 294.5 MOS/KG (273-304); Potassium 5.3 MMOL/L (3.5-5.1)
[2018-06-14 06:08] LABS: Band Neutrophils 1 % (0-10); Lymphocytes 7 % (20-55); Segmented Neutrophils 88 % (50-85); Total Cells Counted 100
[2018-06-14 06:09] LABS: Hypochromasia 1+; Microcytosis 1+; Platelet Estimate Normal
[2018-06-14] MEDS: BUDESONIDE 0.25 MG/2 ML NEB RESP TX SCH ×2 (07:17→19:40)
[2018-06-14] MEDS: MAGNESIUM HYDROXIDE SUSP 30 ML UDCUP PO SCH ×3 (08:54→21:39)
[2018-06-14] MEDS: FERROUS SULFATE 325 MG TABLET PO SCH (08:54)
[2018-06-14] MEDS: ASPIRIN EC 81 MG TABLET PO SCH (08:54)
[2018-06-14] MEDS: ISOSORBIDE DINITRATE 20 MG TABLET PO SCH ×3 (08:54→21:40)
[2018-06-14] MEDS: INSULIN REGULAR 100 UNIT/ML SUBCUT SCH ×4 (08:55→21:40)
[2018-06-14] MEDS: INSULIN GLARGINE 100 UNIT/ML SUBCUT SCH (08:55)
[2018-06-14] MEDS ORDERED: FUROSEMIDE 40 MG/4 ML VIAL IV SCH (09:00)
[2018-06-14] MEDS: cefTRIAXone 1,000 MG in SYRINGE 1 EACH IV SCH (14:17)
[2018-06-14] MEDS: ROSUVASTATIN 10 MG TABLET PO SCH (21:39)
[2018-06-14] MEDS: LATANOPROST 0.005% OPH SOLN 2.5 ML BOTTLE RIGHT EYE SCH (21:40)
[2018-06-14] MEDS: BENZONATATE 100 MG CAPSULE PO SCH (21:43)
[2018-06-15] MEDS: methylPREDNISolone SOD SUC 40 MG/1 ML VIAL IV SCH ×3 (00:55→16:06)
[2018-06-15] MEDS: ALBUTEROL/IPRATROPIUM 3 ML NEB RESP TX SCH ×6 (02:31→23:06)
[2018-06-15 03:00] LABS: Apearance,Urine CLOUDY (Clear); Bilirubin,Urine Negative (Negative); Blood, Urine Negative (Negative); Glucose,Urine (UA) 50 mg/dL (Negative); Hyaline Casts,Urine 26 /LPF (0-3); Ketones,Urine Negative (Negative); Mucus,Urine Occasional /LPF (Occasional); Nitrite,Urine Negative (Negative); Protein,Urine >=500 MG/DL; RBC,Urine 1 /HPF (0-4); Squamous Epithelial Cell,Urine Occasional /HPF (0-10); Urine Color Yellow (Yellow); Urine Specific Gravity 1.014 (1.001-1.035); Urine Urobilinogen < 2.0 EU/DL (0.2-1.0); WBC,Urine 2 /HPF (0-6)
[2018-06-15] MEDS: AZITHROMYCIN INJ 500 MG in SODIUM CHLORIDE 0.9% 250 ML IV SCH (04:39)
[2018-06-15 04:51] LABS: Basophils % 0.1 % (0.0-0.8); Hematocrit 29.2 VOL% (42.0-52.0); Hemoglobin 8.7 GM/DL (14.0-18.0); Immature Granulocytes % 0.5 %; Immature Granulocytes Absolute 0.06 #; Lymphocytes # 0.3 10*3/uL (1.4-4.0); Lymphocytes % 2.7 % (21.2-54.2); Mean Corpuscular HGB Conc 29.8 GM/DL (32-36); Mean Corpuscular Hemoglobin 28 PG (27-34); Mean Corpuscular Volume 93.9 FL (87-102); Mean Platelet Volume 11.6 FL (9.6-12.0); Monocytes # 0.6 10*3/uL (0.11-0.8); Monocytes % 5.4 % (1.7-12.7); Neutrophils # 10.5 10*3/uL (1.4-7.4); Neutrophils % 91.3 % (38.7-73.9); Platelet Count 202 T/CUMM (130-400); Red Blood Count 3.11 MC/CUMM (3.8-5.5); Red Cell Distribution Width 16.6 % (9.3-17.3); White Blood Count 11.5 T/CUMM (4-12)
[2018-06-15 05:07] LABS: Calcium 8.4 MG/DL (8.5-10.1); Osmolality,Calculated 297.7 MOS/KG (273-304); Potassium 5.8 MMOL/L (3.5-5.1)
[2018-06-15 06:03] LABS: Lymphocytes 4 % (20-55); Segmented Neutrophils 93 % (50-85); Total Cells Counted 100
[2018-06-15 06:04] LABS: Hypochromasia 1+; Microcytosis 1+; Ovalocytes Slight
[2018-06-15 06:05] LABS: Platelet Estimate Normal
[2018-06-15] MEDS: BUDESONIDE 0.25 MG/2 ML NEB RESP TX SCH ×2 (07:00→19:39)
[2018-06-15] MEDS: FUROSEMIDE 40 MG/4 ML VIAL IV SCH (09:11)
[2018-06-15] MEDS: FERROUS SULFATE 325 MG TABLET PO SCH (09:11)
[2018-06-15] MEDS: ISOSORBIDE DINITRATE 20 MG TABLET PO SCH ×3 (09:11→21:35)
[2018-06-15] MEDS: BENZONATATE 100 MG CAPSULE PO SCH ×2 (09:11→21:35)
[2018-06-15] MEDS: ASPIRIN EC 81 MG TABLET PO SCH (09:11)
[2018-06-15] MEDS: MAGNESIUM HYDROXIDE SUSP 30 ML UDCUP PO SCH ×3 (09:11→21:36)
[2018-06-15] MEDS: INSULIN GLARGINE 100 UNIT/ML SUBCUT SCH (09:12)
[2018-06-15] MEDS: INSULIN REGULAR 100 UNIT/ML SUBCUT SCH ×4 (09:12→21:35)
[2018-06-15] MEDS: cefTRIAXone 1,000 MG in SYRINGE 1 EACH IV SCH (14:40)
[2018-06-15] MEDS: SODIUM CHLORIDE 0.45% 1,000 ML IV SCH (14:40)
[2018-06-15] MEDS: ROSUVASTATIN 10 MG TABLET PO SCH (21:34)
[2018-06-15] MEDS: LATANOPROST 0.005% OPH SOLN 2.5 ML BOTTLE RIGHT EYE SCH (21:36)
[2018-06-16] MEDS: methylPREDNISolone SOD SUC 40 MG/1 ML VIAL IV SCH ×4 (00:51→22:21)
[2018-06-16] MEDS: ALBUTEROL/IPRATROPIUM 3 ML NEB RESP TX SCH ×5 (02:47→19:27)
[2018-06-16] MEDS: SODIUM CHLORIDE 0.45% 1,000 ML IV SCH ×2 (04:13→18:17)
[2018-06-16] MEDS: AZITHROMYCIN INJ 500 MG in SODIUM CHLORIDE 0.9% 250 ML IV SCH (04:14)
[2018-06-16 05:26] LABS: Hematocrit 30.2 VOL% (42.0-52.0); Hemoglobin 9.1 GM/DL (14.0-18.0); Immature Granulocytes % 0.5 %; Immature Granulocytes Absolute 0.06 #; Lymphocytes # 0.2 10*3/uL (1.4-4.0); Lymphocytes % 1.9 % (21.2-54.2); Mean Corpuscular HGB Conc 30.1 GM/DL (32-36); Mean Corpuscular Hemoglobin 28 PG (27-34); Mean Corpuscular Volume 93.5 FL (87-102); Mean Platelet Volume 11.8 FL (9.6-12.0); Monocytes # 0.5 10*3/uL (0.11-0.8); Monocytes % 4.4 % (1.7-12.7); Neutrophils # 10.7 10*3/uL (1.4-7.4); Neutrophils % 93.2 % (38.7-73.9); Platelet Count 217 T/CUMM (130-400); Red Blood Count 3.23 MC/CUMM (3.8-5.5); Red Cell Distribution Width 16.1 % (9.3-17.3); White Blood Count 11.5 T/CUMM (4-12)
[2018-06-16 05:46] LABS: Calcium 8.5 MG/DL (8.5-10.1)
[2018-06-16 05:47] LABS: Osmolality,Calculated 293.1 MOS/KG (273-304); Potassium 5.7 MMOL/L (3.5-5.1)
[2018-06-16 06:15] LABS: Hypochromasia 1+; Lymphocytes 5 % (20-55); Ovalocytes Slight; Platelet Estimate Adequate; Segmented Neutrophils 91 % (50-85); Total Cells Counted 100
[2018-06-16 06:16] LABS: Microcytosis 1+
[2018-06-16] MEDS: BUDESONIDE 0.25 MG/2 ML NEB RESP TX SCH ×2 (07:14→19:27)
[2018-06-16] MEDS: INSULIN GLARGINE 100 UNIT/ML SUBCUT SCH (08:39)
[2018-06-16] MEDS: INSULIN REGULAR 100 UNIT/ML SUBCUT SCH ×4 (08:39→22:23)
[2018-06-16] MEDS: FUROSEMIDE 40 MG/4 ML VIAL IV SCH (08:40)
[2018-06-16] MEDS: ASPIRIN EC 81 MG TABLET PO SCH (08:41)
[2018-06-16] MEDS: FERROUS SULFATE 325 MG TABLET PO SCH (08:41)
[2018-06-16] MEDS: BENZONATATE 100 MG CAPSULE PO SCH ×2 (08:41→20:41)
[2018-06-16] MEDS: ISOSORBIDE DINITRATE 20 MG TABLET PO SCH ×3 (08:42→20:41)
[2018-06-16] MEDS: MAGNESIUM HYDROXIDE SUSP 30 ML UDCUP PO SCH ×3 (08:44→20:41)
[2018-06-16] MEDS: cefTRIAXone 1,000 MG in SYRINGE 1 EACH IV SCH (14:22)
[2018-06-16] MEDS ORDERED: SODIUM POLYSTYRENE SULFATE 15 GM/60 ML BOTTLE PO STA (19:43)
[2018-06-16] MEDS: ROSUVASTATIN 10 MG TABLET PO SCH (20:42)
[2018-06-16] MEDS: LATANOPROST 0.005% OPH SOLN 2.5 ML BOTTLE RIGHT EYE SCH (20:53)
[2018-06-17] MEDS: ALBUTEROL/IPRATROPIUM 3 ML NEB RESP TX SCH ×6 (00:04→21:22)
[2018-06-17] MEDS: AZITHROMYCIN INJ 500 MG in SODIUM CHLORIDE 0.9% 250 ML IV SCH (03:43)
[2018-06-17 04:54] LABS: Hemoglobin 9.2 GM/DL (14.0-18.0); Lymphocytes # 0.2 10*3/uL (1.4-4.0); Mean Corpuscular HGB Conc 29.7 GM/DL (32-36); Mean Corpuscular Hemoglobin 28 PG (27-34); Mean Corpuscular Volume 94.8 FL (87-102); Mean Platelet Volume 11.6 FL (9.6-12.0); Monocytes # 0.8 10*3/uL (0.11-0.8); Monocytes % 7.2 % (1.7-12.7); Neutrophils # 9.3 10*3/uL (1.4-7.4); Neutrophils % 89.8 % (38.7-73.9); Platelet Count 194 T/CUMM (130-400); Red Blood Count 3.27 MC/CUMM (3.8-5.5); Red Cell Distribution Width 15.9 % (9.3-17.3); White Blood Count 10.4 T/CUMM (4-12)
[2018-06-17] MEDS: methylPREDNISolone SOD SUC 40 MG/1 ML VIAL IV SCH ×3 (06:08→22:14)
[2018-06-17 06:16] LABS: Hypochromasia 1+; Lymphocytes 10 % (20-55); Segmented Neutrophils 85 % (50-85); Total Cells Counted 100
[2018-06-17 06:17] LABS: Platelet Estimate Adequate
[2018-06-17] MEDS: BUDESONIDE 0.25 MG/2 ML NEB RESP TX SCH ×2 (07:34→21:22)
[2018-06-17 07:50] LABS: Calcium 8.3 MG/DL (8.5-10.1); Osmolality,Calculated 296.2 MOS/KG (273-304)
[2018-06-17] MEDS: ISOSORBIDE DINITRATE 20 MG TABLET PO SCH ×3 (09:16→20:50)
[2018-06-17] MEDS: ASPIRIN EC 81 MG TABLET PO SCH (09:16)
[2018-06-17] MEDS: BENZONATATE 100 MG CAPSULE PO SCH ×2 (09:16→20:50)
[2018-06-17] MEDS: FERROUS SULFATE 325 MG TABLET PO SCH (09:17)
[2018-06-17] MEDS: INSULIN REGULAR 100 UNIT/ML SUBCUT SCH ×4 (09:19→20:54)
[2018-06-17] MEDS: INSULIN GLARGINE 100 UNIT/ML SUBCUT SCH (09:20)
[2018-06-17] MEDS: FUROSEMIDE 40 MG/4 ML VIAL IV SCH (09:22)
[2018-06-17] MEDS: MAGNESIUM HYDROXIDE SUSP 30 ML UDCUP PO SCH ×3 (09:37→21:03)
[2018-06-17] MEDS: SODIUM POLYSTYRENE SULFATE 15 GM/60 ML BOTTLE PO SCH ×2 (09:52→14:21)
[2018-06-17] MEDS: cefTRIAXone 1,000 MG in SYRINGE 1 EACH IV SCH (14:31)
[2018-06-17] MEDS ORDERED: MINOXIDIL 2.5 MG TABLET PO SCH (20:41)
[2018-06-17] MEDS: LATANOPROST 0.005% OPH SOLN 2.5 ML BOTTLE RIGHT EYE SCH (20:49)
[2018-06-17] MEDS: ROSUVASTATIN 10 MG TABLET PO SCH (20:50)
[2018-06-18] MEDS: BUDESONIDE 0.25 MG/2 ML NEB RESP TX SCH ×3 (00:16→19:04)
[2018-06-18] MEDS: ALBUTEROL/IPRATROPIUM 3 ML NEB RESP TX SCH ×7 (00:16→23:07)
[2018-06-18] MEDS: INSULIN GLARGINE 100 UNIT/ML SUBCUT SCH ×3 (03:37→20:43)
[2018-06-18] MEDS: AZITHROMYCIN INJ 500 MG in SODIUM CHLORIDE 0.9% 250 ML IV SCH (04:27)
[2018-06-18 05:13] LABS: Basophils % 0.1 % (0.0-0.8); Hematocrit 29.9 VOL% (42.0-52.0); Hemoglobin 9.1 GM/DL (14.0-18.0); Immature Granulocytes % 0.8 %; Immature Granulocytes Absolute 0.09 #; Lymphocytes # 0.3 10*3/uL (1.4-4.0); Lymphocytes % 2.2 % (21.2-54.2); Mean Corpuscular HGB Conc 30.4 GM/DL (32-36); Mean Corpuscular Hemoglobin 28 PG (27-34); Mean Corpuscular Volume 91.7 FL (87-102); Mean Platelet Volume 12.1 FL (9.6-12.0); Monocytes # 0.7 10*3/uL (0.11-0.8); Monocytes % 6.4 % (1.7-12.7); Neutrophils # 10.1 10*3/uL (1.4-7.4); Neutrophils % 90.5 % (38.7-73.9); Platelet Count 215 T/CUMM (130-400); Red Blood Count 3.26 MC/CUMM (3.8-5.5); Red Cell Distribution Width 15.9 % (9.3-17.3); White Blood Count 11.2 T/CUMM (4-12)
[2018-06-18 05:27] LABS: Calcium 8.3 MG/DL (8.5-10.1); Potassium 5.5 MMOL/L (3.5-5.1)
[2018-06-18 05:38] LABS: Lymphocytes 2 % (20-55); Platelet Estimate Normal; Segmented Neutrophils 93 % (50-85); Total Cells Counted 100
[2018-06-18] MEDS: methylPREDNISolone SOD SUC 40 MG/1 ML VIAL IV SCH ×2 (06:13→21:55)
[2018-06-18] MEDS: ASPIRIN EC 81 MG TABLET PO SCH (08:10)
[2018-06-18] MEDS: ISOSORBIDE DINITRATE 20 MG TABLET PO SCH ×3 (08:10→20:41)
[2018-06-18] MEDS: FERROUS SULFATE 325 MG TABLET PO SCH (08:11)
[2018-06-18] MEDS: BENZONATATE 100 MG CAPSULE PO SCH ×2 (08:11→20:41)
[2018-06-18] MEDS: MAGNESIUM HYDROXIDE SUSP 30 ML UDCUP PO SCH ×3 (08:12→20:46)
[2018-06-18] MEDS: MINOXIDIL 2.5 MG TABLET PO SCH (08:12)
[2018-06-18] MEDS: INSULIN REGULAR 100 UNIT/ML SUBCUT SCH ×4 (08:20→20:58)
[2018-06-18] MEDS: FUROSEMIDE 40 MG/4 ML VIAL IV SCH (08:21)
[2018-06-18] MEDS: cefTRIAXone 1,000 MG in SYRINGE 1 EACH IV SCH (09:31)
[2018-06-18] MEDS: ROSUVASTATIN 10 MG TABLET PO SCH (20:41)
[2018-06-18] MEDS: DORZOLAMIDE/TIMOLOL OPH SOLN 10 ML BOTTLE RIGHT EYE SCH (20:42)
[2018-06-18] MEDS: LATANOPROST 0.005% OPH SOLN 2.5 ML BOTTLE RIGHT EYE SCH (20:42)
[2018-06-19] MEDS: ALBUTEROL/IPRATROPIUM 3 ML NEB RESP TX SCH ×6 (03:06→23:12)
[2018-06-19] MEDS: INSULIN REGULAR 100 UNIT/ML SUBCUT SCH ×4 (07:28→21:07)
[2018-06-19] MEDS: cefTRIAXone 1,000 MG in SYRINGE 1 EACH IV SCH (08:01)
[2018-06-19] MEDS: AZITHROMYCIN INJ 500 MG in SODIUM CHLORIDE 0.9% 250 ML IV SCH (08:01)
[2018-06-19] MEDS: methylPREDNISolone SOD SUC 40 MG/1 ML VIAL IV SCH ×2 (08:02→21:06)
[2018-06-19] MEDS: FUROSEMIDE 40 MG/4 ML VIAL IV SCH (08:02)
[2018-06-19] MEDS: BUDESONIDE 0.25 MG/2 ML NEB RESP TX SCH ×2 (08:08→19:25)
[2018-06-19] MEDS: FERROUS SULFATE 325 MG TABLET PO SCH (08:27)
[2018-06-19] MEDS: INSULIN GLARGINE 100 UNIT/ML SUBCUT SCH ×2 (08:27→21:06)
[2018-06-19] MEDS: ASPIRIN EC 81 MG TABLET PO SCH (08:27)
[2018-06-19] MEDS: ISOSORBIDE DINITRATE 20 MG TABLET PO SCH ×3 (08:27→21:05)
[2018-06-19] MEDS: MINOXIDIL 2.5 MG TABLET PO SCH (08:28)
[2018-06-19] MEDS: BENZONATATE 100 MG CAPSULE PO SCH ×2 (08:28→21:06)
[2018-06-19] MEDS: MAGNESIUM HYDROXIDE SUSP 30 ML UDCUP PO SCH ×3 (08:28→21:06)
[2018-06-19] MEDS: DORZOLAMIDE/TIMOLOL OPH SOLN 10 ML BOTTLE RIGHT EYE SCH ×2 (08:41→21:07)
[2018-06-19 13:01] LABS: Lymphocytes,Pleural Fluid 11 %; Monocytes,Pleural Fluid 43 %; Neutrophils,Pleural Fluid 46 %
[2018-06-19 13:06] LABS: RBC,Pleural Fluid 269 T/CUMM
[2018-06-19] MEDS: ROSUVASTATIN 10 MG TABLET PO SCH (21:05)
[2018-06-19] MEDS: LATANOPROST 0.005% OPH SOLN 2.5 ML BOTTLE RIGHT EYE SCH (21:06)
[2018-06-20] MEDS: ALBUTEROL/IPRATROPIUM 3 ML NEB RESP TX SCH ×6 (03:19→22:51)
[2018-06-20 05:46] LABS: Calcium 8.4 MG/DL (8.5-10.1); Osmolality,Calculated 313.8 MOS/KG (273-304); Potassium 4.9 MMOL/L (3.5-5.1)
[2018-06-20] MEDS: BUDESONIDE 0.25 MG/2 ML NEB RESP TX SCH ×2 (07:05→19:17)
[2018-06-20] MEDS: AZITHROMYCIN INJ 500 MG in SODIUM CHLORIDE 0.9% 250 ML IV SCH (09:41)
[2018-06-20] MEDS: INSULIN GLARGINE 100 UNIT/ML SUBCUT SCH ×2 (09:43→20:52)
[2018-06-20] MEDS: MINOXIDIL 2.5 MG TABLET PO SCH (09:43)
[2018-06-20] MEDS: ASPIRIN EC 81 MG TABLET PO SCH (09:43)
[2018-06-20] MEDS: FERROUS SULFATE 325 MG TABLET PO SCH (09:44)
[2018-06-20] MEDS: FUROSEMIDE 40 MG/4 ML VIAL IV SCH (09:44)
[2018-06-20] MEDS: methylPREDNISolone SOD SUC 40 MG/1 ML VIAL IV SCH ×2 (09:44→22:23)
[2018-06-20] MEDS: ISOSORBIDE DINITRATE 20 MG TABLET PO SCH ×4 (09:44→20:52)
[2018-06-20] MEDS: BENZONATATE 100 MG CAPSULE PO SCH ×2 (09:44→20:52)
[2018-06-20] MEDS: MAGNESIUM HYDROXIDE SUSP 30 ML UDCUP PO SCH ×3 (09:45→20:58)
[2018-06-20] MEDS: DORZOLAMIDE/TIMOLOL OPH SOLN 10 ML BOTTLE RIGHT EYE SCH ×2 (10:17→21:02)
[2018-06-20] MEDS: cefTRIAXone 1,000 MG in SYRINGE 1 EACH IV SCH (10:39)
[2018-06-20] MEDS: INSULIN REGULAR 100 UNIT/ML SUBCUT SCH ×3 (16:49→20:57)
[2018-06-20] MEDS: ROSUVASTATIN 10 MG TABLET PO SCH (20:52)
[2018-06-20] MEDS: LATANOPROST 0.005% OPH SOLN 2.5 ML BOTTLE RIGHT EYE SCH (20:59)
[2018-06-21] MEDS: ALBUTEROL/IPRATROPIUM 3 ML NEB RESP TX SCH ×5 (02:01→19:17)
[2018-06-21 04:33] LABS: Calcium 8.3 MG/DL (8.5-10.1); Osmolality,Calculated 312.2 MOS/KG (273-304); Potassium 5.4 MMOL/L (3.5-5.1)
[2018-06-21] MEDS: BUDESONIDE 0.25 MG/2 ML NEB RESP TX SCH ×2 (07:05→19:17)
[2018-06-21] MEDS ORDERED: SODIUM POLYSTYRENE SULFATE 15 GM/60 ML BOTTLE PO ONE (09:55)
[2018-06-21] MEDS: ASPIRIN EC 81 MG TABLET PO SCH (10:26)
[2018-06-21] MEDS: BENZONATATE 100 MG CAPSULE PO SCH ×2 (10:26→21:04)
[2018-06-21] MEDS: FERROUS SULFATE 325 MG TABLET PO SCH (10:26)
[2018-06-21] MEDS: FUROSEMIDE 40 MG TABLET PO SCH (10:26)
[2018-06-21] MEDS: methylPREDNISolone SOD SUC 40 MG/1 ML VIAL IV SCH ×2 (10:27→21:14)
[2018-06-21] MEDS: INSULIN GLARGINE 100 UNIT/ML SUBCUT SCH ×2 (10:27→21:06)
[2018-06-21] MEDS: INSULIN REGULAR 100 UNIT/ML SUBCUT SCH ×4 (10:27→21:14)
[2018-06-21] MEDS: ISOSORBIDE DINITRATE 20 MG TABLET PO SCH ×3 (10:27→21:05)
[2018-06-21] MEDS: MINOXIDIL 2.5 MG TABLET PO SCH (10:27)
[2018-06-21] MEDS: DORZOLAMIDE/TIMOLOL OPH SOLN 10 ML BOTTLE RIGHT EYE SCH ×2 (10:39→21:12)
[2018-06-21] MEDS: MAGNESIUM HYDROXIDE SUSP 30 ML UDCUP PO SCH ×3 (10:39→21:15)
[2018-06-21] MEDS: ROSUVASTATIN 10 MG TABLET PO SCH (21:04)
[2018-06-21] MEDS: LATANOPROST 0.005% OPH SOLN 2.5 ML BOTTLE RIGHT EYE SCH (21:12)
[2018-06-22] MEDS: ALBUTEROL/IPRATROPIUM 3 ML NEB RESP TX SCH ×7 (00:13→23:08)
[2018-06-22 05:37] LABS: Calcium 8.5 MG/DL (8.5-10.1); Osmolality,Calculated 307.2 MOS/KG (273-304); Potassium 5.2 MMOL/L (3.5-5.1)
[2018-06-22] MEDS: BUDESONIDE 0.25 MG/2 ML NEB RESP TX SCH ×2 (07:52→20:40)
[2018-06-22] MEDS: MINOXIDIL 2.5 MG TABLET PO SCH (11:25)
[2018-06-22] MEDS: FUROSEMIDE 40 MG TABLET PO SCH (11:25)
[2018-06-22] MEDS: BENZONATATE 100 MG CAPSULE PO SCH ×2 (11:25→20:34)
[2018-06-22] MEDS: INSULIN REGULAR 100 UNIT/ML SUBCUT SCH ×4 (11:26→20:36)
[2018-06-22] MEDS: ISOSORBIDE DINITRATE 20 MG TABLET PO SCH ×3 (11:26→20:35)
[2018-06-22] MEDS: FERROUS SULFATE 325 MG TABLET PO SCH (11:26)
[2018-06-22] MEDS: INSULIN GLARGINE 100 UNIT/ML SUBCUT SCH ×2 (11:26→20:35)
[2018-06-22] MEDS: methylPREDNISolone SOD SUC 40 MG/1 ML VIAL IV SCH ×2 (11:27→21:24)
[2018-06-22] MEDS: DORZOLAMIDE/TIMOLOL OPH SOLN 10 ML BOTTLE RIGHT EYE SCH ×2 (11:27→20:39)
[2018-06-22] MEDS: MAGNESIUM HYDROXIDE SUSP 30 ML UDCUP PO SCH ×3 (11:27→20:39)
[2018-06-22] MEDS: ASPIRIN EC 81 MG TABLET PO SCH (11:30)
[2018-06-22] MEDS: ROSUVASTATIN 10 MG TABLET PO SCH (20:35)
[2018-06-22] MEDS: LATANOPROST 0.005% OPH SOLN 2.5 ML BOTTLE RIGHT EYE SCH (20:39)
[2018-06-23] MEDS: ALBUTEROL/IPRATROPIUM 3 ML NEB RESP TX SCH ×6 (03:02→22:36)
[2018-06-23 05:40] LABS: Calcium 8.6 MG/DL (8.5-10.1); Osmolality,Calculated 312.2 MOS/KG (273-304); Potassium 5.2 MMOL/L (3.5-5.1)
[2018-06-23] MEDS: BUDESONIDE 0.25 MG/2 ML NEB RESP TX SCH ×2 (07:20→19:07)
[2018-06-23] MEDS: INSULIN REGULAR 100 UNIT/ML SUBCUT SCH ×4 (08:47→22:00)
[2018-06-23] MEDS: INSULIN GLARGINE 100 UNIT/ML SUBCUT SCH ×2 (08:48→21:59)
[2018-06-23] MEDS: DORZOLAMIDE/TIMOLOL OPH SOLN 10 ML BOTTLE RIGHT EYE SCH ×2 (08:48→21:40)
[2018-06-23] MEDS: MAGNESIUM HYDROXIDE SUSP 30 ML UDCUP PO SCH ×3 (08:48→21:39)
[2018-06-23] MEDS: methylPREDNISolone SOD SUC 40 MG/1 ML VIAL IV SCH ×2 (08:48→21:39)
[2018-06-23] MEDS: BENZONATATE 100 MG CAPSULE PO SCH ×2 (08:49→21:38)
[2018-06-23] MEDS: MINOXIDIL 2.5 MG TABLET PO SCH (08:49)
[2018-06-23] MEDS: FERROUS SULFATE 325 MG TABLET PO SCH (08:49)
[2018-06-23] MEDS: FUROSEMIDE 40 MG TABLET PO SCH (08:49)
[2018-06-23] MEDS: ASPIRIN EC 81 MG TABLET PO SCH (08:49)
[2018-06-23] MEDS: ISOSORBIDE DINITRATE 20 MG TABLET PO SCH ×3 (08:49→21:38)
[2018-06-23] MEDS: cefTRIAXone 1,000 MG in SYRINGE 1 EACH IV SCH (17:17)
[2018-06-23] MEDS: ROSUVASTATIN 10 MG TABLET PO SCH (21:39)
[2018-06-23] MEDS: LATANOPROST 0.005% OPH SOLN 2.5 ML BOTTLE RIGHT EYE SCH (21:40)
[2018-06-24] MEDS: ALBUTEROL/IPRATROPIUM 3 ML NEB RESP TX SCH ×5 (02:41→19:54)
[2018-06-24 05:24] LABS: Calcium 8.7 MG/DL (8.5-10.1); Osmolality,Calculated 315.8 MOS/KG (273-304); Potassium 5.2 MMOL/L (3.5-5.1)
[2018-06-24] MEDS: BUDESONIDE 0.25 MG/2 ML NEB RESP TX SCH ×2 (07:40→19:54)
[2018-06-24] MEDS: INSULIN REGULAR 100 UNIT/ML SUBCUT SCH ×4 (08:48→21:02)
[2018-06-24] MEDS: methylPREDNISolone SOD SUC 40 MG/1 ML VIAL IV SCH ×2 (09:51→21:02)
[2018-06-24] MEDS: MAGNESIUM HYDROXIDE SUSP 30 ML UDCUP PO SCH ×3 (09:55→21:01)
[2018-06-24] MEDS: ISOSORBIDE DINITRATE 20 MG TABLET PO SCH ×3 (09:56→21:01)
[2018-06-24] MEDS: FUROSEMIDE 40 MG TABLET PO SCH (09:56)
[2018-06-24] MEDS: ASPIRIN EC 81 MG TABLET PO SCH (09:56)
[2018-06-24] MEDS: FERROUS SULFATE 325 MG TABLET PO SCH (09:56)
[2018-06-24] MEDS: BENZONATATE 100 MG CAPSULE PO SCH ×2 (09:56→21:01)
[2018-06-24] MEDS: DORZOLAMIDE/TIMOLOL OPH SOLN 10 ML BOTTLE RIGHT EYE SCH ×2 (09:57→21:13)
[2018-06-24] MEDS: INSULIN GLARGINE 100 UNIT/ML SUBCUT SCH ×2 (09:58→21:02)
[2018-06-24] MEDS ORDERED: SODIUM POLYSTYRENE SULFATE 15 GM/60 ML BOTTLE PO ONE (11:00)
[2018-06-24] MEDS ORDERED: FUROSEMIDE 40 MG/4 ML VIAL IV ONE (15:00)
[2018-06-24] MEDS: cefTRIAXone 1,000 MG in SYRINGE 1 EACH IV SCH (16:37)
[2018-06-24] MEDS: ROSUVASTATIN 10 MG TABLET PO SCH (21:01)
[2018-06-24] MEDS: LATANOPROST 0.005% OPH SOLN 2.5 ML BOTTLE RIGHT EYE SCH (21:13)
[2018-06-25] MEDS: ALBUTEROL/IPRATROPIUM 3 ML NEB RESP TX SCH ×6 (00:06→19:43)
[2018-06-25 04:52] LABS: Basophils % 0.1 % (0.0-0.8); Eosinophils % 0.1 % (0.00-10.9); Hematocrit 28.8 VOL% (42.0-52.0); Hemoglobin 9.1 GM/DL (14.0-18.0); Immature Granulocytes % 2.4 %; Immature Granulocytes Absolute 0.37 #; Lymphocytes # 0.2 10*3/uL (1.4-4.0); Lymphocytes % 1.4 % (21.2-54.2); Mean Corpuscular HGB Conc 31.6 GM/DL (32-36); Mean Corpuscular Hemoglobin 28 PG (27-34); Mean Corpuscular Volume 89.7 FL (87-102); Mean Platelet Volume 11.7 FL (9.6-12.0); Monocytes # 0.9 10*3/uL (0.11-0.8); Monocytes % 5.6 % (1.7-12.7); Neutrophils % 90.4 % (38.7-73.9); Platelet Count 178 T/CUMM (130-400); Red Blood Count 3.21 MC/CUMM (3.8-5.5); Red Cell Distribution Width 15.5 % (9.3-17.3); White Blood Count 15.5 T/CUMM (4-12)
[2018-06-25 05:24] LABS: Calcium 8.7 MG/DL (8.5-10.1); Osmolality,Calculated 319.5 MOS/KG (273-304); Potassium 5.6 MMOL/L (3.5-5.1)
[2018-06-25 05:56] LABS: Band Neutrophils 1 % (0-10); Hypochromasia 1+; Lymphocytes 5 % (20-55); Segmented Neutrophils 92 % (50-85); Total Cells Counted 100
[2018-06-25 05:57] LABS: Anisocytosis 1+; Microcytosis 1+; Ovalocytes Slight; Platelet Estimate Adequate
[2018-06-25] MEDS: INSULIN REGULAR 100 UNIT/ML SUBCUT SCH ×4 (07:32→20:57)
[2018-06-25] MEDS: BUDESONIDE 0.25 MG/2 ML NEB RESP TX SCH ×2 (07:55→19:47)
[2018-06-25] MEDS: FUROSEMIDE 40 MG TABLET PO SCH (08:50)
[2018-06-25] MEDS: ASPIRIN EC 81 MG TABLET PO SCH (08:50)
[2018-06-25] MEDS: BENZONATATE 100 MG CAPSULE PO SCH ×2 (08:51→20:56)
[2018-06-25] MEDS: FERROUS SULFATE 325 MG TABLET PO SCH (08:51)
[2018-06-25] MEDS: MAGNESIUM HYDROXIDE SUSP 30 ML UDCUP PO SCH ×3 (08:51→20:56)
[2018-06-25] MEDS: ISOSORBIDE DINITRATE 20 MG TABLET PO SCH ×3 (08:51→20:56)
[2018-06-25] MEDS: INSULIN GLARGINE 100 UNIT/ML SUBCUT SCH ×2 (08:51→20:56)
[2018-06-25] MEDS: methylPREDNISolone SOD SUC 40 MG/1 ML VIAL IV SCH ×2 (08:56→20:57)
[2018-06-25] MEDS: DORZOLAMIDE/TIMOLOL OPH SOLN 10 ML BOTTLE RIGHT EYE SCH ×2 (09:30→20:58)
[2018-06-25] MEDS: cefTRIAXone 1,000 MG in SYRINGE 1 EACH IV SCH (17:19)
[2018-06-25] MEDS ORDERED: SODIUM POLYSTYRENE SULFATE 15 GM/60 ML BOTTLE PO STA (17:34)
[2018-06-25] MEDS: ROSUVASTATIN 10 MG TABLET PO SCH (20:56)
[2018-06-25] MEDS: LATANOPROST 0.005% OPH SOLN 2.5 ML BOTTLE RIGHT EYE SCH (20:58)
[2018-06-26] MEDS: ALBUTEROL/IPRATROPIUM 3 ML NEB RESP TX SCH ×7 (00:29→23:16)
[2018-06-26 04:45] LABS: Basophils % 0.1 % (0.0-0.8); Eosinophils % 0.1 % (0.00-10.9); Hematocrit 27.9 VOL% (42.0-52.0); Hemoglobin 8.6 GM/DL (14.0-18.0); Immature Granulocytes % 1.4 %; Immature Granulocytes Absolute 0.21 #; Lymphocytes # 0.2 10*3/uL (1.4-4.0); Lymphocytes % 1.6 % (21.2-54.2); Mean Corpuscular HGB Conc 30.8 GM/DL (32-36); Mean Corpuscular Hemoglobin 28 PG (27-34); Mean Corpuscular Volume 90.9 FL (87-102); Mean Platelet Volume 12.5 FL (9.6-12.0); Monocytes # 0.8 10*3/uL (0.11-0.8); Monocytes % 5.2 % (1.7-12.7); Neutrophils # 13.4 10*3/uL (1.4-7.4); Neutrophils % 91.6 % (38.7-73.9); Platelet Count 162 T/CUMM (130-400); Red Blood Count 3.07 MC/CUMM (3.8-5.5); Red Cell Distribution Width 15.6 % (9.3-17.3); White Blood Count 14.6 T/CUMM (4-12)
[2018-06-26 05:06] LABS: Lymphocytes 5 % (20-55); Platelet Estimate Normal; Polychromasia Few; Segmented Neutrophils 94 % (50-85); Total Cells Counted 100
[2018-06-26 05:16] LABS: Calcium 8.6 MG/DL (8.5-10.1); Osmolality,Calculated 319.4 MOS/KG (273-304); Potassium 5.9 MMOL/L (3.5-5.1)
[2018-06-26] MEDS: INSULIN REGULAR 100 UNIT/ML SUBCUT SCH ×4 (07:25→22:07)
[2018-06-26] MEDS: BUDESONIDE 0.25 MG/2 ML NEB RESP TX SCH ×2 (07:47→19:26)
[2018-06-26] MEDS: ASPIRIN EC 81 MG TABLET PO SCH (08:25)
[2018-06-26] MEDS: DORZOLAMIDE/TIMOLOL OPH SOLN 10 ML BOTTLE RIGHT EYE SCH ×2 (08:25→20:29)
[2018-06-26] MEDS: FERROUS SULFATE 325 MG TABLET PO SCH (08:26)
[2018-06-26] MEDS: ISOSORBIDE DINITRATE 20 MG TABLET PO SCH ×3 (08:27→20:29)
[2018-06-26] MEDS: FUROSEMIDE 40 MG TABLET PO SCH (08:27)
[2018-06-26] MEDS: MAGNESIUM HYDROXIDE SUSP 30 ML UDCUP PO SCH ×3 (08:28→20:29)
[2018-06-26] MEDS: BENZONATATE 100 MG CAPSULE PO SCH ×2 (08:28→20:29)
[2018-06-26] MEDS: INSULIN GLARGINE 100 UNIT/ML SUBCUT SCH ×2 (08:32→20:30)
[2018-06-26] MEDS: methylPREDNISolone SOD SUC 40 MG/1 ML VIAL IV SCH ×2 (13:47→20:30)
[2018-06-26] MEDS ORDERED: SODIUM POLYSTYRENE SULFATE 15 GM/60 ML BOTTLE PO ONE (15:00)
[2018-06-26] MEDS: cefTRIAXone 1,000 MG in SYRINGE 1 EACH IV SCH (17:23)
[2018-06-26] MEDS ORDERED: FUROSEMIDE 40 MG/4 ML VIAL IV ONE (17:57)
[2018-06-26] MEDS ORDERED: ONDANSETRON 4 MG/2 ML VIAL IV PRN (17:58)
[2018-06-26] MEDS: LATANOPROST 0.005% OPH SOLN 2.5 ML BOTTLE RIGHT EYE SCH (20:29)
[2018-06-26] MEDS: ROSUVASTATIN 10 MG TABLET PO SCH (20:33)
[2018-06-27] MEDS: ALBUTEROL/IPRATROPIUM 3 ML NEB RESP TX SCH ×6 (03:36→23:22)
[2018-06-27 05:05] LABS: Calcium 8.3 MG/DL (8.5-10.1); Osmolality,Calculated 322.3 MOS/KG (273-304); Potassium 5.6 MMOL/L (3.5-5.1)
[2018-06-27] MEDS: BUDESONIDE 0.25 MG/2 ML NEB RESP TX SCH ×2 (07:08→19:02)
[2018-06-27] MEDS: INSULIN REGULAR 100 UNIT/ML SUBCUT SCH ×4 (08:29→22:15)
[2018-06-27] MEDS: INSULIN GLARGINE 100 UNIT/ML SUBCUT SCH ×2 (09:26→22:12)
[2018-06-27] MEDS: methylPREDNISolone SOD SUC 40 MG/1 ML VIAL IV SCH ×2 (09:26→22:16)
[2018-06-27] MEDS: BENZONATATE 100 MG CAPSULE PO SCH ×2 (09:27→22:14)
[2018-06-27] MEDS: FERROUS SULFATE 325 MG TABLET PO SCH (09:27)
[2018-06-27] MEDS: MAGNESIUM HYDROXIDE SUSP 30 ML UDCUP PO SCH ×3 (09:27→22:13)
[2018-06-27] MEDS: ASPIRIN EC 81 MG TABLET PO SCH (09:27)
[2018-06-27] MEDS: ISOSORBIDE DINITRATE 20 MG TABLET PO SCH ×3 (09:28→22:14)
[2018-06-27] MEDS: FUROSEMIDE 40 MG TABLET PO SCH (09:28)
[2018-06-27] MEDS: DORZOLAMIDE/TIMOLOL OPH SOLN 10 ML BOTTLE RIGHT EYE SCH ×2 (09:29→22:15)
[2018-06-27] MEDS ORDERED: FUROSEMIDE 40 MG/4 ML VIAL IV ONE (15:30)
[2018-06-27] MEDS: cefTRIAXone 1,000 MG in SYRINGE 1 EACH IV SCH (16:29)
[2018-06-27] MEDS: ROSUVASTATIN 10 MG TABLET PO SCH (22:14)
[2018-06-27] MEDS: LATANOPROST 0.005% OPH SOLN 2.5 ML BOTTLE RIGHT EYE SCH (22:15)
[2018-06-28] MEDS: ALBUTEROL/IPRATROPIUM 3 ML NEB RESP TX SCH ×6 (03:40→23:07)
[2018-06-28 06:01] LABS: Basophils % 0.1 % (0.0-0.8); Eosinophils # 0.1 10*3/uL (0.0-0.87); Eosinophils % 0.8 % (0.00-10.9); Hematocrit 32.6 VOL% (42.0-52.0); Immature Granulocytes Absolute 0.14 #; Lymphocytes # 0.4 10*3/uL (1.4-4.0); Lymphocytes % 2.8 % (21.2-54.2); Mean Corpuscular HGB Conc 30.7 GM/DL (32-36); Mean Corpuscular Hemoglobin 28 PG (27-34); Mean Corpuscular Volume 92.6 FL (87-102); Monocytes # 0.8 10*3/uL (0.11-0.8); Monocytes % 5.6 % (1.7-12.7); Neutrophils # 12.7 10*3/uL (1.4-7.4); Neutrophils % 89.7 % (38.7-73.9); Platelet Count 152 T/CUMM (130-400); Red Blood Count 3.52 MC/CUMM (3.8-5.5); Red Cell Distribution Width 16.3 % (9.3-17.3); White Blood Count 14.2 T/CUMM (4-12)
[2018-06-28 06:20] LABS: Albumin 3.3 G/DL (3.4-5.0); Bilirubin,Total 0.5 MG/DL (0.2-1.0); Calcium 8.6 MG/DL (8.5-10.1); Osmolality,Calculated 312.4 MOS/KG (273-304); Potassium 5.8 MMOL/L (3.5-5.1); Total Protein 6.7 G/DL (6.4-8.3)
[2018-06-28 06:26] LABS: Eosinophils 1 % (0-10); Hypochromasia 1+; Lymphocytes 4 % (20-55); Ovalocytes Slight; Platelet Estimate Adequate; Segmented Neutrophils 91 % (50-85); Total Cells Counted 100
[2018-06-28 06:27] LABS: Microcytosis Slight
[2018-06-28] MEDS: BUDESONIDE 0.25 MG/2 ML NEB RESP TX SCH ×2 (08:10→19:37)
[2018-06-28] MEDS: BENZONATATE 100 MG CAPSULE PO SCH ×2 (08:32→22:52)
[2018-06-28] MEDS: INSULIN GLARGINE 100 UNIT/ML SUBCUT SCH ×2 (08:32→22:55)
[2018-06-28] MEDS: FERROUS SULFATE 325 MG TABLET PO SCH (08:32)
[2018-06-28] MEDS: ASPIRIN EC 81 MG TABLET PO SCH (08:32)
[2018-06-28] MEDS: MAGNESIUM HYDROXIDE SUSP 30 ML UDCUP PO SCH ×3 (08:32→22:54)
[2018-06-28] MEDS: ISOSORBIDE DINITRATE 20 MG TABLET PO SCH ×3 (08:32→22:52)
[2018-06-28] MEDS: methylPREDNISolone SOD SUC 40 MG/1 ML VIAL IV SCH ×2 (08:33→22:10)
[2018-06-28] MEDS: INSULIN REGULAR 100 UNIT/ML SUBCUT SCH ×4 (08:38→22:54)
[2018-06-28] MEDS: FUROSEMIDE 40 MG/4 ML VIAL IV SCH (08:38)
[2018-06-28] MEDS: DORZOLAMIDE/TIMOLOL OPH SOLN 10 ML BOTTLE RIGHT EYE SCH ×2 (08:39→23:07)
[2018-06-28] MEDS ORDERED: SODIUM POLYSTYRENE SULFATE 15 GM/60 ML BOTTLE PO STA (09:30)
[2018-06-28] MEDS: cefTRIAXone 1,000 MG in SYRINGE 1 EACH IV SCH (18:04)
[2018-06-28] MEDS: ROSUVASTATIN 10 MG TABLET PO SCH (22:52)
[2018-06-28] MEDS: LATANOPROST 0.005% OPH SOLN 2.5 ML BOTTLE RIGHT EYE SCH (22:53)
[2018-06-29] MEDS: ALBUTEROL/IPRATROPIUM 3 ML NEB RESP TX SCH ×5 (03:22→19:09)
[2018-06-29 06:05] LABS: Calcium 8.3 MG/DL (8.5-10.1); Osmolality,Calculated 310.4 MOS/KG (273-304); Potassium 5.8 MMOL/L (3.5-5.1)
[2018-06-29] MEDS: BUDESONIDE 0.25 MG/2 ML NEB RESP TX SCH ×2 (07:05→19:04)
[2018-06-29] MEDS: INSULIN REGULAR 100 UNIT/ML SUBCUT SCH ×4 (07:35→23:46)
[2018-06-29] MEDS: SODIUM POLYSTYRENE SULFATE 15 GM/60 ML BOTTLE PO SCH ×2 (08:39→16:10)
[2018-06-29] MEDS: methylPREDNISolone SOD SUC 40 MG/1 ML VIAL IV SCH ×2 (08:40→21:55)
[2018-06-29] MEDS: FUROSEMIDE 40 MG/4 ML VIAL IV SCH (08:40)
[2018-06-29] MEDS: ISOSORBIDE DINITRATE 20 MG TABLET PO SCH ×3 (08:41→23:44)
[2018-06-29] MEDS: INSULIN GLARGINE 100 UNIT/ML SUBCUT SCH ×2 (08:41→23:45)
[2018-06-29] MEDS: BENZONATATE 100 MG CAPSULE PO SCH ×2 (08:41→23:43)
[2018-06-29] MEDS: ASPIRIN EC 81 MG TABLET PO SCH (08:42)
[2018-06-29] MEDS: MAGNESIUM HYDROXIDE SUSP 30 ML UDCUP PO SCH ×3 (08:42→23:42)
[2018-06-29] MEDS: FERROUS SULFATE 325 MG TABLET PO SCH (08:42)
[2018-06-29] MEDS: DORZOLAMIDE/TIMOLOL OPH SOLN 10 ML BOTTLE RIGHT EYE SCH ×2 (08:43→23:47)
[2018-06-29] MEDS: cefTRIAXone 1,000 MG in SYRINGE 1 EACH IV SCH (17:38)
[2018-06-29] MEDS: ROSUVASTATIN 10 MG TABLET PO SCH (23:42)
[2018-06-29] MEDS: LATANOPROST 0.005% OPH SOLN 2.5 ML BOTTLE RIGHT EYE SCH (23:46)
[2018-06-30] MEDS: ALBUTEROL/IPRATROPIUM 3 ML NEB RESP TX SCH ×7 (00:37→23:28)
[2018-06-30] MEDS: SODIUM POLYSTYRENE SULFATE 15 GM/60 ML BOTTLE PO SCH ×3 (01:48→16:39)
[2018-06-30 04:59] LABS: Calcium 8.5 MG/DL (8.5-10.1); Potassium 5.4 MMOL/L (3.5-5.1)
[2018-06-30] MEDS: INSULIN REGULAR 100 UNIT/ML SUBCUT SCH ×4 (07:22→22:05)
[2018-06-30] MEDS: BUDESONIDE 0.25 MG/2 ML NEB RESP TX SCH ×2 (07:25→19:39)
[2018-06-30] MEDS: methylPREDNISolone SOD SUC 40 MG/1 ML VIAL IV SCH ×2 (08:35→22:16)
[2018-06-30] MEDS: MAGNESIUM HYDROXIDE SUSP 30 ML UDCUP PO SCH ×3 (08:36→22:13)
[2018-06-30] MEDS: BENZONATATE 100 MG CAPSULE PO SCH ×2 (08:36→22:14)
[2018-06-30] MEDS: FUROSEMIDE 40 MG/4 ML VIAL IV SCH (08:36)
[2018-06-30] MEDS: FERROUS SULFATE 325 MG TABLET PO SCH (08:37)
[2018-06-30] MEDS: INSULIN GLARGINE 100 UNIT/ML SUBCUT SCH ×2 (08:37→22:12)
[2018-06-30] MEDS: DORZOLAMIDE/TIMOLOL OPH SOLN 10 ML BOTTLE RIGHT EYE SCH ×2 (08:37→22:05)
[2018-06-30] MEDS: ASPIRIN EC 81 MG TABLET PO SCH (08:37)
[2018-06-30] MEDS: ISOSORBIDE DINITRATE 20 MG TABLET PO SCH ×3 (08:37→22:16)
[2018-06-30] MEDS: cefTRIAXone 1,000 MG in SYRINGE 1 EACH IV SCH (16:39)
[2018-06-30] MEDS: LATANOPROST 0.005% OPH SOLN 2.5 ML BOTTLE RIGHT EYE SCH (22:06)
[2018-06-30] MEDS: ROSUVASTATIN 10 MG TABLET PO SCH (22:14)
[2018-07-01] MEDS: SODIUM POLYSTYRENE SULFATE 15 GM/60 ML BOTTLE PO SCH ×2 (03:11→08:44)
[2018-07-01] MEDS: ALBUTEROL/IPRATROPIUM 3 ML NEB RESP TX SCH ×4 (03:32→15:24)
[2018-07-01 05:33] LABS: Basophils % 0.1 % (0.0-0.8); Eosinophils % 0.1 % (0.00-10.9); Hematocrit 28.5 VOL% (42.0-52.0); Hemoglobin 8.4 GM/DL (14.0-18.0); Immature Granulocytes % 0.8 %; Lymphocytes # 0.3 10*3/uL (1.4-4.0); Lymphocytes % 2.2 % (21.2-54.2); Mean Corpuscular HGB Conc 29.5 GM/DL (32-36); Mean Corpuscular Hemoglobin 28 PG (27-34); Mean Corpuscular Volume 93.4 FL (87-102); Monocytes # 0.4 10*3/uL (0.11-0.8); Monocytes % 3.2 % (1.7-12.7); Neutrophils # 11.5 10*3/uL (1.4-7.4); Neutrophils % 93.6 % (38.7-73.9); Red Blood Count 3.05 MC/CUMM (3.8-5.5); Red Cell Distribution Width 16.5 % (9.3-17.3); White Blood Count 12.2 T/CUMM (4-12)
[2018-07-01 05:46] LABS: Platelet Count 118 T/CUMM (130-400)
[2018-07-01 06:01] LABS: Lymphocytes 2 % (20-55); Platelet Estimate Normal; Polychromasia Few; Segmented Neutrophils 98 % (50-85); Total Cells Counted 100
[2018-07-01 06:02] LABS: Bilirubin,Total 0.5 MG/DL (0.2-1.0); Calcium 8.3 MG/DL (8.5-10.1); Osmolality,Calculated 313.6 MOS/KG (273-304); Potassium 5.3 MMOL/L (3.5-5.1); Total Protein 6.1 G/DL (6.4-8.3)
[2018-07-01] MEDS: INSULIN REGULAR 100 UNIT/ML SUBCUT SCH ×2 (07:30→13:23)
[2018-07-01] MEDS: BUDESONIDE 0.25 MG/2 ML NEB RESP TX SCH (07:45)
[2018-07-01] MEDS: FUROSEMIDE 40 MG/4 ML VIAL IV SCH (08:36)
[2018-07-01] MEDS: methylPREDNISolone SOD SUC 40 MG/1 ML VIAL IV SCH (08:37)
[2018-07-01] MEDS: ISOSORBIDE DINITRATE 20 MG TABLET PO SCH ×2 (08:38→15:55)
[2018-07-01] MEDS: MAGNESIUM HYDROXIDE SUSP 30 ML UDCUP PO SCH ×2 (08:38→15:55)
[2018-07-01] MEDS: INSULIN GLARGINE 100 UNIT/ML SUBCUT SCH (08:38)
[2018-07-01] MEDS: ASPIRIN EC 81 MG TABLET PO SCH (08:38)
[2018-07-01] MEDS: BENZONATATE 100 MG CAPSULE PO SCH (08:39)
[2018-07-01] MEDS: DORZOLAMIDE/TIMOLOL OPH SOLN 10 ML BOTTLE RIGHT EYE SCH (08:40)
[2018-07-01] MEDS: FERROUS SULFATE 325 MG TABLET PO SCH (08:41)
[2018-07-01 15:48] VITALS: BP 177/71
== END 2018-07-01 18:03 | disposition home health service (06) | DRG 280 ==
LOC: N.ED 20:31 → N.2E 23:15 → N.EDINP 23:15 → N.2E 06-13 02:40
PROVIDERS: ADMIT Internal Medicine; ATTEND Internal Medicine

== ENCOUNTER 2020-04-18 12:30 | Inpatient (IN) ==
[2020-04-18 13:14] LABS: Basophils % 0.5 % (0.0-0.8); Eosinophils # 0.1 10*3/uL (0.0-0.87); Eosinophils % 2.2 % (0.00-10.9); Hematocrit 31.6 VOL% (42.0-52.0); Hemoglobin 9.8 GM/DL (14.0-18.0); Immature Granulocytes % 0.5 %; Immature Granulocytes Absolute 0.03 #; Lymphocytes # 0.8 10*3/uL (1.4-4.0); Lymphocytes % 12.4 % (21.2-54.2); Mean Platelet Volume 12.4 FL (9.6-12.0); Monocytes % 8.3 % (1.7-12.7); Neutrophils % 76.1 % (38.7-73.9); Platelet Count 159 T/CUMM (130-400); Red Blood Count 3.13 MC/CUMM (3.8-5.5); Red Cell Distribution Width 15.2 % (9.3-17.3)
[2020-04-18 13:40] LABS: Alanine Aminotransferase 34 U/L (16-61); Albumin 3.7 G/DL (3.4-5.0); Alkaline Phosphatase 100 U/L (45-117); Aspartate Amino Transferase 17 U/L (0-37); Bilirubin,Total < 0.39 MG/DL (0.2-1.0); Blood Urea Nitrogen 83 MG/DL (7-18); Calcium 9.7 MG/DL (8.5-10.1); Estimated Glom Filtration Rate 8 ML/MIN; Glucose 162 MG/DL (74-106); Osmolality,Calculated 316.7 MOS/KG (273-304); Total Protein 8.1 G/DL (6.4-8.3)
[2020-04-18] MEDS ORDERED: MORPHINE 10 MG/1 ML VIAL IV STA (15:27)
[2020-04-18] MEDS ORDERED: ONDANSETRON 4 MG/2 ML VIAL IV STA (15:27)
[2020-04-18] MEDS ORDERED: MORPHINE 4 MG/1 ML VIAL ONE (16:18)
[2020-04-18] MEDS ORDERED: ACETAMINOPHEN 325 MG TABLET PO PRN (16:52)
[2020-04-18] MEDS ORDERED: DEXTROSE 50% 25 GM/50 ML VIAL IV PRN (16:52)
[2020-04-18] MEDS ORDERED: GLUCAGON 1 MG VIAL IM PRN (16:52)
[2020-04-18] MEDS ORDERED: FUROSEMIDE 80 MG TABLET PO PRN (16:56)
[2020-04-18] MEDS ORDERED: ONDANSETRON 4 MG TABLET PO PRN (16:56)
[2020-04-18] MEDS ORDERED: ENOXAPARIN 30 MG/0.3 ML SYRINGE SUBCUT SCH (17:00)
[2020-04-18] MEDS: DOCUSATE SODIUM 100 MG CAPSULE PO SCH (21:13)
[2020-04-18] MEDS: FERROUS SULFATE 325 MG TABLET PO SCH (21:13)
[2020-04-18] MEDS: ROSUVASTATIN 10 MG TABLET PO SCH (21:13)
[2020-04-18] MEDS: ASPIRIN EC 81 MG TABLET PO SCH (21:13)
[2020-04-18] MEDS: DORZOLAMIDE/TIMOLOL OPH SOLN 10 ML BOTTLE RIGHT EYE SCH (21:14)
[2020-04-18] MEDS: LATANOPROST 0.005% OPH SOLN 2.5 ML BOTTLE RIGHT EYE SCH (21:14)
[2020-04-18] MEDS: INSULIN LISPRO 100 UNIT/ML SUBCUT SCH (22:18)
[2020-04-19 05:57] LABS: Calcium 9.3 MG/DL (8.5-10.1); Osmolality,Calculated 314.7 MOS/KG (273-304)
[2020-04-19] MEDS: INSULIN LISPRO 100 UNIT/ML SUBCUT SCH ×4 (08:43→21:04)
[2020-04-19] MEDS ORDERED: ERGOCALCIFEROL 50,000 UNIT CAPSULE PO SCH (09:00)
[2020-04-19] MEDS: ASCORBIC ACID 500 MG TABLET PO SCH (09:07)
[2020-04-19] MEDS: ISOSORBIDE MONONITRATE 60 MG TABLET PO SCH (09:07)
[2020-04-19] MEDS: FERROUS SULFATE 325 MG TABLET PO SCH ×2 (09:08→21:05)
[2020-04-19] MEDS: PANTOPRAZOLE 40 MG TABLET PO SCH (09:08)
[2020-04-19] MEDS: POLYETHYLENE GLYCOL POWDER 17 GM PACK PO SCH (09:08)
[2020-04-19] MEDS: DOCUSATE SODIUM 100 MG CAPSULE PO SCH ×2 (09:08→21:03)
[2020-04-19] MEDS: DORZOLAMIDE/TIMOLOL OPH SOLN 10 ML BOTTLE RIGHT EYE SCH ×2 (09:10→21:04)
[2020-04-19] MEDS: ONDANSETRON 4 MG/2 ML VIAL IV PRN ×2 (13:30→19:44)
[2020-04-19] MEDS ORDERED: ceFAZolin 1,000 MG in SYRINGE 1 EACH IV ONE (15:39)
[2020-04-19] MEDS: LATANOPROST 0.005% OPH SOLN 2.5 ML BOTTLE RIGHT EYE SCH (21:03)
[2020-04-19] MEDS: ASPIRIN EC 81 MG TABLET PO SCH (21:03)
[2020-04-19] MEDS: ROSUVASTATIN 10 MG TABLET PO SCH (21:03)
[2020-04-19] MEDS: MORPHINE 4 MG/1 ML VIAL IV PRN (23:33)
[2020-04-20] MEDS: ONDANSETRON 4 MG/2 ML VIAL IV PRN (05:33)
[2020-04-20 05:52] LABS: Basophils % 0.6 % (0.0-0.8); Eosinophils # 0.4 10*3/uL (0.0-0.87); Eosinophils % 5.6 % (0.00-10.9); Hematocrit 31.6 VOL% (42.0-52.0); Hemoglobin 9.6 GM/DL (14.0-18.0); Immature Granulocytes % 0.5 %; Immature Granulocytes Absolute 0.03 #; Lymphocytes # 0.9 10*3/uL (1.4-4.0); Lymphocytes % 13.7 % (21.2-54.2); Mean Corpuscular HGB Conc 30.4 GM/DL (32-36); Mean Corpuscular Volume 103.6 FL (87-102); Mean Platelet Volume 12.8 FL (9.6-12.0); Monocytes % 9.8 % (1.7-12.7); Neutrophils % 69.8 % (38.7-73.9); Platelet Count 173 T/CUMM (130-400); Red Blood Count 3.05 MC/CUMM (3.8-5.5); Red Cell Distribution Width 15.1 % (9.3-17.3); White Blood Count 6.2 T/CUMM (4-12)
[2020-04-20 06:18] LABS: Albumin 3.7 G/DL (3.4-5.0); Bilirubin,Total 0.6 MG/DL (0.2-1.0); Calcium 9.1 MG/DL (8.5-10.1); Osmolality,Calculated 311.1 MOS/KG (273-304); Total Protein 7.8 G/DL (6.4-8.3)
[2020-04-20] MEDS ORDERED: HEPARIN 5,000 UNIT/1 ML VIAL ONE (06:29)
[2020-04-20] MEDS ORDERED: BUPIVACAINE MPF 0.25% 30 ML VIAL ONE (06:29)
[2020-04-20] MEDS ORDERED: LIDOCAINE 1% 20 ML VIAL ONE (06:29)
[2020-04-20] MEDS ORDERED: ceFAZolin 1,000 MG in SYRINGE 1 EACH IV ONE (06:30)
[2020-04-20] MEDS ORDERED: MIDAZOLAM 2 MG/2 ML VIAL ONE (07:05)
[2020-04-20] MEDS ORDERED: fentaNYL 100 MCG/2 ML VIAL ONE (07:05)
[2020-04-20 07:49] LABS: Hepatitis B Core IgM Quant 0.05 Index; Hepatitis B Surface Ag Quant < 0.10 Index; Hepatitis B Surface Ag Result Negative (Negative); Hepatitis C Virus Ab Quant < 0.02 Index; Hepatitis C Virus Ab Result Negative (Negative)
[2020-04-20] MEDS ORDERED: ONDANSETRON 4 MG/2 ML VIAL IV STA (09:10)
[2020-04-20] MEDS: INSULIN LISPRO 100 UNIT/ML SUBCUT SCH ×4 (09:30→21:35)
[2020-04-20] MEDS: DOCUSATE SODIUM 100 MG CAPSULE PO SCH ×2 (10:39→21:12)
[2020-04-20] MEDS: ISOSORBIDE MONONITRATE 60 MG TABLET PO SCH (10:39)
[2020-04-20] MEDS: FERROUS SULFATE 325 MG TABLET PO SCH ×2 (10:41→21:12)
[2020-04-20] MEDS: PANTOPRAZOLE 40 MG TABLET PO SCH (10:41)
[2020-04-20] MEDS: POLYETHYLENE GLYCOL POWDER 17 GM PACK PO SCH (10:41)
[2020-04-20] MEDS: ASCORBIC ACID 500 MG TABLET PO SCH (10:42)
[2020-04-20] MEDS: DORZOLAMIDE/TIMOLOL OPH SOLN 10 ML BOTTLE RIGHT EYE SCH ×2 (10:57→21:16)
[2020-04-20] MEDS ORDERED: GLUCAGON 1 MG VIAL IM PRN (11:47)
[2020-04-20] MEDS ORDERED: DEXTROSE 50% 25 GM/50 ML VIAL IV PRN (11:47)
[2020-04-20] MEDS: ROSUVASTATIN 10 MG TABLET PO SCH (21:12)
[2020-04-20] MEDS: ASPIRIN EC 81 MG TABLET PO SCH (21:12)
[2020-04-20] MEDS: LATANOPROST 0.005% OPH SOLN 2.5 ML BOTTLE RIGHT EYE SCH (21:16)
[2020-04-21 06:21] LABS: Basophils % 0.6 % (0.0-0.8); Eosinophils # 0.3 10*3/uL (0.0-0.87); Eosinophils % 5.3 % (0.00-10.9); Hematocrit 27.8 VOL% (42.0-52.0); Hemoglobin 8.6 GM/DL (14.0-18.0); Immature Granulocytes % 0.4 %; Immature Granulocytes Absolute 0.02 #; Lymphocytes # 0.7 10*3/uL (1.4-4.0); Lymphocytes % 13.2 % (21.2-54.2); Mean Corpuscular HGB Conc 30.9 GM/DL (32-36); Mean Corpuscular Volume 100.7 FL (87-102); Mean Platelet Volume 12.7 FL (9.6-12.0); Monocytes % 12.4 % (1.7-12.7); Neutrophils % 68.1 % (38.7-73.9); Platelet Count 142 T/CUMM (130-400); Red Blood Count 2.76 MC/CUMM (3.8-5.5); Red Cell Distribution Width 14.9 % (9.3-17.3); White Blood Count 5.1 T/CUMM (4-12)
[2020-04-21 06:34] LABS: Calcium 8.6 MG/DL (8.5-10.1); Osmolality,Calculated 298.1 MOS/KG (273-304)
[2020-04-21] MEDS: INSULIN LISPRO 100 UNIT/ML SUBCUT SCH ×3 (07:55→20:36)
[2020-04-21] MEDS: POLYETHYLENE GLYCOL POWDER 17 GM PACK PO SCH (08:16)
[2020-04-21] MEDS: DOCUSATE SODIUM 100 MG CAPSULE PO SCH ×2 (08:16→20:32)
[2020-04-21] MEDS: ISOSORBIDE MONONITRATE 60 MG TABLET PO SCH (08:17)
[2020-04-21] MEDS: PANTOPRAZOLE 40 MG TABLET PO SCH (08:17)
[2020-04-21] MEDS: ASCORBIC ACID 500 MG TABLET PO SCH (08:17)
[2020-04-21] MEDS: FERROUS SULFATE 325 MG TABLET PO SCH ×2 (08:17→20:32)
[2020-04-21] MEDS: DORZOLAMIDE/TIMOLOL OPH SOLN 10 ML BOTTLE RIGHT EYE SCH ×2 (08:22→20:32)
[2020-04-21] MEDS ORDERED: HEPARIN 10,000 UNIT/10 ML VIAL IV PRN (10:51)
[2020-04-21] MEDS: ASPIRIN EC 81 MG TABLET PO SCH (20:32)
[2020-04-21] MEDS: ROSUVASTATIN 10 MG TABLET PO SCH (20:32)
[2020-04-21] MEDS: LATANOPROST 0.005% OPH SOLN 2.5 ML BOTTLE RIGHT EYE SCH (20:32)
[2020-04-22 06:07] LABS: Basophils % 0.8 % (0.0-0.8); Eosinophils # 0.3 10*3/uL (0.0-0.87); Eosinophils % 5.2 % (0.00-10.9); Hemoglobin 8.7 GM/DL (14.0-18.0); Immature Granulocytes % 0.2 %; Immature Granulocytes Absolute 0.01 #; Lymphocytes # 0.9 10*3/uL (1.4-4.0); Lymphocytes % 16.3 % (21.2-54.2); Mean Corpuscular HGB Conc 31.1 GM/DL (32-36); Mean Corpuscular Volume 98.9 FL (87-102); Mean Platelet Volume 12.9 FL (9.6-12.0); Monocytes % 16.8 % (1.7-12.7); Neutrophils % 60.7 % (38.7-73.9); Platelet Count 124 T/CUMM (130-400); Red Blood Count 2.83 MC/CUMM (3.8-5.5); Red Cell Distribution Width 14.3 % (9.3-17.3); White Blood Count 5.2 T/CUMM (4-12)
[2020-04-22 06:21] LABS: Calcium 8.4 MG/DL (8.5-10.1); Osmolality,Calculated 286.4 MOS/KG (273-304)
[2020-04-22] MEDS: INSULIN LISPRO 100 UNIT/ML SUBCUT SCH ×4 (07:57→20:52)
[2020-04-22] MEDS: ASCORBIC ACID 500 MG TABLET PO SCH (08:06)
[2020-04-22] MEDS: POLYETHYLENE GLYCOL POWDER 17 GM PACK PO SCH (08:06)
[2020-04-22] MEDS: FERROUS SULFATE 325 MG TABLET PO SCH ×2 (08:07→20:49)
[2020-04-22] MEDS: ISOSORBIDE MONONITRATE 60 MG TABLET PO SCH (08:07)
[2020-04-22] MEDS: DOCUSATE SODIUM 100 MG CAPSULE PO SCH ×2 (08:08→20:49)
[2020-04-22] MEDS: PANTOPRAZOLE 40 MG TABLET PO SCH (08:09)
[2020-04-22] MEDS: DORZOLAMIDE/TIMOLOL OPH SOLN 10 ML BOTTLE RIGHT EYE SCH ×2 (08:10→20:50)
[2020-04-22 08:58] LABS: Eosinophils 4 % (0-10); Lymphocytes 19 % (20-55); Segmented Neutrophils 66 % (50-85); Total Cells Counted 100
[2020-04-22 08:59] LABS: Hypochromasia 1+; Microcytosis 1+; Ovalocytes Slight; Tear Drop Cells Slight
[2020-04-22 09:00] LABS: Platelet Estimate Adequate
[2020-04-22] MEDS: ONDANSETRON 4 MG/2 ML VIAL IV PRN (12:53)
[2020-04-22] MEDS: MORPHINE 4 MG/1 ML VIAL IV PRN (19:48)
[2020-04-22] MEDS: ROSUVASTATIN 10 MG TABLET PO SCH (20:49)
[2020-04-22] MEDS: ASPIRIN EC 81 MG TABLET PO SCH (20:49)
[2020-04-22] MEDS: LATANOPROST 0.005% OPH SOLN 2.5 ML BOTTLE RIGHT EYE SCH (20:53)
[2020-04-23 05:40] LABS: Calcium 8.3 MG/DL (8.5-10.1); Osmolality,Calculated 290.4 MOS/KG (273-304)
[2020-04-23 05:56] LABS: Basophils % 0.5 % (0.0-0.8); Eosinophils # 0.3 10*3/uL (0.0-0.87); Eosinophils % 5.4 % (0.00-10.9); Hematocrit 26.2 VOL% (42.0-52.0); Hemoglobin 8.3 GM/DL (14.0-18.0); Immature Granulocytes % 0.4 %; Immature Granulocytes Absolute 0.02 #; Lymphocytes # 0.9 10*3/uL (1.4-4.0); Lymphocytes % 15.3 % (21.2-54.2); Mean Corpuscular HGB Conc 31.7 GM/DL (32-36); Mean Corpuscular Volume 98.9 FL (87-102); Mean Platelet Volume 12.9 FL (9.6-12.0); Monocytes % 15.3 % (1.7-12.7); Neutrophils % 63.1 % (38.7-73.9); Platelet Count 139 T/CUMM (130-400); Red Blood Count 2.65 MC/CUMM (3.8-5.5); Red Cell Distribution Width 14.2 % (9.3-17.3); White Blood Count 5.5 T/CUMM (4-12)
[2020-04-23] MEDS: INSULIN LISPRO 100 UNIT/ML SUBCUT SCH ×3 (08:11→17:35)
[2020-04-23] MEDS: DORZOLAMIDE/TIMOLOL OPH SOLN 10 ML BOTTLE RIGHT EYE SCH ×2 (08:11→21:02)
[2020-04-23] MEDS: ASCORBIC ACID 500 MG TABLET PO SCH (11:37)
[2020-04-23] MEDS: PANTOPRAZOLE 40 MG TABLET PO SCH (11:38)
[2020-04-23] MEDS: FERROUS SULFATE 325 MG TABLET PO SCH ×2 (11:38→21:03)
[2020-04-23] MEDS: DOCUSATE SODIUM 100 MG CAPSULE PO SCH ×2 (11:38→21:03)
[2020-04-23] MEDS: POLYETHYLENE GLYCOL POWDER 17 GM PACK PO SCH (11:39)
[2020-04-23] MEDS: ISOSORBIDE MONONITRATE 60 MG TABLET PO SCH (11:39)
[2020-04-23] MEDS: ROSUVASTATIN 10 MG TABLET PO SCH (21:03)
[2020-04-23] MEDS: ASPIRIN EC 81 MG TABLET PO SCH (21:03)
[2020-04-23] MEDS: LATANOPROST 0.005% OPH SOLN 2.5 ML BOTTLE RIGHT EYE SCH (21:05)
[2020-04-24] MEDS: INSULIN LISPRO 100 UNIT/ML SUBCUT SCH ×4 (04:27→16:26)
[2020-04-24 05:44] LABS: Basophils % 0.6 % (0.0-0.8); Eosinophils # 0.3 10*3/uL (0.0-0.87); Eosinophils % 6.5 % (0.00-10.9); Hematocrit 27.1 VOL% (42.0-52.0); Hemoglobin 8.3 GM/DL (14.0-18.0); Immature Granulocytes % 0.4 %; Immature Granulocytes Absolute 0.02 #; Lymphocytes # 0.9 10*3/uL (1.4-4.0); Lymphocytes % 17.2 % (21.2-54.2); Mean Corpuscular HGB Conc 30.6 GM/DL (32-36); Mean Corpuscular Volume 100.7 FL (87-102); Mean Platelet Volume 12.2 FL (9.6-12.0); Neutrophils % 59.3 % (38.7-73.9); Platelet Count 123 T/CUMM (130-400); Red Blood Count 2.69 MC/CUMM (3.8-5.5); Red Cell Distribution Width 14.3 % (9.3-17.3)
[2020-04-24 06:10] LABS: Calcium 8.2 MG/DL (8.5-10.1); Osmolality,Calculated 287.4 MOS/KG (273-304)
[2020-04-24 07:13] LABS: Eosinophils 4 % (0-10); Lymphocytes 13 % (20-55); Platelet Estimate Adequate; Polychromasia Slight; Schistocytes Slight; Segmented Neutrophils 73 % (50-85); Total Cells Counted 100
[2020-04-24 07:14] LABS: Hypochromasia Slight
[2020-04-24] MEDS: PANTOPRAZOLE 40 MG TABLET PO SCH (09:32)
[2020-04-24] MEDS: ISOSORBIDE MONONITRATE 60 MG TABLET PO SCH (09:32)
[2020-04-24] MEDS: ASCORBIC ACID 500 MG TABLET PO SCH (09:32)
[2020-04-24] MEDS: DOCUSATE SODIUM 100 MG CAPSULE PO SCH (09:32)
[2020-04-24] MEDS: FERROUS SULFATE 325 MG TABLET PO SCH (09:33)
[2020-04-24] MEDS: DORZOLAMIDE/TIMOLOL OPH SOLN 10 ML BOTTLE RIGHT EYE SCH (09:33)
[2020-04-24] MEDS: POLYETHYLENE GLYCOL POWDER 17 GM PACK PO SCH (10:59)
[2020-04-24 15:54] VITALS: BP 159/45
== END 2020-04-24 18:05 | disposition home or self-care (01) | DRG 291 ==
LOC: N.ED 12:30 → N.EDINP 12:30 → N.3E 18:38
PROVIDERS: ADMIT Internal Medicine; ATTEND Internal Medicine

== ENCOUNTER 2022-01-01 11:15 | Observation (INO) ==
[~2022-01-01 11:15] MED LIST: ASPIRIN 325 MG TABLET PO ONE; DIAZEPAM 5 MG TABLET PO ONE; MAGNESIUM SULF RIDER 2 GM/50 ML PREMIX IV PRN; POTASSIUM CHLORIDE RIDER 10 MEQ/100 ML PREMIX IV PRN; diphenhydrAMINE CAP 50 MG CAPSULE PO ONE
[2022-01-01] MEDS ORDERED: DIAZEPAM 5 MG TABLET ONE (11:43)
[2022-01-01] MEDS ORDERED: ASPIRIN 325 MG TABLET ONE (11:43)
[2022-01-01] MEDS ORDERED: diphenhydrAMINE CAP 50 MG CAPSULE ONE (11:43)
[2022-01-01 12:04] LABS: Basophils # 0.1 10*3/uL (0.0-0.2); Basophils % 0.5 % (0.0-0.8); Eosinophils # 0.2 10*3/uL (0.0-0.87); Eosinophils % 1.9 % (0.00-10.9); Hematocrit 32.5 VOL% (42.0-52.0); Hemoglobin 10.3 GM/DL (14.0-18.0); Immature Granulocytes Absolute 0.11 #; Lymphocytes # 1.3 10*3/uL (1.4-4.0); Lymphocytes % 11.4 % (21.2-54.2); Mean Corpuscular HGB Conc 31.7 GM/DL (32-36); Mean Corpuscular Volume 103.2 FL (87-102); Mean Platelet Volume 11.1 FL (9.6-12.0); Monocytes # 1.1 10*3/uL (0.11-0.8); Monocytes % 9.8 % (1.7-12.7); Neutrophils % 75.4 % (38.7-73.9); Platelet Count 236 T/CUMM (130-400); Red Blood Count 3.15 MC/CUMM (3.8-5.5); Red Cell Distribution Width 14.5 % (9.3-17.3); White Blood Count 11.5 T/CUMM (4-12)
[2022-01-01 12:13] LABS: INR 0.9; PT Patient Result 10.3 SECS (10.1-12.1)
[2022-01-01 12:21] LABS: Calcium 10.5 MG/DL (8.5-10.1); Osmolality,Calculated 290.8 MOS/KG (273-304); Potassium 4.5 MMOL/L (3.5-5.1)
[2022-01-01] MEDS ORDERED: VANCOMYCIN INJ 1,000 MG in SODIUM CHLORIDE 0.9% 250 ML IV ONE (15:58)
[2022-01-01] MEDS: SODIUM CHLORIDE 0.9% 1,000 ML IV SCH ×2 (17:10→17:11)
[2022-01-01] MEDS ORDERED: HYDROmorphone 1 MG/1 ML SYRINGE ONE ×2 (18:59→21:18)
[2022-01-01] MEDS ORDERED: MIDAZOLAM 2 MG/2 ML VIAL ONE (18:59)
[2022-01-01] MEDS ORDERED: hydrALAZINE 20 MG/1 ML VIAL ONE ×2 (19:20→21:15)
[2022-01-01] MEDS ORDERED: HEPARIN 5,000 UNIT/1 ML VIAL ONE ×2 (19:21→19:41)
[2022-01-01] MEDS ORDERED: VERAPAMIL 5 MG/2 ML VIAL ONE (19:26)
[2022-01-01] MEDS ORDERED: TIROFIBAN 5,000 MCG/100 ML PREMIX IV ONE (21:01)
[2022-01-01] MEDS ORDERED: CLOPIDOGREL 300 MG TABLET ONE (21:22)
[2022-01-01] MEDS: NEBIVOLOL 5 MG TABLET PO SCH (22:29)
[2022-01-01] MEDS: ASCORBIC ACID 500 MG TABLET PO SCH (22:29)
[2022-01-01] MEDS: EZETIMIBE 10 MG TABLET PO SCH (22:29)
[2022-01-01] MEDS: ROSUVASTATIN 20 MG TABLET PO SCH (22:29)
[2022-01-01] MEDS: FERROUS SULFATE 325 MG TABLET PO SCH (22:30)
[2022-01-01] MEDS: LORATADINE 10 MG TABLET PO SCH (22:30)
[2022-01-01] MEDS: ASPIRIN EC 81 MG TABLET PO SCH (22:30)
[2022-01-02 05:05] LABS: Basophils # 0.1 10*3/uL (0.0-0.2); Basophils % 0.6 % (0.0-0.8); Eosinophils # 0.2 10*3/uL (0.0-0.87); Eosinophils % 2.5 % (0.00-10.9); Hematocrit 30.5 VOL% (42.0-52.0); Hemoglobin 9.7 GM/DL (14.0-18.0); Immature Granulocytes Absolute 0.09 #; Lymphocytes # 0.9 10*3/uL (1.4-4.0); Lymphocytes % 10.2 % (21.2-54.2); Mean Corpuscular HGB Conc 31.8 GM/DL (32-36); Mean Corpuscular Volume 103.4 FL (87-102); Mean Platelet Volume 11.5 FL (9.6-12.0); Monocytes # 1.1 10*3/uL (0.11-0.8); Monocytes % 12.4 % (1.7-12.7); Neutrophils % 73.3 % (38.7-73.9); Platelet Count 221 T/CUMM (130-400); Red Blood Count 2.95 MC/CUMM (3.8-5.5); Red Cell Distribution Width 14.6 % (9.3-17.3); White Blood Count 8.9 T/CUMM (4-12)
[2022-01-02 05:20] LABS: Calcium 9.7 MG/DL (8.5-10.1); Potassium 4.6 MMOL/L (3.5-5.1)
[2022-01-02] MEDS: SODIUM CHLORIDE 0.9% 1,000 ML IV SCH (06:27)
[2022-01-02] MEDS ORDERED: BUPIVACAINE 0.5% 50 ML VIAL ONE (09:29)
[2022-01-02] MEDS ORDERED: fentaNYL 100 MCG/2 ML VIAL ONE (09:38)
[2022-01-02] MEDS ORDERED: ePHEDrine 50 MG/ML VIAL ONE (10:00)
[2022-01-02] MEDS ORDERED: SODIUM CHLORIDE 0.9% 250 ML IV SCH (10:00)
[2022-01-02] MEDS ORDERED: ONDANSETRON 4 MG/2 ML VIAL ONE (10:44)
[2022-01-02] MEDS ORDERED: propofoL 200 MG/20 ML VIAL IV ONE (10:44)
[2022-01-02] MEDS ORDERED: LIDOCAINE 2% 5 ML VIAL ONE (10:44)
[2022-01-02] MEDS ORDERED: HEPARIN 10,000 UNIT/10 ML VIAL IV PRN (12:01)
[2022-01-02] MEDS ORDERED: VANCOMYCIN INJ 750 MG in SODIUM CHLORIDE 0.9% 250 ML IV PRN (12:35)
[2022-01-02] MEDS: (Sucroferric Oxyhydroxide [Velphoro] 500 mg Tablet,Chewable) PO SCH ×2 (13:12→18:19)
[2022-01-02] MEDS: DORZOLAMIDE/TIMOLOL OPH SOLN 10 ML BOTTLE RIGHT EYE SCH ×2 (14:07→21:25)
[2022-01-02] MEDS: cilostazoL 100 MG TABLET PO SCH ×2 (14:07→21:12)
[2022-01-02] MEDS: ACETAMINOPHEN 325 MG TABLET PO PRN ×2 (15:37→21:12)
[2022-01-02] MEDS ORDERED: VANCOMYCIN INJ 1,500 MG in SODIUM CHLORIDE 0.9% 500 ML IV ONE (16:00)
[2022-01-02] MEDS: INSULIN LISPRO 100 UNIT/ML SUBCUT SCH ×2 (18:19→21:25)
[2022-01-02] MEDS ORDERED: LATANOPROST 0.005% OPH SOLN 2.5 ML BOTTLE RIGHT EYE SCH (21:00)
[2022-01-02] MEDS ORDERED: ISOSORBIDE MONONITRATE 30 MG TABLET PO SCH (21:00)
[2022-01-02] MEDS ORDERED: CLOPIDOGREL 75 MG TABLET PO SCH ×2 (21:00)
[2022-01-02] MEDS: ROSUVASTATIN 20 MG TABLET PO SCH (21:11)
[2022-01-02] MEDS: LORATADINE 10 MG TABLET PO SCH (21:12)
[2022-01-02] MEDS: ASPIRIN EC 81 MG TABLET PO SCH (21:12)
[2022-01-02] MEDS: EZETIMIBE 10 MG TABLET PO SCH (21:12)
[2022-01-02] MEDS: FERROUS SULFATE 325 MG TABLET PO SCH (21:13)
[2022-01-02] MEDS: ASCORBIC ACID 500 MG TABLET PO SCH (21:13)
[2022-01-02] MEDS: NEBIVOLOL 5 MG TABLET PO SCH (21:13)
[2022-01-03 05:04] LABS: Basophils # 0.1 10*3/uL (0.0-0.2); Basophils % 0.4 % (0.0-0.8); Eosinophils # 0.3 10*3/uL (0.0-0.87); Eosinophils % 2.3 % (0.00-10.9); Hematocrit 30.9 VOL% (42.0-52.0); Hemoglobin 9.8 GM/DL (14.0-18.0); Immature Granulocytes Absolute 0.11 #; Lymphocytes # 0.7 10*3/uL (1.4-4.0); Lymphocytes % 6.6 % (21.2-54.2); Mean Corpuscular HGB Conc 31.7 GM/DL (32-36); Mean Corpuscular Volume 103.7 FL (87-102); Mean Platelet Volume 10.9 FL (9.6-12.0); Monocytes # 1.2 10*3/uL (0.11-0.8); Monocytes % 10.4 % (1.7-12.7); Neutrophils % 79.3 % (38.7-73.9); Platelet Count 227 T/CUMM (130-400); Red Blood Count 2.98 MC/CUMM (3.8-5.5); Red Cell Distribution Width 14.7 % (9.3-17.3); White Blood Count 11.2 T/CUMM (4-12)
[2022-01-03 05:21] LABS: Calcium 9.1 MG/DL (8.5-10.1); Osmolality,Calculated 286.7 MOS/KG (273-304); Potassium 4.5 MMOL/L (3.5-5.1)
[2022-01-03] MEDS: INSULIN LISPRO 100 UNIT/ML SUBCUT SCH (08:14)
[2022-01-03] MEDS: cilostazoL 100 MG TABLET PO SCH (08:50)
[2022-01-03] MEDS ORDERED: PANTOPRAZOLE 40 MG TABLET PO SCH (09:00)
[2022-01-03] MEDS: (Sucroferric Oxyhydroxide [Velphoro] 500 mg Tablet,Chewable) PO SCH (09:25)
[2022-01-03] MEDS: DORZOLAMIDE/TIMOLOL OPH SOLN 10 ML BOTTLE RIGHT EYE SCH (09:25)
[2022-01-03 09:35] VITALS: BP 105/50
== END 2022-01-03 11:00 | disposition home health service (06) ==
LOC: N.2W 11:15 → N.CL 11:15 → N.2W 16:15
PROVIDERS: ADMIT Internal Medicine Cardiovascular Disease; ATTEND Internal Medicine Cardiovascular Disease

== ENCOUNTER 2022-01-10 15:04 | Inpatient (IN) ==
[2022-01-10] MEDS ORDERED: GLUCAGON 1 MG VIAL IM PRN (15:16)
[2022-01-10] MEDS ORDERED: HYDROmorphone 1 MG/1 ML SYRINGE IV PRN (15:16)
[2022-01-10] MEDS ORDERED: ONDANSETRON 4 MG/2 ML VIAL IV PRN (15:16)
[2022-01-10] MEDS ORDERED: BISACODYL 5 MG TABLET PO PRN (15:16)
[2022-01-10] MEDS ORDERED: ACETAMINOPHEN 325 MG TABLET PO PRN (15:20)
[2022-01-10 17:14] LABS: Basophils # 0.1 10*3/uL (0.0-0.2); Basophils % 0.3 % (0.0-0.8); Eosinophils # 0.2 10*3/uL (0.0-0.87); Eosinophils % 1.4 % (0.00-10.9); Hematocrit 27.3 VOL% (42.0-52.0); Hemoglobin 8.4 GM/DL (14.0-18.0); Immature Granulocytes % 2.7 %; Immature Granulocytes Absolute 0.45 #; Mean Corpuscular HGB Conc 30.8 GM/DL (32-36); Mean Corpuscular Volume 105.8 FL (87-102); Mean Platelet Volume 11.1 FL (9.6-12.0); Monocytes # 1.5 10*3/uL (0.11-0.8); Monocytes % 9.2 % (1.7-12.7); Neutrophils % 80.4 % (38.7-73.9); Platelet Count 286 T/CUMM (130-400); Red Blood Count 2.58 MC/CUMM (3.8-5.5); Red Cell Distribution Width 15.6 % (9.3-17.3); White Blood Count 16.8 T/CUMM (4-12)
[2022-01-10 17:24] LABS: Albumin 2.9 G/DL (3.4-5.0); Bilirubin,Total 0.5 MG/DL (0.20-1.00); Osmolality,Calculated 290.8 MOS/KG (273-304); Potassium 3.7 MMOL/L (3.5-5.1); Total Protein 7.8 G/DL (6.4-8.2)
[2022-01-10] MEDS ORDERED: DEXTROSE 10% 250 ML BAG IV PRN (18:11)
[2022-01-10] MEDS: INSULIN REGULAR 100 UNIT/ML SUBCUT SCH ×2 (19:21→22:48)
[2022-01-10] MEDS ORDERED: ISOSORBIDE MONONITRATE 30 MG TABLET PO SCH (21:00)
[2022-01-10] MEDS: ASCORBIC ACID 500 MG TABLET PO SCH (22:23)
[2022-01-10] MEDS: CLOPIDOGREL 75 MG TABLET PO SCH (22:23)
[2022-01-10] MEDS: ASPIRIN EC 81 MG TABLET PO SCH (22:23)
[2022-01-10] MEDS: LORATADINE 10 MG TABLET PO SCH (22:24)
[2022-01-10] MEDS: ROSUVASTATIN 20 MG TABLET PO SCH (22:24)
[2022-01-10] MEDS: EZETIMIBE 10 MG TABLET PO SCH (22:24)
[2022-01-10] MEDS: cilostazoL 100 MG TABLET PO SCH (22:24)
[2022-01-10] MEDS: NEBIVOLOL 5 MG TABLET PO SCH (22:24)
[2022-01-10] MEDS: DORZOLAMIDE/TIMOLOL OPH SOLN 10 ML BOTTLE RIGHT EYE SCH (22:28)
[2022-01-10] MEDS: LATANOPROST 0.005% OPH SOLN 2.5 ML BOTTLE RIGHT EYE SCH (22:29)
[2022-01-10] MEDS: PIPERACILLIN/TAZOBACTAM 3,375 MG in SODIUM CHLORIDE 0.9% 100 ML IV SCH (22:49)
[2022-01-10] MEDS ORDERED: ISOSORBIDE MONONITRATE 30 MG TABLET PO ONE (22:54)
[2022-01-10] MEDS ORDERED: INSULIN GLARGINE 100 UNIT/ML SUBCUT ONE (23:00)
[2022-01-11] MEDS: PIPERACILLIN/TAZOBACTAM 3,375 MG in SODIUM CHLORIDE 0.9% 100 ML IV SCH ×3 (05:10→15:30)
[2022-01-11 05:29] LABS: Basophils # 0.1 10*3/uL (0.0-0.2); Basophils % 0.3 % (0.0-0.8); Eosinophils # 0.3 10*3/uL (0.0-0.87); Eosinophils % 1.9 % (0.00-10.9); Hematocrit 24.5 VOL% (42.0-52.0); Hemoglobin 7.5 GM/DL (14.0-18.0); Immature Granulocytes % 2.6 %; Immature Granulocytes Absolute 0.41 #; Lymphocytes # 1.3 10*3/uL (1.4-4.0); Lymphocytes % 8.5 % (21.2-54.2); Mean Corpuscular HGB Conc 30.6 GM/DL (32-36); Mean Corpuscular Volume 106.5 FL (87-102); Mean Platelet Volume 11.1 FL (9.6-12.0); Monocytes # 1.4 10*3/uL (0.11-0.8); Monocytes % 8.9 % (1.7-12.7); Neutrophils % 77.8 % (38.7-73.9); Platelet Count 279 T/CUMM (130-400); Red Cell Distribution Width 15.3 % (9.3-17.3); White Blood Count 15.6 T/CUMM (4-12)
[2022-01-11 05:50] LABS: Albumin 2.4 G/DL (3.4-5.0); Bilirubin,Total 0.4 MG/DL (0.20-1.00); Calcium 9.8 MG/DL (8.5-10.1); Osmolality,Calculated 286.8 MOS/KG (273-304); Potassium 3.5 MMOL/L (3.5-5.1); Total Protein 7.1 G/DL (6.4-8.2)
[2022-01-11] MEDS: SODIUM CHLORIDE 0.45% 1,000 ML IV SCH ×2 (07:48→14:29)
[2022-01-11] MEDS: INSULIN REGULAR 100 UNIT/ML SUBCUT SCH ×4 (07:48→21:06)
[2022-01-11] MEDS: INSULIN GLARGINE 100 UNIT/ML SUBCUT SCH ×2 (08:48→21:07)
[2022-01-11] MEDS: DORZOLAMIDE/TIMOLOL OPH SOLN 10 ML BOTTLE RIGHT EYE SCH ×2 (08:48→21:08)
[2022-01-11] MEDS: cilostazoL 100 MG TABLET PO SCH ×2 (08:48→21:07)
[2022-01-11] MEDS: PANTOPRAZOLE 40 MG TABLET PO SCH (08:48)
[2022-01-11] MEDS ORDERED: PANTOPRAZOLE 40 MG TABLET PO SCH (09:00)
[2022-01-11] MEDS ORDERED: HEPARIN 10,000 UNIT/10 ML VIAL IV PRN (10:58)
[2022-01-11] MEDS ORDERED: ALUMINUM/MAGNES/SIMETH MAX STR 30 ML UDCUP PO ONE (11:06)
[2022-01-11] MEDS ORDERED: VANCOMYCIN INJ 1,000 MG in SODIUM CHLORIDE 0.9% 250 ML IV ONE ×2 (11:30→17:00)
[2022-01-11] MEDS ORDERED: propofoL 200 MG/20 ML VIAL IV ONE (12:35)
[2022-01-11] MEDS ORDERED: ONDANSETRON 4 MG/2 ML VIAL ONE (12:35)
[2022-01-11] MEDS ORDERED: fentaNYL 100 MCG/2 ML VIAL ONE (12:35)
[2022-01-11] MEDS ORDERED: LIDOCAINE 2% 5 ML VIAL ONE (12:35)
[2022-01-11] MEDS ORDERED: SODIUM CHLORIDE 0.9% 250 ML IV SCH (13:00)
[2022-01-11] MEDS ORDERED: PHENYLEPHRINE 1 MG/10 ML SYRINGE IV ONE (13:16)
[2022-01-11] MEDS ORDERED: VANCOMYCIN 1,000 MG VIAL ONE (13:21)
[2022-01-11] MEDS ORDERED: SEVOFLURANE 1 UNIT/15 MINUTE INH ONE (13:46)
[2022-01-11] MEDS ORDERED: ePHEDrine 50 MG/ML VIAL ONE (13:49)
[2022-01-11] MEDS ORDERED: PIPERACILLIN/TAZOBACTAM 3,375 MG VIAL IV ONE (14:03)
[2022-01-11] MEDS ORDERED: SODIUM CHLORIDE 0.9% 100 ML IV ONE (14:05)
[2022-01-11] MEDS ORDERED: ONDANSETRON 4 MG/2 ML VIAL IV PRN (14:18)
[2022-01-11] MEDS ORDERED: HYDROmorphone 1 MG/1 ML SYRINGE IV PRN (14:19)
[2022-01-11] MEDS: HYDROmorphone 1 MG/1 ML SYRINGE IV PRN ×2 (14:19→14:27)
[2022-01-11] MEDS: ALUMINUM/MAGNES/SIMETH MAX STR 30 ML UDCUP PO PRN ×2 (15:31→21:14)
[2022-01-11] MEDS: EZETIMIBE 10 MG TABLET PO SCH (21:07)
[2022-01-11] MEDS: ASCORBIC ACID 500 MG TABLET PO SCH (21:08)
[2022-01-11] MEDS: ROSUVASTATIN 20 MG TABLET PO SCH (21:08)
[2022-01-11] MEDS: NEBIVOLOL 5 MG TABLET PO SCH (21:08)
[2022-01-11] MEDS: ASPIRIN EC 81 MG TABLET PO SCH (21:08)
[2022-01-11] MEDS: LORATADINE 10 MG TABLET PO SCH (21:08)
[2022-01-11] MEDS: CLOPIDOGREL 75 MG TABLET PO SCH (21:08)
[2022-01-11] MEDS: ISOSORBIDE MONONITRATE 60 MG TABLET PO SCH (21:08)
[2022-01-11] MEDS: LATANOPROST 0.005% OPH SOLN 2.5 ML BOTTLE RIGHT EYE SCH (21:08)
[2022-01-12] MEDS: PIPERACILLIN/TAZOBACTAM 3,375 MG in SODIUM CHLORIDE 0.9% 100 ML IV SCH ×2 (02:50→13:30)
[2022-01-12 05:41] LABS: Basophils # 0.1 10*3/uL (0.0-0.2); Basophils % 0.4 % (0.0-0.8); Eosinophils # 0.3 10*3/uL (0.0-0.87); Eosinophils % 2.3 % (0.00-10.9); Hematocrit 25.4 VOL% (42.0-52.0); Hemoglobin 7.7 GM/DL (14.0-18.0); Immature Granulocytes % 5.1 %; Immature Granulocytes Absolute 0.71 #; Lymphocytes # 1.3 10*3/uL (1.4-4.0); Lymphocytes % 9.1 % (21.2-54.2); Mean Corpuscular HGB Conc 30.3 GM/DL (32-36); Mean Corpuscular Volume 108.1 FL (87-102); Mean Platelet Volume 10.3 FL (9.6-12.0); Monocytes # 1.4 10*3/uL (0.11-0.8); Monocytes % 10.1 % (1.7-12.7); Platelet Count 288 T/CUMM (130-400); Red Blood Count 2.35 MC/CUMM (3.8-5.5); Red Cell Distribution Width 15.3 % (9.3-17.3); White Blood Count 13.9 T/CUMM (4-12)
[2022-01-12 06:11] LABS: Calcium 9.7 MG/DL (8.5-10.1); Osmolality,Calculated 283.7 MOS/KG (273-304); Phosphorous 3.4 MG/DL (2.5-4.9); Potassium 4.2 MMOL/L (3.5-5.1)
[2022-01-12 06:17] LABS: Eosinophils 3 % (0-10); Lymphocytes 11 % (20-55); Platelet Estimate Normal; Total Cells Counted 100
[2022-01-12] MEDS: INSULIN REGULAR 100 UNIT/ML SUBCUT SCH ×4 (07:49→21:30)
[2022-01-12] MEDS: PANTOPRAZOLE 40 MG TABLET PO SCH (08:47)
[2022-01-12] MEDS: cilostazoL 100 MG TABLET PO SCH ×2 (08:47→20:33)
[2022-01-12] MEDS: DORZOLAMIDE/TIMOLOL OPH SOLN 10 ML BOTTLE RIGHT EYE SCH ×2 (08:48→20:34)
[2022-01-12] MEDS: INSULIN GLARGINE 100 UNIT/ML SUBCUT SCH ×2 (08:48→21:30)
[2022-01-12] MEDS: ALUMINUM/MAGNES/SIMETH MAX STR 30 ML UDCUP PO PRN ×2 (11:25→17:33)
[2022-01-12] MEDS ORDERED: ZINC OXIDE PASTE 113 GM TUBE TOP PRN (13:45)
[2022-01-12] MEDS: SODIUM CHLORIDE 0.45% 1,000 ML IV SCH (14:43)
[2022-01-12] MEDS: EZETIMIBE 10 MG TABLET PO SCH (20:33)
[2022-01-12] MEDS: ASCORBIC ACID 500 MG TABLET PO SCH (20:33)
[2022-01-12] MEDS: CALCIUM CARBONATE CHEW 500 MG TABLET PO PRN (20:33)
[2022-01-12] MEDS: CLOPIDOGREL 75 MG TABLET PO SCH (20:33)
[2022-01-12] MEDS: ASPIRIN EC 81 MG TABLET PO SCH (20:34)
[2022-01-12] MEDS: LORATADINE 10 MG TABLET PO SCH (20:34)
[2022-01-12] MEDS: ROSUVASTATIN 20 MG TABLET PO SCH (20:34)
[2022-01-12] MEDS: ISOSORBIDE MONONITRATE 60 MG TABLET PO SCH (20:34)
[2022-01-12] MEDS: LATANOPROST 0.005% OPH SOLN 2.5 ML BOTTLE RIGHT EYE SCH (20:34)
[2022-01-12] MEDS: NEBIVOLOL 5 MG TABLET PO SCH (20:34)
[2022-01-13] MEDS: PIPERACILLIN/TAZOBACTAM 3,375 MG in SODIUM CHLORIDE 0.9% 100 ML IV SCH ×2 (02:33→14:46)
[2022-01-13] MEDS: ALUMINUM/MAGNES/SIMETH MAX STR 30 ML UDCUP PO PRN ×2 (02:36→18:45)
[2022-01-13] MEDS: cilostazoL 100 MG TABLET PO SCH ×3 (08:01→20:46)
[2022-01-13] MEDS: INSULIN REGULAR 100 UNIT/ML SUBCUT SCH ×4 (08:03→20:37)
[2022-01-13] MEDS: PANTOPRAZOLE 40 MG TABLET PO SCH (08:05)
[2022-01-13] MEDS: DORZOLAMIDE/TIMOLOL OPH SOLN 10 ML BOTTLE RIGHT EYE SCH ×2 (08:05→20:49)
[2022-01-13] MEDS ORDERED: SODIUM CHLORIDE 0.9% 1,000 ML IV PRN (08:14)
[2022-01-13] MEDS: INSULIN GLARGINE 100 UNIT/ML SUBCUT SCH ×2 (08:20→20:47)
[2022-01-13 09:31] LABS: Basophils # 0.1 10*3/uL (0.0-0.2); Basophils % 0.3 % (0.0-0.8); Eosinophils # 0.4 10*3/uL (0.0-0.87); Eosinophils % 2.1 % (0.00-10.9); Hematocrit 22.5 VOL% (42.0-52.0); Hemoglobin 6.9 GM/DL (14.0-18.0); Immature Granulocytes % 4.6 %; Lymphocytes # 1.3 10*3/uL (1.4-4.0); Lymphocytes % 7.2 % (21.2-54.2); Mean Corpuscular HGB Conc 30.7 GM/DL (32-36); Mean Corpuscular Volume 107.1 FL (87-102); Mean Platelet Volume 10.4 FL (9.6-12.0); Monocytes # 1.4 10*3/uL (0.11-0.8); Monocytes % 8.1 % (1.7-12.7); Neutrophils % 77.7 % (38.7-73.9); Platelet Count 303 T/CUMM (130-400); Red Cell Distribution Width 15.2 % (9.3-17.3); White Blood Count 17.5 T/CUMM (4-12)
[2022-01-13 09:51] LABS: Anisocytosis 1+; Band Neutrophils 4 % (0-10); Eosinophils 3 % (0-10); Lymphocytes 10 % (20-55); Metamyelocytes 3 %; Myelocytes 1 %; Platelet Estimate Normal; Total Cells Counted 100
[2022-01-13 09:52] LABS: Polychromasia Slight
[2022-01-13 09:54] LABS: Osmolality,Calculated 282.1 MOS/KG (273-304)
[2022-01-13] MEDS: SODIUM CHLORIDE 0.45% 1,000 ML IV SCH (15:55)
[2022-01-13] MEDS: CALCIUM CARBONATE CHEW 500 MG TABLET PO PRN (16:07)
[2022-01-13 18:02] LABS: Hematocrit 30.8 VOL% (42.0-52.0); Hemoglobin 9.7 GM/DL (14.0-18.0)
[2022-01-13] MEDS: CLOPIDOGREL 75 MG TABLET PO SCH (20:46)
[2022-01-13] MEDS: LORATADINE 10 MG TABLET PO SCH (20:46)
[2022-01-13] MEDS: NEBIVOLOL 5 MG TABLET PO SCH (20:46)
[2022-01-13] MEDS: ROSUVASTATIN 20 MG TABLET PO SCH (20:46)
[2022-01-13] MEDS: ASCORBIC ACID 500 MG TABLET PO SCH (20:46)
[2022-01-13] MEDS: ISOSORBIDE MONONITRATE 60 MG TABLET PO SCH (20:46)
[2022-01-13] MEDS: EZETIMIBE 10 MG TABLET PO SCH (20:46)
[2022-01-13] MEDS: ASPIRIN EC 81 MG TABLET PO SCH (20:47)
[2022-01-13] MEDS: LATANOPROST 0.005% OPH SOLN 2.5 ML BOTTLE RIGHT EYE SCH (21:01)
[2022-01-14] MEDS: ALUMINUM/MAGNES/SIMETH MAX STR 30 ML UDCUP PO PRN (02:23)
[2022-01-14] MEDS: PIPERACILLIN/TAZOBACTAM 3,375 MG in SODIUM CHLORIDE 0.9% 100 ML IV SCH ×2 (03:25→14:11)
[2022-01-14 05:36] LABS: Basophils # 0.1 10*3/uL (0.0-0.2); Basophils % 0.3 % (0.0-0.8); Eosinophils # 0.3 10*3/uL (0.0-0.87); Eosinophils % 1.5 % (0.00-10.9); Hematocrit 30.4 VOL% (42.0-52.0); Hemoglobin 9.6 GM/DL (14.0-18.0); Immature Granulocytes % 3.1 %; Lymphocytes # 1.1 10*3/uL (1.4-4.0); Lymphocytes % 5.7 % (21.2-54.2); Mean Corpuscular HGB Conc 31.6 GM/DL (32-36); Mean Platelet Volume 10.2 FL (9.6-12.0); Monocytes # 1.3 10*3/uL (0.11-0.8); Monocytes % 6.5 % (1.7-12.7); Neutrophils % 82.9 % (38.7-73.9); Platelet Count 286 T/CUMM (130-400); Red Blood Count 3.01 MC/CUMM (3.8-5.5); Red Cell Distribution Width 17.1 % (9.3-17.3); White Blood Count 19.4 T/CUMM (4-12)
[2022-01-14 05:52] LABS: Calcium 9.6 MG/DL (8.5-10.1); Osmolality,Calculated 278.2 MOS/KG (273-304); Potassium 4.4 MMOL/L (3.5-5.1)
[2022-01-14 06:28] LABS: Lymphocytes 15 % (20-55); Total Cells Counted 100
[2022-01-14 06:29] LABS: Platelet Estimate Normal
[2022-01-14] MEDS: INSULIN GLARGINE 100 UNIT/ML SUBCUT SCH ×2 (08:53→20:11)
[2022-01-14] MEDS: cilostazoL 100 MG TABLET PO SCH ×2 (08:53→20:15)
[2022-01-14] MEDS: PANTOPRAZOLE 40 MG TABLET PO SCH (08:53)
[2022-01-14] MEDS: DORZOLAMIDE/TIMOLOL OPH SOLN 10 ML BOTTLE RIGHT EYE SCH ×2 (08:54→20:10)
[2022-01-14] MEDS ORDERED: cefTRIAXone 1,000 MG VIAL IM ONE (09:34)
[2022-01-14] MEDS: INSULIN REGULAR 100 UNIT/ML SUBCUT SCH ×4 (09:45→20:18)
[2022-01-14] MEDS: SODIUM CHLORIDE 0.45% 1,000 ML IV SCH (15:32)
[2022-01-14] MEDS: ASPIRIN EC 81 MG TABLET PO SCH (20:10)
[2022-01-14] MEDS: ISOSORBIDE MONONITRATE 60 MG TABLET PO SCH (20:10)
[2022-01-14] MEDS: ROSUVASTATIN 20 MG TABLET PO SCH (20:10)
[2022-01-14] MEDS: NEBIVOLOL 5 MG TABLET PO SCH (20:10)
[2022-01-14] MEDS: LORATADINE 10 MG TABLET PO SCH (20:10)
[2022-01-14] MEDS: CLOPIDOGREL 75 MG TABLET PO SCH (20:15)
[2022-01-14] MEDS: ASCORBIC ACID 500 MG TABLET PO SCH (20:16)
[2022-01-14] MEDS: LATANOPROST 0.005% OPH SOLN 2.5 ML BOTTLE RIGHT EYE SCH (20:16)
[2022-01-14] MEDS: EZETIMIBE 10 MG TABLET PO SCH (20:16)
[2022-01-15] MEDS: PIPERACILLIN/TAZOBACTAM 3,375 MG in SODIUM CHLORIDE 0.9% 100 ML IV SCH ×2 (02:54→03:07)
[2022-01-15 06:40] LABS: Basophils % 0.2 % (0.0-0.8); Eosinophils # 0.4 10*3/uL (0.0-0.87); Hematocrit 31.5 VOL% (42.0-52.0); Hemoglobin 9.7 GM/DL (14.0-18.0); Immature Granulocytes % 2.8 %; Lymphocytes # 0.7 10*3/uL (1.4-4.0); Lymphocytes % 3.7 % (21.2-54.2); Mean Corpuscular HGB Conc 30.8 GM/DL (32-36); Mean Platelet Volume 10.4 FL (9.6-12.0); Monocytes # 0.6 10*3/uL (0.11-0.8); Monocytes % 3.1 % (1.7-12.7); Neutrophils % 88.2 % (38.7-73.9); Platelet Count 291 T/CUMM (130-400); Red Blood Count 3.03 MC/CUMM (3.8-5.5); Red Cell Distribution Width 16.5 % (9.3-17.3); White Blood Count 18.2 T/CUMM (4-12)
[2022-01-15 07:00] LABS: Calcium 9.6 MG/DL (8.5-10.1); Potassium 4.3 MMOL/L (3.5-5.1)
[2022-01-15 07:15] LABS: Anisocytosis 1+; Band Neutrophils 3 % (0-10); Eosinophils 4 % (0-10); Lymphocytes 5 % (20-55); Macrocytosis 1+; Metamyelocytes 1 %; Platelet Estimate Normal; Total Cells Counted 100
[2022-01-15] MEDS: PANTOPRAZOLE 40 MG TABLET PO SCH ×2 (09:44→09:45)
[2022-01-15] MEDS: INSULIN REGULAR 100 UNIT/ML SUBCUT SCH ×4 (09:45→21:05)
[2022-01-15] MEDS: INSULIN GLARGINE 100 UNIT/ML SUBCUT SCH ×2 (09:49→20:57)
[2022-01-15] MEDS: DORZOLAMIDE/TIMOLOL OPH SOLN 10 ML BOTTLE RIGHT EYE SCH ×2 (09:51→20:57)
[2022-01-15] MEDS: cilostazoL 100 MG TABLET PO SCH ×2 (09:52→20:56)
[2022-01-15] MEDS: ALUMINUM/MAGNES/SIMETH MAX STR 30 ML UDCUP PO PRN ×2 (13:54→20:55)
[2022-01-15] MEDS: SODIUM CHLORIDE 0.45% 1,000 ML IV SCH (16:21)
[2022-01-15] MEDS: ISOSORBIDE MONONITRATE 60 MG TABLET PO SCH (20:55)
[2022-01-15] MEDS: ASCORBIC ACID 500 MG TABLET PO SCH (20:55)
[2022-01-15] MEDS: EZETIMIBE 10 MG TABLET PO SCH (20:55)
[2022-01-15] MEDS: CLOPIDOGREL 75 MG TABLET PO SCH (20:56)
[2022-01-15] MEDS: ROSUVASTATIN 20 MG TABLET PO SCH (20:56)
[2022-01-15] MEDS: ASPIRIN EC 81 MG TABLET PO SCH (20:56)
[2022-01-15] MEDS: NEBIVOLOL 5 MG TABLET PO SCH (20:56)
[2022-01-15] MEDS: LORATADINE 10 MG TABLET PO SCH (20:56)
[2022-01-15] MEDS: LATANOPROST 0.005% OPH SOLN 2.5 ML BOTTLE RIGHT EYE SCH (20:57)
[2022-01-16 06:14] LABS: Basophils % 0.1 % (0.0-0.8); Eosinophils # 0.5 10*3/uL (0.0-0.87); Eosinophils % 2.5 % (0.00-10.9); Hematocrit 31.7 VOL% (42.0-52.0); Hemoglobin 9.5 GM/DL (14.0-18.0); Immature Granulocytes % 3.2 %; Immature Granulocytes Absolute 0.59 #; Lymphocytes # 0.6 10*3/uL (1.4-4.0); Lymphocytes % 2.9 % (21.2-54.2); Mean Platelet Volume 10.3 FL (9.6-12.0); Monocytes # 0.7 10*3/uL (0.11-0.8); Monocytes % 3.9 % (1.7-12.7); Neutrophils % 87.4 % (38.7-73.9); Platelet Count 324 T/CUMM (130-400); Red Blood Count 3.02 MC/CUMM (3.8-5.5); White Blood Count 18.7 T/CUMM (4-12)
[2022-01-16 06:34] LABS: Eosinophils 5 % (0-10); Lymphocytes 1 % (20-55); Platelet Estimate Adequate; Total Cells Counted 100
[2022-01-16 06:35] LABS: Hypochromia Slight; Microcytosis Slight
[2022-01-16 06:39] LABS: Calcium 9.7 MG/DL (8.5-10.1); Osmolality,Calculated 283.4 MOS/KG (273-304); Potassium 4.8 MMOL/L (3.5-5.1)
[2022-01-16] MEDS ORDERED: VANCOMYCIN INJ 1,000 MG in SODIUM CHLORIDE 0.9% 250 ML IV ONE (07:00)
[2022-01-16] MEDS: INSULIN REGULAR 100 UNIT/ML SUBCUT SCH ×4 (07:38→21:14)
[2022-01-16] MEDS: cilostazoL 100 MG TABLET PO SCH ×2 (08:39→20:32)
[2022-01-16] MEDS: INSULIN GLARGINE 100 UNIT/ML SUBCUT SCH ×2 (08:39→20:34)
[2022-01-16] MEDS: PANTOPRAZOLE 40 MG TABLET PO SCH (08:39)
[2022-01-16] MEDS ORDERED: SEVOFLURANE 1 UNIT/15 MINUTE INH ONE (08:53)
[2022-01-16] MEDS ORDERED: LIDOCAINE 2% 5 ML VIAL ONE (08:53)
[2022-01-16] MEDS ORDERED: propofoL 200 MG/20 ML VIAL IV ONE (08:53)
[2022-01-16] MEDS ORDERED: ONDANSETRON 4 MG/2 ML VIAL ONE (08:53)
[2022-01-16] MEDS ORDERED: ETOMIDATE 40 MG/20 ML VIAL IV ONE (08:53)
[2022-01-16] MEDS ORDERED: fentaNYL 100 MCG/2 ML VIAL ONE (08:53)
[2022-01-16] MEDS ORDERED: KETAMINE 500 MG/10 ML VIAL ONE (09:15)
[2022-01-16] MEDS ORDERED: SODIUM CHLORIDE 0.9% 250 ML IV SCH (09:30)
[2022-01-16] MEDS: DORZOLAMIDE/TIMOLOL OPH SOLN 10 ML BOTTLE RIGHT EYE SCH ×2 (09:31→20:39)
[2022-01-16] MEDS ORDERED: ePHEDrine 50 MG/ML VIAL ONE (09:47)
[2022-01-16] MEDS ORDERED: KETOROLAC 30 MG/1 ML VIAL ONE (10:10)
[2022-01-16] MEDS ORDERED: PHENYLEPHRINE 1 MG/10 ML SYRINGE IV ONE (10:24)
[2022-01-16] MEDS ORDERED: ONDANSETRON 4 MG/2 ML VIAL IV PRN (11:15)
[2022-01-16] MEDS ORDERED: HYDROmorphone 1 MG/1 ML SYRINGE IV PRN (11:15)
[2022-01-16] MEDS ORDERED: TUBERCULIN SKIN TEST 0.1 ML SYRINGE INTRADERM ONE (17:00)
[2022-01-16] MEDS: SODIUM CHLORIDE 0.45% 1,000 ML IV SCH (17:04)
[2022-01-16] MEDS ORDERED: KETOROLAC 10 MG TABLET PO SCH (18:00)
[2022-01-16] MEDS: diphenhydrAMINE CAP 25 MG CAPSULE PO PRN (19:14)
[2022-01-16] MEDS: EZETIMIBE 10 MG TABLET PO SCH (20:32)
[2022-01-16] MEDS: ASPIRIN EC 81 MG TABLET PO SCH (20:32)
[2022-01-16] MEDS: ROSUVASTATIN 20 MG TABLET PO SCH (20:32)
[2022-01-16] MEDS: ISOSORBIDE MONONITRATE 60 MG TABLET PO SCH (20:32)
[2022-01-16] MEDS: NEBIVOLOL 5 MG TABLET PO SCH (20:32)
[2022-01-16] MEDS: LORATADINE 10 MG TABLET PO SCH (20:32)
[2022-01-16] MEDS: CLOPIDOGREL 75 MG TABLET PO SCH (20:33)
[2022-01-16] MEDS: ASCORBIC ACID 500 MG TABLET PO SCH (20:33)
[2022-01-16] MEDS: LATANOPROST 0.005% OPH SOLN 2.5 ML BOTTLE RIGHT EYE SCH (20:38)
[2022-01-16] MEDS ORDERED: predniSONE 20 MG TABLET PO ONE (21:00)
[2022-01-17 05:38] LABS: Basophils % 0.1 % (0.0-0.8); Eosinophils # 0.3 10*3/uL (0.0-0.87); Eosinophils % 1.4 % (0.00-10.9); Immature Granulocytes % 1.7 %; Immature Granulocytes Absolute 0.31 #; Lymphocytes # 0.5 10*3/uL (1.4-4.0); Lymphocytes % 2.5 % (21.2-54.2); Mean Corpuscular HGB Conc 30.8 GM/DL (32-36); Mean Corpuscular Volume 106.1 FL (87-102); Mean Platelet Volume 10.5 FL (9.6-12.0); Monocytes # 0.4 10*3/uL (0.11-0.8); Monocytes % 2.4 % (1.7-12.7); Neutrophils % 91.9 % (38.7-73.9); Platelet Count 301 T/CUMM (130-400); Red Blood Count 2.45 MC/CUMM (3.8-5.5); Red Cell Distribution Width 15.9 % (9.3-17.3); White Blood Count 18.2 T/CUMM (4-12)
[2022-01-17 06:03] LABS: Calcium 8.9 MG/DL (8.5-10.1); Osmolality,Calculated 288.8 MOS/KG (273-304); Potassium 5.3 MMOL/L (3.5-5.1)
[2022-01-17 06:15] LABS: Eosinophils 1 % (0-10); Hypochromia Slight; Lymphocytes 1 % (20-55); Microcytosis Slight; Platelet Estimate Adequate; Total Cells Counted 100
[2022-01-17] MEDS: INSULIN GLARGINE 100 UNIT/ML SUBCUT SCH ×2 (08:51→21:03)
[2022-01-17] MEDS: PANTOPRAZOLE 40 MG TABLET PO SCH (08:51)
[2022-01-17] MEDS: INSULIN REGULAR 100 UNIT/ML SUBCUT SCH ×4 (08:51→21:10)
[2022-01-17] MEDS: cilostazoL 100 MG TABLET PO SCH ×2 (08:51→21:04)
[2022-01-17] MEDS: DORZOLAMIDE/TIMOLOL OPH SOLN 10 ML BOTTLE RIGHT EYE SCH ×2 (08:52→21:05)
[2022-01-17] MEDS: SODIUM CHLORIDE 0.45% 1,000 ML IV SCH (16:34)
[2022-01-17] MEDS: CLOPIDOGREL 75 MG TABLET PO SCH (21:04)
[2022-01-17] MEDS: EZETIMIBE 10 MG TABLET PO SCH (21:05)
[2022-01-17] MEDS: NEBIVOLOL 5 MG TABLET PO SCH (21:05)
[2022-01-17] MEDS: ROSUVASTATIN 20 MG TABLET PO SCH (21:05)
[2022-01-17] MEDS: ISOSORBIDE MONONITRATE 60 MG TABLET PO SCH (21:05)
[2022-01-17] MEDS: LATANOPROST 0.005% OPH SOLN 2.5 ML BOTTLE RIGHT EYE SCH (21:05)
[2022-01-17] MEDS: ASCORBIC ACID 500 MG TABLET PO SCH (21:05)
[2022-01-17] MEDS: ASPIRIN EC 81 MG TABLET PO SCH (21:05)
[2022-01-17] MEDS: LORATADINE 10 MG TABLET PO SCH (21:05)
[2022-01-17] MEDS: diphenhydrAMINE CAP 25 MG CAPSULE PO PRN (22:37)
[2022-01-17] MEDS ORDERED: SODIUM CHLORIDE 0.9% 1,000 ML IV PRN (23:10)
[2022-01-18] MEDS: CALCIUM CARBONATE CHEW 500 MG TABLET PO PRN (01:59)
[2022-01-18 05:32] LABS: Basophils % 0.2 % (0.0-0.8); Eosinophils # 0.8 10*3/uL (0.0-0.87); Eosinophils % 3.9 % (0.00-10.9); Hematocrit 25.5 VOL% (42.0-52.0); Immature Granulocytes % 1.6 %; Lymphocytes # 0.6 10*3/uL (1.4-4.0); Lymphocytes % 2.9 % (21.2-54.2); Mean Corpuscular HGB Conc 31.4 GM/DL (32-36); Mean Corpuscular Volume 103.2 FL (87-102); Mean Platelet Volume 10.4 FL (9.6-12.0); Monocytes # 0.7 10*3/uL (0.11-0.8); Monocytes % 3.6 % (1.7-12.7); Neutrophils % 87.8 % (38.7-73.9); Platelet Count 343 T/CUMM (130-400); Red Blood Count 2.47 MC/CUMM (3.8-5.5); Red Cell Distribution Width 15.4 % (9.3-17.3); White Blood Count 19.3 T/CUMM (4-12)
[2022-01-18 05:46] LABS: Calcium 8.9 MG/DL (8.5-10.1); Osmolality,Calculated 285.2 MOS/KG (273-304); Potassium 4.5 MMOL/L (3.5-5.1)
[2022-01-18 05:56] LABS: Band Neutrophils 5 % (0-10); Eosinophils 3 % (0-10); Hypochromia Slight; Lymphocytes 1 % (20-55); Total Cells Counted 100
[2022-01-18 05:57] LABS: Macrocytosis 1+
[2022-01-18 05:58] LABS: Platelet Estimate Normal
[2022-01-18] MEDS: INSULIN REGULAR 100 UNIT/ML SUBCUT SCH ×4 (08:54→20:15)
[2022-01-18] MEDS: INSULIN GLARGINE 100 UNIT/ML SUBCUT SCH ×2 (08:54→20:15)
[2022-01-18] MEDS: PANTOPRAZOLE 40 MG TABLET PO SCH (08:56)
[2022-01-18] MEDS: cilostazoL 100 MG TABLET PO SCH ×2 (08:56→20:15)
[2022-01-18] MEDS: DORZOLAMIDE/TIMOLOL OPH SOLN 10 ML BOTTLE RIGHT EYE SCH ×2 (08:57→20:15)
[2022-01-18] MEDS: ACETAMINOPHEN 325 MG TABLET PO PRN (16:54)
[2022-01-18] MEDS: ASPIRIN EC 81 MG TABLET PO SCH (20:15)
[2022-01-18] MEDS: EZETIMIBE 10 MG TABLET PO SCH (20:15)
[2022-01-18] MEDS: ISOSORBIDE MONONITRATE 60 MG TABLET PO SCH (20:15)
[2022-01-18] MEDS: LORATADINE 10 MG TABLET PO SCH (20:15)
[2022-01-18] MEDS: NEBIVOLOL 5 MG TABLET PO SCH (20:15)
[2022-01-18] MEDS: ASCORBIC ACID 500 MG TABLET PO SCH (20:15)
[2022-01-18] MEDS: LATANOPROST 0.005% OPH SOLN 2.5 ML BOTTLE RIGHT EYE SCH (20:15)
[2022-01-18] MEDS: ROSUVASTATIN 20 MG TABLET PO SCH (20:15)
[2022-01-18] MEDS: CLOPIDOGREL 75 MG TABLET PO SCH (20:15)
[2022-01-19 05:26] LABS: Basophils # 0.1 10*3/uL (0.0-0.2); Basophils % 0.4 % (0.0-0.8); Eosinophils # 0.7 10*3/uL (0.0-0.87); Eosinophils % 5.6 % (0.00-10.9); Hematocrit 28.1 VOL% (42.0-52.0); Hemoglobin 8.8 GM/DL (14.0-18.0); Immature Granulocytes % 4.5 %; Immature Granulocytes Absolute 0.55 #; Lymphocytes # 0.6 10*3/uL (1.4-4.0); Lymphocytes % 4.7 % (21.2-54.2); Mean Corpuscular HGB Conc 31.3 GM/DL (32-36); Mean Corpuscular Volume 101.4 FL (87-102); Mean Platelet Volume 10.2 FL (9.6-12.0); Monocytes # 0.8 10*3/uL (0.11-0.8); Monocytes % 6.8 % (1.7-12.7); NRBC # 0.02 10*3/uL; Platelet Count 306 T/CUMM (130-400); Red Blood Count 2.77 MC/CUMM (3.8-5.5); Red Cell Distribution Width 15.7 % (9.3-17.3); White Blood Count 12.3 T/CUMM (4-12)
[2022-01-19 05:39] LABS: Calcium 8.5 MG/DL (8.5-10.1); Osmolality,Calculated 281.8 MOS/KG (273-304); Potassium 4.6 MMOL/L (3.5-5.1)
[2022-01-19 06:34] LABS: Band Neutrophils 1 % (0-10); Eosinophils 7 % (0-10); Hypochromia Slight; Lymphocytes 6 % (20-55); Microcytosis Slight; Platelet Estimate Adequate; Total Cells Counted 100
[2022-01-19] MEDS: INSULIN REGULAR 100 UNIT/ML SUBCUT SCH (07:11)
[2022-01-19] MEDS: INSULIN GLARGINE 100 UNIT/ML SUBCUT SCH (08:24)
[2022-01-19] MEDS: PANTOPRAZOLE 40 MG TABLET PO SCH (08:26)
[2022-01-19] MEDS: cilostazoL 100 MG TABLET PO SCH (08:26)
[2022-01-19] MEDS: DORZOLAMIDE/TIMOLOL OPH SOLN 10 ML BOTTLE RIGHT EYE SCH (08:27)
[2022-01-19 08:34] VITALS: BP 119/50
[2022-01-19] MEDS ORDERED: INFLUENZA VIRUS VACCINE 0.5 ML SYRINGE IM ONE (09:00)
[2022-01-19] MEDS ORDERED: FERROUS SULFATE 325 MG TABLET PO SCH (09:00)
[2022-01-19] MEDS: ACETAMINOPHEN 325 MG TABLET PO PRN (10:36)
== END 2022-01-19 10:42 | DRG 239 ==
LOC: N.5E 15:58
PROVIDERS: ADMIT Surgery; ATTEND Surgery